=== PATIENT | female | born 1950 | race Asian ===

== ENCOUNTER 2020-07-11 11:27 | Outpatient (REF) | payer MEDICARE, MEDICAID, SELFPAY | END 2020-07-11 11:28 | disposition home or self-care (01) | LOC: HO.MDS 11:27 | PROVIDERS: PCP Internal Medicine; Visit Provider Internal Medicine Medical Oncology | DX: D50.9 Iron deficiency anemia, unspecified (principal) | CPT/HCPCS: 96365; J2916 ==

== ENCOUNTER 2020-07-18 11:42 | Outpatient (REF) | payer MEDICARE, MEDICAID, SELFPAY | END 2020-07-18 11:43 | disposition home or self-care (01) | LOC: HO.MDS 11:42 | PROVIDERS: PCP Internal Medicine; Visit Provider Internal Medicine Medical Oncology | DX: D50.9 Iron deficiency anemia, unspecified (principal) | CPT/HCPCS: 96365; J2916 ==

== ENCOUNTER 2020-07-25 11:09 | Outpatient (REF) | payer MEDICARE, MEDICAID, SELFPAY | END 2020-07-25 11:10 | disposition home or self-care (01) | LOC: HO.MDS 11:09 | PROVIDERS: PCP Internal Medicine; Visit Provider Internal Medicine Medical Oncology | DX: D50.9 Iron deficiency anemia, unspecified (principal) | CPT/HCPCS: 96365; J2916 ==

== ENCOUNTER 2020-08-01 10:43 | Outpatient (REF) | payer MEDICARE, MEDICAID, SELFPAY | END 2020-08-01 10:44 | disposition home or self-care (01) | LOC: HO.MDS 10:43 | PROVIDERS: PCP Internal Medicine; Visit Provider Internal Medicine Medical Oncology | DX: D50.9 Iron deficiency anemia, unspecified (principal) | CPT/HCPCS: 96365; J2916 ==

== ENCOUNTER → 2020-08-01 14:00 | Outpatient (BNV) | payer MEDICARE, MEDICAID, SELFPAY | PROVIDERS: PCP Internal Medicine; Visit Provider Internal Medicine Medical Oncology | DX: D50.9 Iron deficiency anemia, unspecified (principal); D51.9 Vitamin B12 deficiency anemia, unspecified | CPT/HCPCS: 99212; 99213; 99214 ==

== ENCOUNTER 2020-08-08 11:45 | Outpatient (REF) | payer MEDICARE, MEDICAID, SELFPAY | END 2020-08-08 11:46 | disposition home or self-care (01) | LOC: HO.MDS 11:45 | PROVIDERS: PCP Internal Medicine; Visit Provider Internal Medicine Medical Oncology | DX: D50.9 Iron deficiency anemia, unspecified (principal) | CPT/HCPCS: 96365; J2916 ==

== ENCOUNTER 2020-08-15 10:59 | Outpatient (REF) | payer MEDICARE, MEDICAID, SELFPAY | END 2020-08-15 11:00 | disposition home or self-care (01) | LOC: HO.MDS 10:59 | PROVIDERS: PCP Internal Medicine; Visit Provider Internal Medicine Medical Oncology | DX: D50.9 Iron deficiency anemia, unspecified (principal) | CPT/HCPCS: 96365; J2916 ==

== ENCOUNTER 2020-08-18 | Outpatient (REF) | payer MEDICARE, MEDICAID, SELFPAY ==
[2020-08-23 08:11] LABS: FIT Int Ctl YES; FIT1 POSITIVE (NEGATIVE); FIT2 NEGATIVE (NEGATIVE)
== END 2020-08-18 00:01 | disposition home or self-care (01) ==
LOC: HO.LNP
PROVIDERS: Visit Provider Internal Medicine Medical Oncology
DX: D64.9 Anemia, unspecified (principal)
CPT/HCPCS: 82274

== ENCOUNTER 2020-08-25 10:55 | Outpatient (REF) | payer MEDICARE, MEDICAID, SELFPAY | END 2020-08-25 10:56 | disposition home or self-care (01) | LOC: HO.MDS 10:55 | PROVIDERS: PCP Internal Medicine; Visit Provider Internal Medicine Medical Oncology | DX: D50.9 Iron deficiency anemia, unspecified (principal) | CPT/HCPCS: 96365; J2916 ==

== ENCOUNTER → 2020-08-29 09:39 | Outpatient (BNVA) | payer MEDICARE, MEDICAID, SELFPAY | PROVIDERS: PCP Internal Medicine; Visit Provider Internal Medicine Cardiovascular Disease | DX: I10 Essential (primary) hypertension (principal); R06.00 Dyspnea, unspecified | CPT/HCPCS: 93005; 99212 ==

== ENCOUNTER → 2020-10-06 12:46 | Outpatient (BNVA) | payer MEDICARE, MEDICAID, SELFPAY | PROVIDERS: Visit Provider Urology | DX: R32 Unspecified urinary incontinence (principal); N32.81 Overactive bladder | CPT/HCPCS: 81002; 99212 ==

== ENCOUNTER 2020-11-14 11:39 | Outpatient (REF) | payer MEDICARE, MEDICAID, SELFPAY ==
--- NOTE | ~2020-11-14 | MM_ITS ---
EXAMINATION: MM SCREENING DIGITAL BREAST TOMOSYNTHESIS, BILATERAL CLINICAL INFORMATION: Screening. Asymptomatic. The lifetime risk of breast cancer based on the Tyrer-Cuzick Model is 4%. COMPARISON: Mammography: 05/06/2019, 04/21/2019, 04/18/2018, 02/27/2016, 01/31/2015; targeted right breast ultrasound 05/06/2019. TECHNIQUE: Digital breast tomosynthesis is performed in both the craniocaudal and mediolateral oblique views along with computer-aided detection (CAD). Synthesized 2D images are generated from the tomosynthesis. Additional exaggerated right CC view is provided. FINDINGS: There are scattered areas of fibroglandular density (ACR BI-RADS breast composition Category b). Parenchymal pattern is similar to prior studies. Breast tissue composition borders on heterogeneously dense. There are shifting fibroglandular densities from year to year related to positioning. There are scattered asymmetries similar to prior studies. There is a known cyst superior periareolar right breast and an intramammary node again seen posterior left upper outer breast. No significant changes. MM/MM tomosynthesis screening BI IMPRESSION: No significant changes from prior studies. ASSESSMENT: BI-RADS 2: Benign RECOMMENDATION: Routine annual mammography screening. This patient's information was entered into a reminder system with a target due date for their next mammogram.
== END 2020-11-14 11:40 | disposition home or self-care (01) ==
LOC: HO.MAMMO 11:39
PROVIDERS: Visit Provider Internal Medicine
DX: Z12.31 Encounter for screening mammogram for malignant neoplasm of breast (principal)
CPT/HCPCS: 77063; 77067

== ENCOUNTER 2020-12-16 12:19 | Emergency (ER) | payer MEDICARE, MEDICAID, SELFPAY ==
--- NOTE | ~2020-12-16 | XR_ITS ---
EXAMINATION: XR CHEST CLINICAL INFORMATION: Edema COMPARISON: None TECHNIQUE: Frontal view of the chest was obtained. FINDINGS: No significant abnormality is noted involving the heart, lungs, mediastinum, bony thorax or soft tissues. XR/XR chest 1V IMPRESSION: Unremarkable chest examination.
--- NOTE | ~2020-12-16 | US_ITS ---
EXAMINATION: US VENOUS ULTRASOUND WITH DOPPLER LOWER EXTREMITY, BILATERAL CLINICAL INFORMATION: Bilateral lower extremity swelling COMPARISON: None TECHNIQUE: Ultrasound of the deep veins is performed from the hip to the calf with compression sonography and color and pulse Doppler assessment. Spectral analysis with color-flow imaging is performed. FINDINGS: RIGHT: There is normal venous compression and respiratory variation and augmented flow. The visualized common femoral vein, superficial femoral vein, profunda femoral vein, popliteal vein, and the trifurcation region shows no evidence of deep venous thrombosis. There is no significant popliteal fossa cyst. LEFT: There is normal venous compression and respiratory variation and augmented flow. The visualized common femoral vein, superficial femoral vein, profunda femoral vein, popliteal vein, and the trifurcation region shows no evidence of deep venous thrombosis. There is no significant popliteal fossa cyst. US/US venous duplex LE BI IMPRESSION: No DVT demonstrated in the bilateral lower extremity.
[2020-12-16 12:28] VITALS: BP 158/68; PULSE 85; RESP 18; TEMP 36.9; O2SAT 96; BMI 34.4
[2020-12-16 14:34] LABS: MANUAL DIFF FLAG NO
--- NOTE | 2020-12-16 14:38 | ECG_ITS ---
Test Reason : SWOLLEN LEGS Blood Pressure : / mmHG Vent. Rate : 073 BPM Atrial Rate : 073 BPM P-R Int : 162 ms QRS Dur : 080 ms QT Int : 420 ms P-R-T Axes : 049 000 048 degrees QTc Int : 462 ms Normal sinus rhythm Normal ECG When compared with ECG of 06-NOV-2019 18:01, No significant change was found Referred By: Yesica García Electronically Signed By:Trell Key
[2020-12-16 14:40] LABS: Glucose Urine UA NEG (NEG); Leukocyte Esterase Urine NEG (NEG); Nitrite Urine NEG (NEG); Specific Gravity - Urine 1.015 (1.005-1.025); Urine Blood NEG (NEG); Urine Ketones NEG (NEG); Urine Protein NEG (NEG-TRACE)
[2020-12-16 14:41] LABS: Basophils Percent Auto 0.5 % (0-2); Eosinophils Absolute Auto 0.3 X10*3/uL (0.0-0.4); Eosinophils Percent Auto 3.5 % (0-4); Hematocrit 39.6 % (37-47); Hemoglobin 12.1 g/dl (12.0-16.0); Imm Gran Abs Auto 0.02 X10*3/uL (0.00-0.03); Imm Gran Pct Auto 0.3 % (0.0-0.4); Lymphocytes Absolute Auto 2.1 X10*3/uL (1.2-4.9); Lymphocytes Percent Auto 26.2 % (20-40); Mean Corpuscular HGB Conc 30.6 g/dl (31.0-35.0); Mean Corpuscular Hemoglobin 25.5 pg (27.0-33.0); Mean Corpuscular Volume 83.4 fL (80-98); Mean Platelet Volume 8.6 fL (9.4-12.3); Monocytes Absolute Auto 0.6 X10*3/uL (0.1-1.2); Monocytes Percent Auto 7.6 % (2-11); Neutrophils Absolute Auto 4.9 X10*3/uL (2.0-8.3); Neutrophils Percent Auto 61.9 % (45-73); Platelet Count 276 X10*3/uL (160-400); Red Blood Count 4.75 X10*6/uL (4.20-5.50); Red Cell Distribution Width 15.1 % (11.0-16.0); White Blood Count 7.9 X10*3/uL (4.8-10.8)
[2020-12-16 14:44] LABS: Appearance Urine CLEAR; Color Urine YELLOW
[2020-12-16 15:00] LABS: Alanine Aminotransferase 41 U/L (0-31); Albumin Level 3.9 g/dL (3.5-5.0); Alkaline Phosphatase 80 U/L (39-117); Anion Gap 13 (12-20); Aspartate Amino Transferase 31 U/L (5-31); Bilirubin Direct < 0.2 mg/dL (0.0-0.5); Bilirubin Total 0.3 mg/dL (0.0-1.0); Blood Urea Nitrogen 18 mg/dL (9-16); Carbon Dioxide 27 mmol/L (22-29); Chloride 105 mmol/L (96-108); Creatinine Clr Calc Pharmacy 58.3; Estimated Glomerular Filt Rate 55; Glucose Random 104 mg/dL (60-115); Magnesium 2.1 mg/dL (1.6-2.6); Potassium 4.5 mmol/L (3.3-5.1); Sodium 140 mmol/L (135-145); Total Protein 6.9 g/dL (6.5-8.0)
[2020-12-16 15:07] LABS: B Type Natriuretic Peptide < 10 pg/mL (<100); Troponin-I High Sensitivity < 3.5 ng/L (<3.5-17.0)
--- NOTE | 2020-12-16 15:24 | ED_ITS ---
HPI - General Adult General Chief complaint: Extremity Injury, Lower Stated complaint: FEET SWELLING Time Seen by Provider: 12/16/20 14:04 Source: patient Mode of arrival: ambulatory Limitations: no limitations History of Present Illness HPI narrative: 70 y/o female with history of schizophrenia, anemia, HTN, hx GI bleed in the past who presents to the ER with new onset of bilateral lower leg and feet swelling for the last 10 days. She has never had swelling in her legs before. They are very uncomfortable to walk on. She denies history of heart failure or fluid retention. No SOB. Mild, persistent RIVERA for the last 1+ year, seen by Cardiology in August. She reports intermittent epigastric and central chest pain that have been occurring at night lately. No N/V/D. No cough. No orthopnea. No fever or chills. No skin changes to her lower legs. MD complaint: leg and feet swelling Onset (ago): day(s) (10) Location: left, right and lower extremity Radiation: proximal Severity: moderate Quality: aching Pain Consistency: intermittent Relieving factors: rest Associated symptoms: chest pain and shortness of breath Treatments prior to arrival: none Related Data Home Medications Medication Instructions Recorded Confirmed bupropion HCl [Wellbutrin XL] 300 mg PO DAILY 04/22/20 11/22/20 citalopram [Celexa] 20 mg PO DAILY 04/22/20 11/22/20 omeprazole 40 mg PO DAILY 04/22/20 11/22/20 trazodone 50 mg PO BEDTIME 04/22/20 11/22/20 Previous Rx's Medication Instructions Recorded dicyclomine 20 mg tablet 20 mg PO QID #90 tab 06/10/20 amlodipine 5 mg tablet 5 mg PO DAILY #60 tab 08/29/20 diaper,brief,adult,disposable #32 ea 10/06/20 mirabegron 50 mg tablet,extended 50 mg PO DAILY 90 Days #90 tab 10/06/20 release 24 hr ferrous sulfate 325 mg PO TID tab 10/25/20 furosemide [Lasix] 20 mg PO QAM #3 tab 12/16/20 Allergies Allergy/AdvReac Type Severity Reaction Status Date / Time No Known Allergies Allergy Verified 12/16/20 12:28 [No Known Allergies*] Review of Systems Review of Systems: Constitutional: No Fever, No Chills ENT/Mouth: No sore throat, No Rhinorrhea, No Swallowing Difficulty Cardiovascular: + Chest Pain, No SOB, No Orthopnea, + Edema Respiratory: No Cough, No Sputum, No Wheezing, + dyspnea Gastrointestinal: No Nausea, No Vomiting, No Diarrhea, No abdominal Pain, No Hematochezia, No Melena Genitourinary: No Dysuria, No Urinary Frequency, No Hematuria Musculoskeletal: No joint pain, No Myalgias Skin: No Skin Lesions, No rash Neuro: No Weakness, No Numbness, No Dizziness, No Headache Psych: No Anxiety/Panic, No Depression Heme/Lymph: No Bruising, No Lymphadenopathy Endocrine: No Polyuria, No Polydipsia [facility] Past Medical History Attestation statement: The following information was validated with the patient. Medical History Schizophrenia Surgical History History of bladder surgery History of cardiac catheterization History of cataract surgery History of laparoscopic cholecystectomy History of throat surgery Family History Family History Father Past heart attack Diabetes Mother Past heart attack Paternal Grandmother Stomach cancer Social History Social History Alcohol intake: current Alcohol intake frequency: a few times a week Patient Tobacco Use Status: Never used Tobacco Use of substances other than those prescribed or required for medical reasons: No Advance Directives: Yes Advance Directives Information Provided: Yes Advance Directives on File: No Physical Exam Vital Signs: Vital Signs: Last Vital Signs Temp 98.6 F 12/16/20 16:54 Pulse 75 12/16/20 16:54 Resp 18 12/16/20 16:54 BP 124/74 12/16/20 16:54 Pulse Ox 96 12/16/20 16:54 Body Mass Index 34.4 Appearance: Alert. Oriented X3. No acute distress. Eyes: Pupils equal, round and reactive to light. ENT: Pharynx normal. Neck: Normal inspection. Neck supple. CVS: Normal heart rate and rhythm. Pulses normal. Respiratory: No respiratory distress. Breath sounds normal. Laying flat, speaking in full sentences, no distress Abdomen: Soft and nontender. +BS x4 Skin: Skin warm and dry. Normal skin color. Normal skin turgor. No rashes. Extremities: 2+ lower extremity edema. No calf tenderness, no skin changes. Neuro: Oriented X 3. No motor deficit. No sensory deficit. Course Course Course Narrative: 70 y/o female presenting with nontraumtic bilateral LE edema for the last 10 days as well as intermittent chest pain that has been going on for some time. Described as burning, worse when she lays down and is most consistent with GERD. Will check EKG, CXR, lab workup including troponin and BNP. She denies having an ECHO in the past. Reevaluation(s) Reevaluation #1: Lab workup is unremarkable, troponin negaitve, BNP <10. CXR is clear. LE dopplers are pending. Reevaluation #2: LE dopplers negative. Will give 3 days worth of low dose lasix and have her follow up with PCP and Cardiology. Stable for discharge home. Medical Decision Making Lab Data Result diagrams: 12/16/20 14:27 12/16/20 14:27 Labs: Lab Results 12/16/20 12/16/20 12/16/20 Range/Units 14:26 14:27 14:27 WBC 7.9 (4.8-10.8) X10*3/uL RBC 4.75 (4.20-5.50) X10*6/uL Hgb 12.1 (12.0-16.0) g/dl Hct 39.6 (37-47) % MCV 83.4 (80-98) fL MCH 25.5 L (27.0-33.0) pg MCHC 30.6 L (31.0-35.0) g/dl RDW 15.1 (11.0-16.0) % Plt Count 276 (160-400) X10*3/uL MPV 8.6 L (9.4-12.3) fL Immature Gran % (Auto) 0.3 (0.0-0.4) % Neut % (Auto) 61.9 (45-73) % Lymph % (Auto) 26.2 (20-40) % Amador % (Auto) 7.6 (2-11) % Eos % (Auto) 3.5 (0-4) % Baso % (Auto) 0.5 (0-2) % Lymph # (Auto) 2.1 (1.2-4.9) X10*3/uL Amador # (Auto) 0.6 (0.1-1.2) X10*3/uL Eos # (Auto) 0.3 (0.0-0.4) X10*3/uL Baso # (Auto) 0.0 (0.0-0.2) X10*3/uL Abs Immat Gran (auto) 0.02 (0.00-0.03) X10*3/uL Absolute Neuts (auto) 4.9 (2.0-8.3) X10*3/uL Absolute Nucleated RBC 0.000 (0.0-0.012) X10*3/uL Nucleated RBC % (auto) 0.0 (0.0-0.2) /100WBC Hold Blue Top SEE NOTE Sodium (135-145) mmol/L Potassium (3.3-5.1) mmol/L Chloride (96-108) mmol/L Carbon Dioxide (22-29) mmol/L Anion Gap (12-20) BUN (9-16) mg/dL Creatinine (0.5-1.4) mg/dL Estim Creat Clear Calc Estimated GFR Random Glucose (60-115) mg/dL Calcium (8.4-10.2) mg/dL Magnesium (1.6-2.6) mg/dL Total Bilirubin (0.0-1.0) mg/dL Direct Bilirubin (0.0-0.5) mg/dL AST (5-31) U/L ALT (0-31) U/L Alkaline Phosphatase (39-117) U/L Troponin I High Sens (<3.5-17.0) ng/L B-Natriuretic Peptide (<100) pg/mL Total Protein (6.5-8.0) g/dL Albumin (3.5-5.0) g/dL Urine Color YELLOW Urine Appearance CLEAR Urine pH 7.0 (5.0-8.0) Ur Specific Weott 1.015 (1.005-1.025) Urine Protein NEG (NEG-TRACE) MG/DL Urine Glucose (UA) NEG (NEG) MG/DL Urine Ketones NEG (NEG) MG/DL Urine Blood NEG (NEG) Urine Nitrite NEG (NEG) Ur Leukocyte Esterase NEG (NEG) 12/16/20 12/16/20 Range/Units 14:27 14:27 WBC (4.8-10.8) X10*3/uL RBC (4.20-5.50) X10*6/uL Hgb (12.0-16.0) g/dl Hct (37-47) % MCV (80-98) fL MCH (27.0-33.0) pg MCHC (31.0-35.0) g/dl RDW (11.0-16.0) % Plt Count (160-400) X10*3/uL MPV (9.4-12.3) fL Immature Gran % (Auto) (0.0-0.4) % Neut % (Auto) (45-73) % Lymph % (Auto) (20-40) % Amador % (Auto) (2-11) % Eos % (Auto) (0-4) % Baso % (Auto) (0-2) % Lymph # (Auto) (1.2-4.9) X10*3/uL Amador # (Auto) (0.1-1.2) X10*3/uL Eos # (Auto) (0.0-0.4) X10*3/uL Baso # (Auto) (0.0-0.2) X10*3/uL Abs Immat Gran (auto) (0.00-0.03) X10*3/uL Absolute Neuts (auto) (2.0-8.3) X10*3/uL Absolute Nucleated RBC (0.0-0.012) X10*3/uL Nucleated RBC % (auto) (0.0-0.2) /100WBC Hold Blue Top Sodium 140 (135-145) mmol/L Potassium 4.5 (3.3-5.1) mmol/L Chloride 105 (96-108) mmol/L Carbon Dioxide 27 (22-29) mmol/L Anion Gap 13 (12-20) BUN 18 H (9-16) mg/dL Creatinine 1.01 (0.5-1.4) mg/dL Estim Creat Clear Calc 58.3 Estimated GFR 55 Random Glucose 104 (60-115) mg/dL Calcium 9.0 (8.4-10.2) mg/dL Magnesium 2.1 (1.6-2.6) mg/dL Total Bilirubin 0.3 (0.0-1.0) mg/dL Direct Bilirubin < 0.2 (0.0-0.5) mg/dL AST 31 (5-31) U/L ALT 41 H (0-31) U/L Alkaline Phosphatase 80 (39-117) U/L Troponin I High Sens < 3.5 (<3.5-17.0) ng/L B-Natriuretic Peptide < 10 (<100) pg/mL Total Protein 6.9 (6.5-8.0) g/dL Albumin 3.9 (3.5-5.0) g/dL Urine Color Urine Appearance Urine pH (5.0-8.0) Ur Specific Weott (1.005-1.025) Urine Protein (NEG-TRACE) MG/DL Urine Glucose (UA) (NEG) MG/DL Urine Ketones (NEG) MG/DL Urine Blood (NEG) Urine Nitrite (NEG) Ur Leukocyte Esterase (NEG) ECG Data Attestation: I personally reviewed and interpreted this ECG as follows: Interpretation: normal sinus rhyth, HR 73 bpm, normal OK interval, no ST segment elevations or depressions Discharge Plan Discharge Clinical Impression: Bilateral edema of lower extremity Patient Disposition: Home, Self-Care Instructions: Edema (ED) Additional Instructions: Your lab workup today was unremarkable. Your ultrasounds were normal, no blood clots. Chest x-ray was negative. Recommend elevating your legs whenever possible. Take the diuretic medication every morning for the next 3 days. Follow up with your doctor early next week as well as your [facility]. If you have worsening symptoms come back to the ER for further evaluation. Prescriptions: New furosemide [Lasix] 20 mg tablet 20 mg PO QAM Qty: 3 RF: 0 No Action dicyclomine 20 mg tablet 20 mg PO QID Qty: 90 RF: 8 ferrous sulfate 325 mg (65 mg iron) Tablet 325 mg PO TID RF: 1 trazodone 50 mg tablet 50 mg PO BEDTIME RF: 0 citalopram [Celexa] 20 mg tablet 20 mg PO DAILY RF: 0 bupropion HCl [Wellbutrin XL] 300 mg tablet extended release 24 hr 300 mg PO DAILY RF: 0 omeprazole 40 mg Capsule,Delayed Release(Dr/Ec) 40 mg PO DAILY RF: 0 amlodipine 5 mg tablet 5 mg PO DAILY Qty: 60 RF: 4 Myrbetriq 50 mg tablet extended release 24 hr 50 mg PO DAILY 90 Days Qty: 90 RF: 1 (DME) diaper,brief,adult,disposable Misc See Rx Instructions .ROUTE .MEDSUPPLY Qty: 32 RF: 3
[2020-12-16 16:54] VITALS: BP 124/74; PULSE 75; RESP 18; TEMP 37; O2SAT 96
--- NOTE | 2020-12-16 16:57 | PC.NURSE ---
unlabored resp. skin pwd. pitting edema to knees remains. unlabored resp. ls cta. awaits ultrasound results.
== END 2020-12-16 18:17 | disposition home or self-care (01) ==
PROVIDERS: Physician Assistant; Emergency Provider Emergency Medicine; PCP Internal Medicine
DX: R22.43 Localized swelling, mass and lump, lower limb, bilateral (principal); M79.662 Pain in left lower leg; M79.661 Pain in right lower leg; I10 Essential (primary) hypertension
CPT/HCPCS: 36415; 71045; 80048; 80076; 81003; 83735; 83880; 84484; 85025; 93005; 93970; 99284

== ENCOUNTER → 2021-01-06 13:10 | Outpatient (BNVA) | payer MEDICARE, MEDICAID, SELFPAY | PROVIDERS: PCP Internal Medicine; Referring Provider Internal Medicine; Visit Provider Nurse Practitioner | DX: K21.9 Gastro-esophageal reflux disease without esophagitis (principal); K59.04 Chronic idiopathic constipation; K22.2 Esophageal obstruction; K22.10 Ulcer of esophagus without bleeding; Z80.0 Family history of malignant neoplasm of digestive organs | CPT/HCPCS: 99212 ==

== ENCOUNTER 2021-03-15 10:28 | Outpatient (REF) | payer MEDICARE, MEDICAID, SELFPAY ==
--- NOTE | ~2021-03-15 | CT_ITS ---
EXAMINATION: CT SINUS WITHOUT CONTRAST CLINICAL INFORMATION: Postop nasal cavity, facial pain. COMPARISON: None TECHNIQUE: 2 mm thin axial, 2 mm thin coronal and sagittal images of sinuses were obtained without contrast. This CT examination was performed using dose optimization techniques as appropriate, variously including the following: *Automated exposure control *Adjustment of mA and/or kV according to patient size (this includes techniques or standardized protocols for targeted exams where dose is matched to indication/reason for exam; i.e. extremities or head) *Use of iterative reconstruction technique DLP: 95 mGy-cm FINDINGS: There is normal aeration of bilateral frontal ethmoid and sphenoid sinus. There is air-fluid level in bilateral maxillary sinuses. The left ostiomeatal complex is partially obscured by mucosal thickening. The right ostium complex appears patent. Bilateral frontoethmoidal recesses are patent as well. The nasal septum appears midline with normal symmetrical turbinates. The lamina papyracea and the cribriform plate are symmetrical and normal. The bony sinus finch are normal. Visualized bilateral optic globes, optic nerve and bony orbits are symmetrical and normal. Visualized intracranial brain parenchyma appears normal. ADDITIONAL RELEVANT FINDINGS: No periapical disease is seen. The TMJs articulate normally. The orbits and skull base soft tissues are unremarkable. There is mild mucoperiosteal thickening right middle ear suggestive of cholesteatoma. The mastoid sinuses are obliterated from mucoperiosteal thickening. The right internal and middle ear ossicles are normal. The left middle, external and internal auditory canal appears normal. Limited evaluation demonstrates no acute intracranial findings. CT/CT sinus wo con IMPRESSION: Bilateral maxillary sinus and small air-fluid levels suggestive of acute inflammatory process. 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
== END 2021-03-15 10:29 | disposition home or self-care (01) ==
LOC: HO.CT 10:28
PROVIDERS: PCP Internal Medicine; Visit Provider Otolaryngology
DX: J33.0 Polyp of nasal cavity (principal); G50.1 Atypical facial pain
CPT/HCPCS: 70486

== ENCOUNTER → 2021-04-12 14:08 | Outpatient (BNVA) | payer MEDICARE, MEDICAID, SELFPAY | PROVIDERS: PCP Internal Medicine | DX: R32 Unspecified urinary incontinence (principal) | CPT/HCPCS: 99212 ==

== ENCOUNTER → 2021-04-17 12:48 | Outpatient (BNVA) | payer MEDICARE, MEDICAID, SELFPAY | PROVIDERS: PCP Internal Medicine; Referring Provider Internal Medicine; Visit Provider Internal Medicine Cardiovascular Disease | DX: I10 Essential (primary) hypertension (principal) | CPT/HCPCS: 99212 ==

== ENCOUNTER → 2021-05-12 13:04 | Outpatient (BNVA) | payer MEDICARE, MEDICAID, SELFPAY | PROVIDERS: PCP Internal Medicine | DX: N32.81 Overactive bladder (principal); R32 Unspecified urinary incontinence | CPT/HCPCS: Q3014 ==

== ENCOUNTER 2021-05-26 14:00 | Outpatient (RCR) | payer MEDICARE, MEDICAID, SELFPAY | END 2021-11-27 11:34 | disposition home or self-care (01) | LOC: HO.PTCHIC 14:00 | PROVIDERS: PCP Internal Medicine; Visit Provider Nurse Practitioner Family | DX: M54.9 Dorsalgia, unspecified (principal) | CPT/HCPCS: 97110; 97140; 97150; 97161 ==

== ENCOUNTER 2021-06-30 14:00 | Outpatient (RCR) | payer MEDICARE, MEDICAID, SELFPAY ==
--- NOTE | 2021-06-01 15:18 | MHC.PT.EP ---
[facility] [place] [facility] [place] [facility] [place] [facility] [address] Lio Zhang 140 [facility] [phone] F: [phone] F: [phone] F: [phone] F: [phone] Physical Therapy Plan of Care Date of Evaluation: Date of Surgery: Diagnosis: Assessment: The patient reports significant bladder urgency as well as stress UI. She drinks several bladder irritants daily (coffee, alcohol, sugar, soda) She does not drink a lot of water. (2 glasses a day) Additionally, she had weakness, poor muscular endurance, and poor contractions of her pelvic floor muscles. The pt currently wears a depends daily due to often times not making it to the bathroom. Pt has low tone in her vaginal canal. She had dried stool around her perineum and I discussed good bathroom habits such as using a wet cloth, wiping front to back with BM. The patient is an excellent candidate for skilled Pelvic floor PT to improve muscle coordination, strength, and motor recruitment. Frequency and Duration: The patient will be seen 1x/week x 8 weeks Short Term Goals: 2. Pt to be able to demonstrate diaphragmatic breathing to improve pressure exchange and intra abdominal load management. 3. Pt to be educated on bladder irritants in order to decrease UI triggers 4. Pt to complete a voiding log in order to accurately assess her bladder habits 5. Pt to be educated on behavior training to help decrease urge incontinence. Group Home Goals: 1. Pt to report only have 8-10 urges to urinate daily to show an improvement with Urge incontinence 2. Pt to be identify and reduce diet and lifestyle irritants that aggravate the bladder. 3. Pt to be able to perform PFM for a 10 second hold with good muscle isolation to show improved NMR of pelvic floor muscles. Treatment Plan: Modalities to reduce pain, spasms and effusion. Manual therapy to restore motion and function. Therapeutic exercise to improve strength and flexibility. Neuromuscular re-education for posture and balance. Therapeutic activities to return to functional activities of daily living. Electronically signed by: Please sign and return to therapist. Thank you for your referral.
== END 2021-06-30 15:19 | disposition home or self-care (01) ==
LOC: HO.PT 14:00
DX: R32 Unspecified urinary incontinence (principal); N32.81 Overactive bladder
CPT/HCPCS: 97110; 97112; 97162; 97530

== ENCOUNTER → 2021-10-16 12:24 | Outpatient (BNVA) | payer MEDICARE, MEDICAID, SELFPAY | PROVIDERS: PCP Internal Medicine; Referring Provider Internal Medicine; Visit Provider Internal Medicine Cardiovascular Disease | DX: I10 Essential (primary) hypertension (principal); R53.83 Other fatigue; R35.89 Other polyuria | CPT/HCPCS: 93005; 99212 ==

== ENCOUNTER 2021-11-15 11:48 | Outpatient (REF) | payer MEDICARE, MEDICAID, SELFPAY ==
--- NOTE | ~2021-11-15 | MM_ITS ---
EXAMINATION: MM SCREENING DIGITAL BREAST TOMOSYNTHESIS, BILATERAL CLINICAL INFORMATION: Screening. Asymptomatic. The lifetime risk of breast cancer based on the Tyrer-Cuzick Model is 5%. COMPARISON: Mammography: 11/14/2020, 05/06/2019, 04/21/2019, 04/18/2018; ultrasound right breast 05/06/2019 TECHNIQUE: Digital breast tomosynthesis is performed in both the craniocaudal and mediolateral oblique views along with computer-aided detection (CAD). Synthesized 2D images are generated from the tomosynthesis. FINDINGS: The breasts are heterogeneously dense, which may obscure small masses (ACR BI-RADS breast composition Category c). Breast tissue composition borders on average fibroglandular. There is a small cyst again noted anterior right breast with smooth margins. Neither breast shows it significant mass or architectural abnormality or developing density. No abnormal calcifications. The axilla and skin contours are unremarkable. MM/MM tomosynthesis screening BI IMPRESSION: No significant changes from prior exams. ASSESSMENT: BI-RADS 2: Benign RECOMMENDATION: Routine annual mammography screening. This patient's information was entered into a reminder system with a target due date for their next mammogram.
== END 2021-11-15 11:49 | disposition home or self-care (01) ==
LOC: HO.MAMMO 11:48
PROVIDERS: PCP Internal Medicine; Visit Provider Internal Medicine
DX: Z12.31 Encounter for screening mammogram for malignant neoplasm of breast (principal)
CPT/HCPCS: 77063; 77067

== ENCOUNTER → 2021-11-16 13:51 | Outpatient (REF) | payer MEDICARE, MEDICAID, SELFPAY | LOC: HO.SL 13:51 | PROVIDERS: PCP Internal Medicine; Visit Provider Internal Medicine Cardiovascular Disease | DX: Z13.89 Encounter for screening for other disorder (principal) ==

== ENCOUNTER → 2022-01-02 09:57 | Outpatient (BNVA) | payer MEDICARE, MEDICAID, SELFPAY | PROVIDERS: PCP Internal Medicine; Visit Provider Nurse Practitioner | DX: K21.9 Gastro-esophageal reflux disease without esophagitis (principal); K59.04 Chronic idiopathic constipation; K22.10 Ulcer of esophagus without bleeding; Z79.899 Other long term (current) drug therapy; Z80.0 Family history of malignant neoplasm of digestive organs | CPT/HCPCS: 99212 ==

== ENCOUNTER → 2022-02-12 08:37 | Outpatient (BNVA) | payer MEDICARE, MEDICAID, SELFPAY | PROVIDERS: PCP Internal Medicine; Referring Provider Internal Medicine; Visit Provider Internal Medicine Cardiovascular Disease | DX: I10 Essential (primary) hypertension (principal); R06.00 Dyspnea, unspecified | CPT/HCPCS: 99212 ==

== ENCOUNTER → 2022-02-27 09:50 | Outpatient (REF) | payer MEDICARE, MEDICAID, SELFPAY | LOC: HO.SL 09:50 | PROVIDERS: PCP Internal Medicine; Visit Provider Internal Medicine Cardiovascular Disease | DX: R53.83 Other fatigue (principal); G47.30 Sleep apnea, unspecified | CPT/HCPCS: 95810 ==

== ENCOUNTER 2022-06-03 22:52 | Emergency (ER) | payer MEDICARE, MEDICAID, SELFPAY ==
--- NOTE | ~2022-06-03 | XR_ITS ---
EXAMINATION: XR CHEST CLINICAL INFORMATION: Shortness of breath and chest pain. COMPARISON: Chest radiograph 12/16/2020. TECHNIQUE: 2 views of the chest were obtained. FINDINGS: Normal appearance of the cardiomediastinal silhouette. Diffuse interstitial prominence, more noticeable in the right lower lobe. No pleural effusion or pneumothorax. No acute osseous abnormalities. Thoracic spondylosis. XR/XR chest 2V IMPRESSION: Diffuse interstitial prominence, more noticeable in the right lower lobe, raising the possibility of an atypical infectious or inflammatory process of the small airways with an early infiltrate in the right lung base.
[2022-06-03 23:28] VITALS: BP 110/60; PULSE 79; RESP 23; TEMP 36.8; O2SAT 94; BMI 34.3
--- NOTE | 2022-06-03 23:34 | ECG_ITS ---
Test Reason : SOB Blood Pressure : / mmHG Vent. Rate : 078 BPM Atrial Rate : 078 BPM P-R Int : 154 ms QRS Dur : 072 ms QT Int : 394 ms P-R-T Axes : 065 015 054 degrees QTc Int : 449 ms Normal sinus rhythm Low voltage QRS Otherwise normal ECG When compared with ECG of 16-DEC-2020 14:38, No significant change was found Referred By: Generic ED Physician Electronically Signed By:TORI KUO MD
[2022-06-03 23:49] LABS: MANUAL DIFF FLAG NO
[2022-06-03 23:51] LABS: Basophils Percent Auto 0.6 % (0-2); Eosinophils Absolute Auto 0.1 X10*3/uL (0.0-0.4); Eosinophils Percent Auto 2.9 % (0-4); Hematocrit 35.3 % (37.0-47.0); Hemoglobin 11.1 g/dl (12.0-16.0); Imm Gran Abs Auto 0.01 X10*3/uL (0.00-0.03); Imm Gran Pct Auto 0.2 % (0.0-0.4); Lymphocytes Absolute Auto 2.1 X10*3/uL (1.2-4.9); Lymphocytes Percent Auto 43.7 % (20-40); Mean Corpuscular HGB Conc 31.4 g/dl (31.0-35.0); Mean Corpuscular Volume 89.1 fL (80.0-98.0); Mean Platelet Volume 8.6 fL (9.4-12.3); Monocytes Absolute Auto 0.4 X10*3/uL (0.1-1.2); Monocytes Percent Auto 8.7 % (2-11); Neutrophils Absolute Auto 2.1 x10*3/uL (2.0-8.3); Neutrophils Percent Auto 43.9 % (45-73); Platelet Count 250 X10*3/uL (160-400); Red Blood Count 3.96 X10*6/uL (4.20-5.50); Red Cell Distribution Width 14.1 % (11.0-16.0); White Blood Count 4.9 X10*3/uL (4.8-10.8)
[2022-06-04 00:15] LABS: Alanine Aminotransferase 22 U/L (0-31); Albumin Level 3.8 g/dL (3.5-5.0); Alkaline Phosphatase 60 U/L (39-117); Anion Gap 16 (12-20); Aspartate Amino Transferase 21 U/L (5-31); Bilirubin Total 0.2 mg/dL (0.0-1.0); Blood Urea Nitrogen 10 mg/dL (9-16); Calcium 8.6 mg/dL (8.4-10.2); Carbon Dioxide 22 mmol/L (22-29); Chloride 107 mmol/L (96-108); Creatinine Clr Calc Pharmacy 63.6; Estimated Glomerular Filt Rate > 60; Glucose Random 153 mg/dL (60-115); Potassium 4.1 mmol/L (3.3-5.1); Sodium 141 mmol/L (135-145); Total Protein 6.5 g/dL (6.5-8.0)
[2022-06-04 00:18] LABS: B Type Natriuretic Peptide 12 pg/mL (<100); Troponin-I High Sensitivity < 3.5 ng/L (<3.5-17.0)
[2022-06-04 00:30] LABS: Influenza A PCR NEGATIVE (Negative); Influenza B PCR NEGATIVE (Negative); Resp Syncy Virus RNA Qual PCR NEGATIVE (Negative); SARS COV2 PCR INHOUSE NEGATIVE (Negative)
--- OUTSIDE RECORDS SUMMARY | 2022-06-04 01:05 | XMS_ITS | Continuity of Care Document ---
:1950 Author Organization [facility] Address [address] [place] [id number] Care Team Providers Name Role Phone Ishmael Zhou MD Primary Care Physician Encounter [facility] Date(s): 09/01/19 - 09/01/[address] [address]- [facility] Discharge Disposition: A-D/C Home Attending Physician: Trell Key MD Admitting Physician: Trell Key MD Referring Physician: Trell Key MD Allergies, Adverse Reactions, Alerts Substance Reaction Severity Status NKA Active Immunizations Given and Recorded Vaccine Date Status Refusal Reason pneumococcal 23-valent vaccine 06/07/15 Given Medications amLODIPine 5 mg oral tablet 1 tablet = 5 mg, By Mouth, Daily, # 30 tablet, 0 Refills, Maintenance, 09/01/19 6:57:00 EST, Tablet Start Date: 09/01/19 Status: OrderedbuPROPion 300 mg/24 hours (XL) oral tablet, extended release 1 tablet = 300 mg, By Mouth, Daily, # 30 tablet, 0 Refills, Maintenance, 09/01/19 6:55:00 EST, ER Tablet Start Date: 09/01/19 Status: Orderedcitalopram 20 mg oral tablet = 20 mg, By Mouth, Daily, 0 Refills, Maintenance, 06/07/15 14:13:42, Tablet Start Date: 06/07/15 Status: Ordereddocusate sodium 100 mg oral capsule 1 capsule = 100 mg, By Mouth, 2 times a day, # 28 capsule, 0 Refills, Maintenance, 06/07/15 14:13:58, Capsule, 1 capsule By Mouth 2 times a day,x14 days Start Date: 06/07/15 Stop Date: 06/21/15 Status: OrderedMyrbetriq 50 mg oral tablet, extended release 1 tablet = 50 mg, By Mouth, Daily, PRN Pain , Mild, 0 Refills, Maintenance, 09/01/19 6:59:00 EST Start Date: 09/01/19 Status: Orderedolanzapine 7.5 mg oral tablet = 7.5 mg, By Mouth, Daily at bedtime, 0 Refills, Maintenance, 06/07/15 14:14:59, Tablet Start Date: 06/07/15 Status: OrderedPercocet-5/325 325 mg-5 mg oral tablet 1 tablet, By Mouth, Every 6 hours, PRN Pain , Moderate, # 12 tablet, 0 Refills, Maintenance, 06/19/15 19:11:19 Start Date: 06/19/15 Stop Date: 06/22/15 Status: OrderedProtonix 40 mg oral delayed release tablet 1 tablet = 40 mg, By Mouth, Daily, # 21 tablet, 0 Refills, Maintenance, 06/07/15 14:17:06, EC Tablet, 1 tablet By Mouth Daily,x21 days Start Date: 06/07/15 Stop Date: 06/28/15 Status: Ordered Problem List Condition Effective Dates Status Health Status Informant Depression(Confirmed) Active Nausea and vomiting(Confirmed) Active Schizophrenia(Confirmed) Active Vital Signs Most recent to oldest 1 2 3 [Reference Range]: Height 163 cm 163 cm 163 cm (09/01/19 7:43 AM) (09/01/19 7:35 AM) (09/01/19 7:1 6 AM) Weight 85.90 kg 85.90 kg (09/01/19 7:35 AM) (09/01/19 7:16 AM) Oxygen Saturation [94-100 %] 96 % (09/01/19 7:43 AM) Pulse Rate [55-90 bpm] 79 bpm (09/01/19 7:43 AM) Blood Pressure [90-138/55-84 mm 142/70 mm Hg Hg] *H* (09/01/19 7:43 AM) Respiratory Rate [16-30 br/min] 24 br/min (09/01/19 7:43 AM) Temperature [96.8-100.4 DegF] 98.3 DegF (09/01/19 7:43 AM) Mode of Delivery (Oxygen) Room air (09/01/19 7:43 AM) Blood pressure sites Arm, right (09/01/19 7:43 AM) Temperature Route Oral (09/01/19 7:43 AM) Dry Weight 85.90 kg (09/01/19 7:16 AM)
--- OUTSIDE RECORDS SUMMARY | 2022-06-04 01:05 | XMS_ITS | Continuity of Care Document ---
:1950 Author Organization [facility] Address [address] [place] [id number]- Care Team Providers Name Role Phone Ishmael Zhou MD Primary Care Physician Encounter [facility] [place] Date(s): 01/25/22 - 01/26/[address] [address]- Discharge Disposition: A-D/C Walkout Attending Physician: Not on Staff, Attending MD Admitting Physician: Not on Staff, Admitting MD Referring Physician: Not on Staff, Referring MD Allergies, Adverse Reactions, Alerts No Known Allergies Immunizations Given and Recorded Vaccine Date Status [...] Active Vital Signs Most recent to oldest [Reference 1 2 3 Range]: Oxygen Saturation [94-100 %] 99 % 99 % 100 % (01/26/22 12:06 AM) (01/25/22 9:41 PM) (01/25/22 6:57 PM) Pulse Rate [55-90 bpm] 74 bpm 73 bpm 109 bpm (01/26/22 12:06 AM) (01/25/22 9:41 PM) *H* (01/25/22 6:57 PM) Blood Pressure [90-138/55-84 mm 141/61 mm Hg 140/66 mm Hg 140/78 mm Hg Hg] *H* *H* *H* (01/26/22 12:06 AM) (01/25/22 9:41 PM) (01/25/22 6:57 PM) Respiratory Rate [16-30 br/min] 18 br/min 18 br/min (01/25/22 6:57 PM) (01/25/22 4:23 PM) Temperature [96.8-100.4 DegF] 97.4 DegF 98.4 DegF 99 .6 DegF (01/26/22 12:06 AM) (01/25/22 9:41 PM) (01/25/22 6:57 PM) Mode of Delivery (Oxygen) Room air Room air Room a ir (01/26/22 12:06 AM) (01/25/22 9:41 PM) (01/25/22 6:57 PM) Blood pressure sites Arm, right Arm, right Arm, right (01/26/22 12:06 AM) (01/25/22 9:41 PM) (01/25/22 6:57 PM) Temperature Route Temporal Temporal Oral (01/26/22 12:06 AM) (01/25/22 9:41 PM) (01/25/22 6:57 PM)
--- OUTSIDE RECORDS SUMMARY | 2022-06-04 01:06 | XMS_ITS | Continuity of Care Document ---
:1950 Author Organization [facility] Address [address] [place] [id number]- Care Team Providers Name Role Phone Ishmael Zhou MD Primary Care Physician Encounter [facility] [place] Date(s): 08/03/19 - 09/03/[address] [address]- [facility] Attending Physician: Trell Key MD Admitting Physician: Trell Key MD Allergies, Adverse Reactions, [...]
--- NOTE | 2022-06-04 01:27 | ED.SOB ---
HPI - SOB/Dyspnea General Chief Complaint: Upper Respiratory Symptoms Stated Complaint: Flu like symptoms x4 Days Time Seen by Provider: 06/04/22 01:08 Source: patient and family Mode of arrival: ambulatory History of Present Illness HPI Narrative: 71-year-old female who presents with 3 days cough that is productive whitish phlegm and subsequent associated chest pain with a cough and feeling mildly short of breath and states that she had chills yesterday. She otherwise denies any GI or symptoms. Related Data Home Medications Medication Instructions Recorded Confirmed ferrous sulfate 325 mg (65 mg 325 mg PO DAILY 12/22/21 04/04/22 iron) tablet citalopram 20 mg tablet 20 mg PO DAILY 02/12/22 04/04/22 dicyclomine 20 mg tablet 20 mg PO ONCE 02/12/22 04/04/22 olanzapine 7.5 mg tablet 7.5 mg PO DAILY 02/12/22 04/04/22 omeprazole 40 mg capsule,delayed 40 mg PO DAILY 02/12/22 04/04/22 release Previous Rx's Medication Instructions Recorded diaper,brief,adult,disposable #10 ea 04/12/21 ([place] Choice Comfort Protect Adult Diaper X-Large) amlodipine 5 mg tablet 5 mg PO DAILY #90 tabs 04/17/21 diaper,brief,adult,disposable #32 ea 12/22/21 Allergies Allergy/AdvReac Type Severity Reaction Status Date / Time No Known Allergies Allergy Verified 04/04/22 13:21 [No Known Allergies*] Review of Systems Review of Systems: Pertinent positives and negatives as stated in HPI 10 point review of systems is otherwise negative. [facility] Past Medical History Source: nursing notes reviewed Medical History Schizophrenia Surgical History History of bladder surgery History of cardiac catheterization History of cataract surgery History of esophagogastroduodenoscopy (EGD) History of laparoscopic cholecystectomy History of throat surgery Hx of colonoscopy Family History Family History Father Past heart attack Diabetes Mother Past heart attack Paternal Grandmother Stomach cancer Other Mental health disorder Social History Social History Household Members: None Housing: Apartment Are you a primary post anesthesia care unit nurse to a significant other at home: No Do you presently have visiting nurse or other home services: No Alcohol intake: current Alcohol intake frequency: does not drink Patient Tobacco Use Status: Never used Tobacco e-Cigarette/Vaping Use: Never Used Second Hand Smoke Exposure: No Advance Directives: No service: No Current occupational status: disabled Cognitive needs: Yes (cane) Hearing needs: No Vision needs: No Physical Exam Vital Signs: Vital Signs: Last Vital Signs Temp 98.2 F 06/03/22 23:28 Pulse 79 06/03/22 23:28 Resp 23 H 06/03/22 23:28 BP 110/60 06/03/22 23:28 Pulse Ox 94 06/03/22 23:28 O2 Del Method 06/03/22 23:28 BMI result Body Mass Index 34.3 VITAL SIGNS: Reviewed. GENERAL: Well developed, well nourished, in no acute distress. HEAD: Normocephalic/atraumatic EYES: PERRLA, EOMI EARS: Ext canals without abnormality OROPHARYNX: no oral lesions noted, posterior pharynx clear LUNGS: Decreased right lower base with trace expiratory wheeze but no increased tachypnea. SpO2<94> CARDIOVASCULAR: Regular rate and rhythm without noted murmurs ABDOMEN: Soft, non-tender, non-distended with bowel sounds. MUSCULOSKELETAL: No tenderness, deformities, or effusions noted on gross inspection. EXTREMITIES: No cyanosis, clubbing or edema. SKIN: Inspection of the skin reveals no rashes NEUROLOGIC: Alert and oriented x 4. Strength and sensation to light touch were grossly intact x 4. Course Course Course Narrative: 71-year-old female with history and clinical presentation of possible viral infection versus pneumonia but otherwise mild tachypnea without hypoxia and otherwise patient appears comfortable. After review of all investigations. There is a right lower lobe pneumonia without obvious hypoxia and patient is otherwise comfortable. She received both cough medication as well as initial antibiotics here in the emergency room and was discharged home in stable condition. MDM - SOB/Dyspnea Lab Data Result diagrams: 06/03/22 23:46 06/03/22 23:46 Labs: Lab Results 06/03/22 06/03/22 06/03/22 Range/Units 23:46 23:46 23:46 WBC 4.9 (4.8-10.8) X10*3/uL RBC 3.96 L (4.20-5.50) X10*6/uL Hgb 11.1 L (12.0-16.0) g/dl Hct 35.3 L (37.0-47.0) % MCV 89.1 (80.0-98.0) fL MCH 28.0 (27.0-33.0) pg MCHC 31.4 (31.0-35.0) g/dl RDW 14.1 (11.0-16.0) % Plt Count 250 (160-400) X10*3/uL MPV 8.6 L (9.4-12.3) fL Immature Gran % (Auto) 0.2 (0.0-0.4) % Neut % (Auto) 43.9 L (45-73) % Lymph % (Auto) 43.7 H (20-40) % Whiteside % (Auto) 8.7 (2-11) % Eos % (Auto) 2.9 (0-4) % Baso % (Auto) 0.6 (0-2) % Lymph # (Auto) 2.1 (1.2-4.9) X10*3/uL Whiteside # (Auto) 0.4 (0.1-1.2) X10*3/uL Eos # (Auto) 0.1 (0.0-0.4) X10*3/uL Baso # (Auto) 0.0 (0.0-0.2) X10*3/uL Abs Immat Gran (auto) 0.01 (0.00-0.03) X10*3/uL Absolute Neuts (auto) 2.1 (2.0-8.3) x10*3/uL Absolute Nucleated RBC 0.000 (0.0-0.012) X10*3/uL Nucleated RBC % (auto) 0.0 (0.0-0.2) /100WBC Sodium 141 (135-145) mmol/L Potassium 4.1 (3.3-5.1) mmol/L Chloride 107 (96-108) mmol/L Carbon Dioxide 22 (22-29) mmol/L Anion Gap 16 (12-20) BUN 10 (9-16) mg/dL Creatinine 0.91 (0.5-1.4) mg/dL Estim Creat Clear Calc 63.6 Estimated GFR > 60 Random Glucose 153 H (60-115) mg/dL Calcium 8.6 D (8.4-10.2) mg/dL Magnesium 2.0 (1.6-2.6) mg/dL Total Bilirubin 0.2 (0.0-1.0) mg/dL AST 21 (5-31) U/L ALT 22 (0-31) U/L Alkaline Phosphatase 60 (39-117) U/L Troponin I High Sens < 3.5 (<3.5-17.0) ng/L B-Natriuretic Peptide (<100) pg/mL Total Protein 6.5 (6.5-8.0) g/dL Albumin 3.8 (3.5-5.0) g/dL Influenza Type A (PCR) (Negative) Influenza Type B (PCR) (Negative) RSV RNA Qual (PCR) (Negative) SARS-CoV-2 RNA (RT-PCR) (Negative) 06/03/22 06/03/22 Range/Units 23:46 23:46 WBC (4.8-10.8) X10*3/uL RBC (4.20-5.50) X10*6/uL Hgb (12.0-16.0) g/dl Hct (37.0-47.0) % MCV (80.0-98.0) fL MCH (27.0-33.0) pg MCHC (31.0-35.0) g/dl RDW (11.0-16.0) % Plt Count (160-400) X10*3/uL MPV (9.4-12.3) fL Immature Gran % (Auto) (0.0-0.4) % Neut % (Auto) (45-73) % Lymph % (Auto) (20-40) % Whiteside % (Auto) (2-11) % Eos % (Auto) (0-4) % Baso % (Auto) (0-2) % Lymph # (Auto) (1.2-4.9) X10*3/uL Whiteside # (Auto) (0.1-1.2) X10*3/uL Eos # (Auto) (0.0-0.4) X10*3/uL Baso # (Auto) (0.0-0.2) X10*3/uL Abs Immat Gran (auto) (0.00-0.03) X10*3/uL Absolute Neuts (auto) (2.0-8.3) x10*3/uL Absolute Nucleated RBC (0.0-0.012) X10*3/uL Nucleated RBC % (auto) (0.0-0.2) /100WBC Sodium (135-145) mmol/L Potassium (3.3-5.1) mmol/L Chloride (96-108) mmol/L Carbon Dioxide (22-29) mmol/L Anion Gap (12-20) BUN (9-16) mg/dL Creatinine (0.5-1.4) mg/dL Estim Creat Clear Calc Estimated GFR Random Glucose (60-115) mg/dL Calcium (8.4-10.2) mg/dL Magnesium (1.6-2.6) mg/dL Total Bilirubin (0.0-1.0) mg/dL AST (5-31) U/L ALT (0-31) U/L Alkaline Phosphatase (39-117) U/L Troponin I High Sens (<3.5-17.0) ng/L B-Natriuretic Peptide 12 (<100) pg/mL Total Protein (6.5-8.0) g/dL Albumin (3.5-5.0) g/dL Influenza Type A (PCR) NEGATIVE (Negative) Influenza Type B (PCR) NEGATIVE (Negative) RSV RNA Qual (PCR) NEGATIVE (Negative) SARS-CoV-2 RNA (RT-PCR) NEGATIVE (Negative) Discharge Plan Discharge Clinical Impression: Pneumonia Patient Disposition: Home, Self-Care Instructions: Pneumonia (ED) Additional Instructions: 1. Resume all home medications as prescribed. 2. Complete the entire course of antibiotics as prescribed. 3. Recommend bedside cool mist humidifier for additional breathing ease. 4. Please call the office of your primary care provider in the morning and set up an appointment for re-evaluation. Return to the ER for worsening symptoms. Prescriptions: No Action (DME) diaper,brief,adult,disposable Misc See Rx Instructions .ROUTE .MEDSUPPLY Qty: 32 3RF Rx Instructions: As directed ferrous sulfate 325 mg (65 mg iron) tablet 325 mg PO DAILY (DME) [employer] Choice Comf Protect XL Misc See Rx Instructions .ROUTE .MEDSUPPLY Qty: 10 0RF Rx Instructions: As directed olanzapine 7.5 mg tablet 7.5 mg PO DAILY citalopram 20 mg tablet 20 mg PO DAILY amlodipine 5 mg tablet 5 mg PO DAILY Qty: 90 4RF dicyclomine 20 mg tablet 20 mg PO ONCE omeprazole 40 mg capsule,delayed release(DR/EC) 40 mg PO DAILY Referrals: Ishmael Zhou MD [Primary Care Provider] -
[2022-06-04] MEDS: Doxycycline Monohydrate 100 MG CAPSULE PO (01:45)
[2022-06-04] MEDS: Benzonatate 100 MG CAPSULE 200 MG PO (01:45)
[2022-06-04 02:01] VITALS: O2SAT 97
[2022-06-04 02:02] VITALS: BP 116/64; PULSE 78; RESP 18; TEMP 37.1; O2SAT 97
== END 2022-06-04 02:04 | disposition home or self-care (01) ==
PROVIDERS: Emergency Provider Student in an Organized Health Care Education/Training Program; PCP Internal Medicine
DX: J18.9 Pneumonia, unspecified organism (principal); R06.02 Shortness of breath; Z20.822 Contact with and (suspected) exposure to COVID-19; E66.9 Obesity, unspecified; Z68.34 Body mass index [BMI] 34.0-34.9, adult
CPT/HCPCS: 0241U; 36415; 71046; 80053; 83735; 83880; 84484; 85025; 93005; 99283; 99284

== ENCOUNTER → 2022-08-08 13:42 | Outpatient (BNVA) | payer MEDICARE, MEDICAID, SELFPAY | PROVIDERS: PCP Internal Medicine; Referring Provider Internal Medicine; Visit Provider Internal Medicine Cardiovascular Disease | DX: I10 Essential (primary) hypertension (principal); R06.00 Dyspnea, unspecified; E66.9 Obesity, unspecified; Z68.33 Body mass index [BMI] 33.0-33.9, adult; Z79.899 Other long term (current) drug therapy | CPT/HCPCS: 99212 ==

== ENCOUNTER 2022-10-24 13:35 | Outpatient (REF) | payer MEDICARE, MEDICAID, SELFPAY ==
--- NOTE | ~2022-10-24 | MR_ITS ---
EXAMINATION: MR BRAIN WITHOUT AND WITH CONTRAST CLINICAL INFORMATION: 72-year-old with chronic left facial pain. Left trigeminal neuralgia. Evaluate for left trigeminal lesion. COMPARISON: None available. TECHNIQUE: Multiplanar, multisequence MRI of the brain/extracranial head neck was obtained before and after the intravenous administration of 10 mL Gadavist. Study is somewhat limited due to motion artifact. FINDINGS: Brain Volume: Within normal limits within the limitations of qualitative assessment. Structural: No malformations. Brain and Meninges: DWI sequence demonstrates no restricted diffusion to suggest acute or subacute cerebral ischemia. There are scattered small, subcentimeter foci of FLAIR/T2 signal hyperintensity in the subcortical white matter of both cerebral hemispheres with patchy zones of T2 hyperintensity in the peritrigonal white matter bilaterally with no abnormal enhancement, which are nonspecific findings, but likely reflect the zones of chronic ischemic microangiopathy in a patient of this age. No extra-axial fluid collections, intracranial mass lesions or pathologic intracranial enhancement are identified. The cisternal and cavernous portions of the trigeminal nerves are visualized bilaterally and demonstrate no evidence for mass lesion or abnormal enhancement with a normal appearance to Meckel's caves. The trigeminal fat pads are symmetric with no abnormal enhancement or focal lesion. The visualized mandible appears grossly intact and symmetric. The infraorbital grooves are unremarkable and symmetric. The cavernous sinuses enhance normally and are relatively symmetric. Ventricles and Subarachnoid Spaces: The ventricular system and subarachnoid spaces are within normal range; there is no hydrocephalus. Orbital Structures: Bilateral lens extractions are noted. Otherwise, the visualized orbital structures are grossly unremarkable within the limitations of the study. Vascular: Signal voids are noted in the visualized major intracranial vessels. Osseous Structures, Sinuses/Mastoids, Extracranial Soft Tissues: There are mastoid effusions noted bilaterally with fluid in the right middle ear cavity, with associated enhancement in both mastoids suggesting inflammatory changes. Correlate for clinical otologic disease bilaterally. The visualized extracranial soft tissues are otherwise unremarkable in appearance. MR/MR head/brain wo/w con IMPRESSION: 1. No evidence for trigeminal nerve lesion or abnormal enhancement. 2. 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 No acute intracranial process. 3. Bilateral mastoid effusions and right middle ear cavity fluid with associated with some mastoid enhancement enhancement suggesting inflammatory changes. Correlate for clinical otologic disease bilaterally. If clinically warranted, CT of the temporal bones may be of additional value to further assess the osseous anatomy.
== END 2022-10-24 13:36 | disposition home or self-care (01) ==
LOC: HO.MRI 13:35
PROVIDERS: PCP Internal Medicine; Visit Provider Psychiatry & Neurology Neurology
DX: G50.0 Trigeminal neuralgia (principal)
CPT/HCPCS: 70553; A9585

== ENCOUNTER 2022-12-04 15:15 | Outpatient (REF) | payer MEDICARE, MEDICAID, SELFPAY ==
--- NOTE | ~2022-12-04 | MM_ITS ---
EXAMINATION: MM SCREENING DIGITAL BREAST TOMOSYNTHESIS, BILATERAL CLINICAL INFORMATION: Screening. Asymptomatic. The lifetime risk of breast cancer based on the Tyrer-Cuzick Model is 4%. COMPARISON: Mammography: 11/15/2021, 11/14/2020, 05/06/2019, 04/21/2019; ultrasound right breast 05/06/2019 TECHNIQUE: Digital breast tomosynthesis is performed in both the craniocaudal and mediolateral oblique views along with computer-aided detection (CAD). Synthesized 2D images are generated from the tomosynthesis. Additional left CC and left MLO views are provided. FINDINGS: The breasts are heterogeneously dense, which may obscure small masses (ACR BI-RADS breast composition Category c). Parenchymal pattern is similar to prior studies and there is no significant mass, developing density, or architectural abnormality. Incidental small cyst again seen periareolar upper outer right breast. Intramammary nodes again noted posterior upper outer left breast. No abnormal calcifications. The axilla and skin contours are unremarkable. MM/MM tomosynthesis screening BI IMPRESSION: No mammographic evidence of malignancy. ASSESSMENT: BI-RADS 2: Benign RECOMMENDATION: Routine annual mammography screening. This patient's information was entered into a reminder system with a target due date for their next mammogram.
== END 2022-12-04 15:16 | disposition home or self-care (01) ==
LOC: HO.MAMMO 15:15
PROVIDERS: Visit Provider Internal Medicine
DX: Z12.31 Encounter for screening mammogram for malignant neoplasm of breast (principal)
CPT/HCPCS: 77063; 77067

== ENCOUNTER 2023-01-30 12:52 | Outpatient (AMB) | payer MEDICARE, MEDICAID, SELFPAY ==
--- NOTE | 2023-01-30 13:06 | MHC.OFFVIS ---
Intake Vital Signs 01/30/23 13:07 Height 5 ft 4 in Weight 200 lb 2.876 oz BMI 34.4 BP 122/66 Blood Pressure Location Lt brachial Position Sitting Pulse 84 Pulse Source Monitor Intake Visit Reasons: 6 mth f/up Intake Note: 6 month follow up with EKG. Jigger Machine Operator Required: No Accompanied by: Self / Same As Patient Allergies No Known Allergies [No Known Allergies*] Allergy (Verified 01/30/23 13:08) Medication List - Last Reconciled 01/30/23 by Trell Key MD amlodipine 5 mg PO DAILY bupropion HCl 300 mg PO DAILY carbamazepine 200 mg PO TID citalopram 20 mg PO DAILY diaper,brief,adult,disposable As directed diaper,brief,adult,disposable ([place] Choice Comfort Protect Adult Diaper X-Large) As directed ferrous sulfate 325 mg PO DAILY olanzapine 7.5 mg PO DAILY omeprazole 40 mg PO DAILY [pull ups twice per day as needed] HPI HPI Comments History of Present Illness Details 72-year-old female who is here follow-up. She has background history of dyspnea. She had anemia in the past which has been stable mostly. She also had coronary angiography for dyspnea on exertion which was unremarkable. She is returning and is complaining of fatigue and shortness of breath. She is quite sedentary at this stage and does not exercise regularly. Denying any other symptoms in particular no chest discomfort. Taking medications regularly and tolerating them well. Blood pressure control is good. 01/30/23: She returns for follow-up. She has been experiencing some pressure-like feeling at nighttime. His last for hours and does not happen during the day. She has significant issues with previous esophageal stricture as well as he has esophagitis. She has acid reflux. She is denying any chest discomfort shortness of breath with activity. [facility] Medical History Schizophrenia Surgical History History of bladder surgery History of cardiac catheterization History of cataract surgery History of esophagogastroduodenoscopy (EGD) History of laparoscopic cholecystectomy History of throat surgery Hx of colonoscopy Family History Father Past heart attack Diabetes Mother Past heart attack Paternal Grandmother Stomach cancer Other Mental health disorder Social History Household Members: None Housing: Apartment Are you a primary lawn care worker to a significant other at home: No Do you presently have visiting nurse or other home services: No Alcohol intake: never Patient Tobacco Use Status: Never used Tobacco e-Cigarette/Vaping Use: Never Used Second Hand Smoke Exposure: No service: No Current occupational status: disabled Cognitive needs: Yes (cane) Hearing needs: No Vision needs: No Review of Systems Const Denies weakness ENT Denies dizziness Card Denies chest pain, Denies chest pain with activity, Denies syncope, Denies rapid heart rate, Denies pedal edema, Denies edema, Denies leg edema, Denies lightheadedness, Denies palpitations, Denies dyspnea, Denies dyspnea on exertion and Denies orthopnea Resp Denies cough, Denies dyspnea and Denies dyspnea on exertion GI Denies hematochezia and Denies change in stool character Musc Denies abnormal gait, Denies muscle cramps, Denies muscle weakness, Denies numbness, Denies radiating pain into limb and Denies tingling Neuro Denies abnormal gait, Denies dizziness, Denies syncope, Denies numbness, Denies tingling and Denies weakness Endo Denies palpitations Physical Exam Vital Signs: Last Vital Signs Pulse 84 01/30/23 13:07 BP 122/66 01/30/23 13:07 BMI result Body Mass Index 34.4 GENERAL APPEARANCE: in no acute distress, pleasant. NECK: no carotid bruit, no jugular venous distention. SKIN: no suspicious lesions, warm and dry. HEART: no murmurs, regular rate and rhythm. LUNGS: clear to auscultation bilaterally. ABDOMEN: soft, nontender. EXTREMITIES: no edema. PERIPHERAL PULSES: equal. NEUROLOGIC: No gross deficits, AAO X 3 Office Procedures EKG Details: Sinus rhythm 84 beats per minute, normal axis, low voltage, otherwise normal EKG, QTC 437 milliseconds. [id number], Complete Assessment & Plan Assessment & Plan (1) Hypertension: Code(s): I10 - Essential (primary) hypertension (2) Chest pain: Code(s): R07.9 - Chest pain, unspecified Plan Pleasant 72-year-old female who is here for follow-up. She previously had extensive workup including cardiac catheterization which did not show any significant coronary disease. Blood pressure control is good. She was advised to continue same medications. She is complaining of some chest pains at nighttime. These symptoms are not present to the day when she is doing activities. She has significant GI complaints in the past and I think these symptoms are due to esophagitis/gastroesophageal reflux disease. She should follow-up with GI. Thank you for allowing me to participate in the care of your patient. Please feel free to contact me if you have any questions. Coding Level of Care Code Est Pt Level 4 (42792) Diagnoses Hypertension I10 Chest pain R07.9 CPT Codes EKG - CPT: 89122-[id number], Complete ([id number])
[2023-01-30 13:07] VITALS: BP 122/66; PULSE 84; BMI 34.4
== END 2023-01-30 13:23 | disposition home or self-care (01) ==
PROVIDERS: Visit Provider Internal Medicine Cardiovascular Disease
DX: I10 Essential (primary) hypertension (principal); R07.9 Chest pain, unspecified
CPT/HCPCS: 93010; 99214

== ENCOUNTER → 2023-01-30 12:52 | Outpatient (BNVA) | payer MEDICARE, MEDICAID, SELFPAY | PROVIDERS: Visit Provider Internal Medicine Cardiovascular Disease | DX: I10 Essential (primary) hypertension (principal); R07.9 Chest pain, unspecified | CPT/HCPCS: 93005; 99212 ==

== ENCOUNTER 2023-03-13 11:14 | Outpatient (AMB) | payer MEDICARE, MEDICAID, SELFPAY ==
--- NOTE | 2023-03-13 11:20 | A.OFFPC_ITS ---
Vital Signs 03/13/23 11:21 Height 5 ft 4 in Weight 200 lb 8 oz BMI 34.4 BP 130/72 Blood Pressure Location Rt brachial Position Sitting Pulse 67 Pulse Source Pulse Oximeter Pulse Oximetry (%) 97 Oxygen Delivery Method Room Air Intake Visit Reasons: Rash on neck, diarrhea Intake Note: Patient is here today for rash on neck and diarrhea Quality Assurance Monitor Required: No Marketing Traffic Coordinator: Not Required per policy Accompanied by: Self / Same As Patient Allergies No Known Allergies [No Known Allergies*] Allergy (Verified 03/13/23 11:21) Tobacco use date assessed: 03/13/23 Fall risk assessment: No Falls in past year Last assessed Fall Risk: 03/13/23 Dental Screening Dental Screen Date: 03/13/23 Did you have a dental visit in the last 12 months?: No Did you have a dental problem in the last 6 months where you did not have access to dental care?: No Was dental information given to patient?: Patient has dentist HPI Rash on neck, diarrhea HPI Details rash on neck for a day PFS Medical History Schizophrenia Surgical History History of bladder surgery History of cardiac catheterization History of cataract surgery History of esophagogastroduodenoscopy (EGD) History of laparoscopic cholecystectomy History of throat surgery Hx of colonoscopy Family History Father Past heart attack Diabetes Mother Past heart attack Paternal Grandmother Stomach cancer Other Mental health disorder Social History Household Members: None Housing: Apartment Are you a primary healthcare management to a significant other at home: No Do you presently have visiting nurse or other home services: No Alcohol intake: never Patient Tobacco Use Status: Never used Tobacco e-Cigarette/Vaping Use: Never Used Second Hand Smoke Exposure: No service: No Current occupational status: disabled Cognitive needs: Yes (cane) Hearing needs: No Vision needs: No Questionnaire Thrive Questionnaire Date Thrive assessed: 01/04/23 JULIO-7 AMB Questionnaire JULIO-7 Date JULIO - 7 assessed: 01/04/23 Source: Developed by Poonam Hernandez B.W. Johny, Brennan Duran and colleagues, with an educational leah from [employer]. Review of Systems Const Denies chills, Denies headache(s) and Denies weight loss ENT Denies headache(s) Card Denies chest pain, Denies syncope, Denies irregular heart rhythm and Denies dyspnea Resp Denies chest congestion, Denies cough and Denies dyspnea GI Denies abdominal pain, Denies change in stool character, Denies nausea and Denies vomiting Musc Denies deformity and Denies joint swelling Neuro Denies syncope and Denies headache(s) Physical exam (Primary Care) Vital Signs: Last Vital Signs Pulse 67 03/13/23 11:21 BP 130/72 03/13/23 11:21 Pulse Ox 97 03/13/23 11:21 Oxygen Delivery Method Room Air 03/13/23 11:21 BMI result Body Mass Index 34.4 Tobacco/Smoking Status: Tobacco use Status Tobacco use date assessed 03/13/23 03/13/23 11:28 Patient Tobacco Use Status Never used Tobacco 03/13/23 11:28 e-Cigarette/Vaping Use Never Used 03/13/23 11:28 Thrive Assessment: Date of Thrive Assessment Date Thrive assessed 01/04/23 03/13/23 11:28 Const General: cooperative, comfortable and no acute distress HENMT Head: Yes normal to inspection Eyes General: appearance normal, both eyes and all related structures Neck Other: contact dermatitis Assessment and Plan Assessment & Plan (1) Contact dermatitis: Code(s): L25.9 - Unspecified contact dermatitis, unspecified cause Plan rx Medications: New triamcinolone acetonide 0.5% 1 appl topical TID 15 grams 3RF azithromycin take 500 mg today (day 1), then 250 mg for 4 days (days 2-5) PO 6 tabs 0RF Coding Level of Care Code Est Pt Level 3 (57467) Diagnoses Contact dermatitis L25.9
[2023-03-13 11:21] VITALS: BP 130/72; PULSE 67; O2SAT 97; BMI 34.4
== END 2023-03-13 11:32 | disposition home or self-care (01) ==
PROVIDERS: PCP Internal Medicine; Visit Provider Internal Medicine
DX: L25.9 Unspecified contact dermatitis, unspecified cause (principal)
CPT/HCPCS: 99213

== ENCOUNTER 2023-04-11 13:36 | Outpatient (AMB) | payer MEDICARE, MEDICAID, SELFPAY ==
[2023-04-11 13:39] VITALS: BP 136/72; PULSE 82; O2SAT 97; BMI 34.3
--- NOTE | 2023-04-11 13:39 | MHC.PC.OV ---
Vital Signs 04/11/23 13:39 Height 5 ft 4 in Weight 200 lb BMI 34.3 BP 136/72 Blood Pressure Location Lt brachial Position Sitting Pulse 82 Pulse Source Pulse Oximeter Pulse Oximetry (%) 97 Oxygen Delivery Method Room Air Intake Visit Reasons: 3 month f/u Winch Driver: Not Required per policy Accompanied by: Self / Same As Patient Allergies No Known Allergies [No Known Allergies*] Allergy (Verified 04/11/23 13:40) Medication List - Last Reconciled 04/11/23 by Ishmael Zhou MD amlodipine 5 mg PO DAILY azithromycin take 500 mg today (day 1), then 250 mg for 4 days (days 2-5) PO bupropion HCl 300 mg PO DAILY carbamazepine 200 mg PO TID citalopram 20 mg PO DAILY diaper,brief,adult,disposable ([place] Choice Comfort Protect Adult Diaper X-Large) As directed ferrous sulfate 325 mg PO DAILY ibuprofen 800 mg PO TID olanzapine 7.5 mg PO DAILY omeprazole 40 mg PO DAILY oxycodone 5 mg PO Q4H PRN [pull ups twice per day as needed] sulfamethoxazole-trimethoprim 800-160 mg (Bactrim DS) 1 tab PO BID trazodone 50 mg PO BEDTIME PRN triamcinolone acetonide 0.5% 1 appl topical TID Tobacco use date assessed: 03/13/23 Fall risk assessment: No Falls in past year Last assessed Fall Risk: 04/11/23 Dental Screening Dental Screen Date: 04/11/23 Did you have a dental visit in the last 12 months?: No Did you have a dental problem in the last 6 months where you did not have access to dental care?: No Was dental information given to patient?: Patient has dentist HPI 3 month f/u HPI Details uti symptoms; had a urine with pyuria [facility] Medical History Schizophrenia Surgical History History of esophagogastroduodenoscopy (EGD) Hx of colonoscopy History of laparoscopic cholecystectomy History of cardiac catheterization History of cataract surgery History of throat surgery History of bladder surgery Family History Father Past heart attack Diabetes Mother Past heart attack Paternal Grandmother Stomach cancer Other Mental health disorder Social History Household Members: None Housing: Apartment Are you a primary lead care manager to a significant other at home: No Do you presently have visiting nurse or other home services: No Alcohol intake: never Patient Tobacco Use Status: Never used Tobacco e-Cigarette/Vaping Use: Never Used Second Hand Smoke Exposure: No service: No Current occupational status: disabled Cognitive needs: Yes (cane) Hearing needs: No Vision needs: No Questionnaire PHQ-9 Over the last 2 weeks, how often have you been bothered by any of the following problems? 1. Little interest or pleasure in doing things: not at all 2. Feeling down, depressed, or hopeless: not at all 3. Trouble falling or staying asleep, or sleeping too much: not at all 4. Feeling tired or having little energy: not at all 5. Poor appetite or overeating: not at all 6. Feeling bad about yourself - or that you are a failure or have let yourself or your family down: not at all 7. Trouble concentrating on things, such as reading the newspaper or watching television: not at all 8. Moving or speaking so slowly that other people could have noticed. Or the opposite - being so fidgety or restless that you have been moving around a lot more than usual: not at all 9. Thoughts that you would be better off or of hurting yourself in some way: not at all Total score: 0 Depression Screening Interpretation: Negative Source: Developed by Drs. Jean Marie Granda, Brennan Cruz and colleagues, with an educational leah from [employer]. Thrive Questionnaire Date Thrive assessed: 01/04/23 AUDIT C Alcohol Use Questionnaire (AUDIT-C) 1. How often do you have a drink containing alcohol?: Never Total Score: 0 Score Reviewed/Action Taken: Yes JULIO-7 AMB Questionnaire JULIO-7 Date JULIO - 7 assessed: 01/04/23 Source: Developed by Drs. Jean Marie Granda, Poonam Mcclain, Brennan Duran and colleagues, with an educational leah from [employer]. Review of Systems Const Denies chills, Denies headache(s) and Denies weight loss ENT Denies headache(s) Card Denies chest pain, Denies syncope, Denies irregular heart rhythm and Denies dyspnea Resp Denies chest congestion, Denies cough and Denies dyspnea GI Denies abdominal pain, Denies change in stool character, Denies nausea and Denies vomiting Musc Denies deformity and Denies joint swelling Neuro Denies syncope and Denies headache(s) Physical exam (Primary Care) Vital Signs: Last Vital Signs Pulse 82 04/11/23 13:39 BP 136/72 04/11/23 13:39 Pulse Ox 97 04/11/23 13:39 Oxygen Delivery Method Room Air 04/11/23 13:39 BMI result Body Mass Index 34.3 Tobacco/Smoking Status: Tobacco use Status Tobacco use date assessed 03/13/23 04/11/23 13:40 Patient Tobacco Use Status Never used Tobacco 04/11/23 13:40 e-Cigarette/Vaping Use Never Used 04/11/23 13:40 PHQ-9: PHQ-9 Score PHQ-9: Total score 0 04/11/23 13:47 Depression Screening Interpretation: Negative Thrive Assessment: Date of Thrive Assessment Date Thrive assessed 01/04/23 04/11/23 13:40 Const General: cooperative, comfortable, no acute distress and alert Neck Neck: Yes no lymphadenopathy Thyroid: Thyroid normal Resp Effort & Inspection: normal respiratory effort Auscultation: clear to auscultation bilaterally Percussion: percussion normal Cardio Jugular venous distension: no JVD Palpation: normal PMI Rate: regular rate Rhythm: regular rhythm Heart sounds: S1 normal heart sound present and S2 normal heart sound present GI Inspection: Yes normal to inspection Palpation (GI): No hepatosplenomegaly present Skin General skin exam: no rashes or lesions noted Extrem General: Yes no clubbing, cyanosis or edema Assessment and Plan Assessment & Plan (1) UTI (urinary tract infection): Code(s): N39.0 - Urinary tract infection, site not specified Plan: rx sent Medications: New sulfamethoxazole-trimethoprim 800-160 mg (Bactrim DS) 1 tab PO BID 10 tabs 0RF Coding Level of Care Code Est Pt Level 3 (35454) Diagnoses UTI (urinary tract infection) N39.0
== END 2023-04-11 14:40 | disposition home or self-care (01) ==
PROVIDERS: PCP Internal Medicine; Visit Provider Internal Medicine
DX: N39.0 Urinary tract infection, site not specified (principal)
CPT/HCPCS: 99213

== ENCOUNTER 2023-06-05 12:14 | Outpatient (AMB) | payer MEDICARE, MEDICAID, SELFPAY ==
--- NOTE | 2023-06-05 12:38 | A.OFFVIS_ITS ---
Intake Vital Signs 06/05/23 12:39 Height 5 ft 4 in Weight 198 lb 6.656 oz BMI 34.1 BP 130/80 Blood Pressure Location Lt brachial Position Sitting Pulse 72 Intake Visit Reasons: 4 mth f/up Intake Note: 4 month follow-up feeling ok has been out of med's for about 10 days Institutional Research Director Required: No Allergies No Known Allergies [No Known Allergies*] Allergy (Verified 05/02/23 15:30) Medication List - Last Reconciled 06/05/23 by Trell Key MD amlodipine 5 mg PO DAILY bupropion HCl 300 mg PO DAILY carbamazepine 200 mg PO TID citalopram 20 mg PO DAILY diaper,brief,adult,disposable ([place] Choice Comfort Protect Adult Diaper X- Large) As directed ferrous sulfate 325 mg PO DAILY olanzapine 7.5 mg PO DAILY omeprazole 40 mg PO DAILY [pull ups twice per day as needed] triamcinolone acetonide 0.5% 1 appl topical TID HPI HPI Comments History of Present Illness Details 72-year-old female who is here follow-up . She has background history of dyspnea. She had anemia in the past which has been stable mostly. She also had coronary angiography for dyspnea on exertion which was unremarkable. She is returning and is complaining of fatigue and shortness of breath. She is quite sedentary at this stage and does not exercise regularly. Denying any other symptoms in particular no chest discomfort. Taking medications regularly and tolerating them well. Blood pressure control is good. 01/30/23: She returns for follow-up. Junior rg has been experiencing some pressure- like feeling at nighttime. His last for hours and does not happen during the day. She has significant issues with previous esophageal stricture as well as he has esophagitis. She has acid reflux. She is denying any chest discomfort shortness of breath with activity. 06/05/2023: She returns for follow-up. She has no chest pain or shortness of breath. She has run out of her amlodipine and has not been taking it for few weeks. Blood pressure continues to be good. We will send a script for her. She said she was in the emergency department with lower back pain. [facility] Medical History Schizophrenia Surgical History History of esophagogastroduodenoscopy (EGD) Hx of colonoscopy History of laparoscopic cholecystectomy History of cardiac catheterization History of cataract surgery History of throat surgery History of bladder surgery Family History Father Past heart attack Diabetes Mother Past heart attack Paternal Grandmother Stomach cancer Other Mental health disorder Social History Household Members: None Housing: Apartment Are you a primary critical care physician to a significant other at home: No Do you presently have visiting nurse or other home services: No Alcohol intake: never Patient Tobacco Use Status: Never used Tobacco e-Cigarette/Vaping Use: Never Used Second Hand Smoke Exposure: No service: No Current occupational status: disabled Cognitive needs: Yes (cane) Hearing needs: No Vision needs: No Review of Systems Const Denies chills, Denies fatigue, Denies fever(s), Denies frequent falls, Denies weakness, Denies weight gain and Denies weight loss ENT Denies dizziness Card Denies chest pain, Denies leg edema, Denies lightheadedness, Denies palpitations, Denies dyspnea, Denies dyspnea on exertion, Denies orthopnea and Denies other (loss of consciousness) Resp Denies cough, Denies dyspnea and Denies dyspnea on exertion GI Denies hematochezia and Denies change in stool character Musc Denies abnormal gait, Denies muscle weakness, Denies numbness, Denies radiating pain into limb and Denies tingling Neuro Denies abnormal gait, Denies dizziness, Denies frequent falls, Denies numbness, Denies tingling and Denies weakness Endo Denies fatigue and Denies palpitations Physical Exam Vital Signs: Last Vital Signs Pulse 72 06/05/23 12:39 BP 130/80 06/05/23 12:39 BMI result Body Mass Index 34.1 GENERAL APPEARANCE: in no acute distress, pleasant. NECK: no carotid bruit, no jugular venous distention. SKIN: no suspicious lesions, warm and dry. HEART: no murmurs, regular rate and rhythm. LUNGS: clear to auscultation bilaterally. ABDOMEN: soft, nontender. EXTREMITIES: no edema. PERIPHERAL PULSES: equal. NEUROLOGIC: No gross deficits, AAO X 3 Assessment & Plan Assessment & Plan (1) Hypertension: Code(s): I10 - Essential (primary) hypertension Plan Pleasant 72-year-old female who is here for follow-up. She has background of hypertension. Blood pressure control is good. She ran out of her amlodipine and has not been taking it for few weeks. Will send scripts for her. She will see us back in 6 months. Thank you for allowing me to participate in the care of your patient. Please feel free to contact me if you have any questions. Medications: Refilled amlodipine 5 mg PO DAILY 90 tabs 3RF I10 - Essential (primary) hypertension Coding Level of Care Code Est Pt Level 3 (44606) Diagnoses Hypertension I10
[2023-06-05 12:39] VITALS: BP 130/80; PULSE 72; BMI 34.1
== END 2023-06-05 12:59 | disposition home or self-care (01) ==
PROVIDERS: PCP Internal Medicine; Visit Provider Internal Medicine Cardiovascular Disease
DX: I10 Essential (primary) hypertension (principal)
CPT/HCPCS: 99213

== ENCOUNTER → 2023-06-05 12:14 | Outpatient (BNVA) | payer MEDICARE, MEDICAID, SELFPAY | PROVIDERS: PCP Internal Medicine; Visit Provider Internal Medicine Cardiovascular Disease | DX: I10 Essential (primary) hypertension (principal) | CPT/HCPCS: 99212 ==

== ENCOUNTER 2023-06-25 12:35 | Outpatient (REF) | payer MEDICARE, MEDICAID, SELFPAY ==
[2023-06-25 13:12] LABS: MANUAL DIFF FLAG NO
[2023-06-25 13:44] LABS: Basophils Absolute Auto 0.1 X10*3/uL (0.0-0.2); Eosinophils Absolute Auto 0.3 X10*3/uL (0.0-0.4); Eosinophils Percent Auto 4.4 % (0-4); Hematocrit 40.2 % (37.0-47.0); Hemoglobin 12.9 g/dl (12.0-16.0); Imm Gran Abs Auto 0.03 X10*3/uL (0.00-0.03); Imm Gran Pct Auto 0.4 % (0.0-0.4); Lymphocytes Absolute Auto 1.4 X10*3/uL (1.2-4.9); Lymphocytes Percent Auto 18.6 % (20-40); Mean Corpuscular HGB Conc 32.1 g/dl (31.0-35.0); Mean Corpuscular Volume 90.3 fL (80.0-98.0); Monocytes Absolute Auto 0.4 X10*3/uL (0.1-1.2); Monocytes Percent Auto 5.4 % (2-11); Neutrophils Absolute Auto 5.1 x10*3/uL (2.0-8.3); Neutrophils Percent Auto 70.2 % (45-73); Platelet Count 271 X10*3/uL (160-400); Red Blood Count 4.45 X10*6/uL (4.20-5.50); Red Cell Distribution Width 13.2 % (11.0-16.0); White Blood Count 7.2 X10*3/uL (4.8-10.8)
[2023-06-25 13:53] LABS: Estimated Average Glucose 123 mg/dL; Hemoglobin A1c % 5.9 % (<6.0)
[2023-06-25 14:46] LABS: Alanine Aminotransferase 19 U/L (0-31); Alkaline Phosphatase 63 U/L (39-117); Anion Gap 14 (12-20); Aspartate Amino Transferase 19 U/L (5-31); Bilirubin Total 0.3 mg/dL (0.0-1.0); Blood Urea Nitrogen 15 mg/dL (9-16); Calcium 9.2 mg/dL (8.4-10.2); Carbon Dioxide 24 mmol/L (22-29); Chloride 105 mmol/L (96-108); Cholesterol 161 mg/dL (<200); Estimated Glomerular Filt Rate 59; Glucose Random 172 mg/dL (60-115); HDL Cholesterol 49 mg/dL (>40); LDL Cholesterol Calculated 84 mg/dL (<100); Potassium 4.3 mmol/L (3.3-5.1); Sodium 139 mmol/L (135-145); Thyroid Stimulating Hormone 3.28 uIU/mL (0.32-4.0); Triglycerides 143 mg/dL (<150)
== END 2023-06-25 12:36 | disposition home or self-care (01) ==
LOC: HO.LAB 12:35
PROVIDERS: PCP Internal Medicine; Visit Provider Nurse Practitioner Psychiatric/Mental Health
DX: Z79.899 Other long term (current) drug therapy (principal)
CPT/HCPCS: 36415; 80053; 80061; 83036; 84443; 85025

== ENCOUNTER 2023-12-03 12:51 | Outpatient (AMB) | payer MEDICARE, SELFPAY ==
--- NOTE | 2023-12-03 12:54 | MHC.OFFVIS ---
Vital Signs 12/03/23 12:55 Height 5 ft 4 in Weight 196 lb 3.382 oz BMI 33.7 BP 114/68 Blood Pressure Location Lt brachial Position Sitting Pulse 78 Pulse Source Pulse Oximeter Pulse Oximetry (%) 98 Oxygen Delivery Method Room Air Intake Visit Reasons: 6 mth f/up Allergies No Known Allergies [No Known Allergies*] Allergy (Verified 11/15/23 14:49) Medication List - Last Reconciled 12/03/23 by Flaca Tinajero NP amlodipine 5 mg PO DAILY bupropion HCl XL 300 mg PO DAILY carbamazepine 200 mg PO TID citalopram 20 mg PO DAILY cyanocobalamin (vitamin B-12) 1,000 mcg sublingual DAILY diaper,brief,adult,disposable ([place] Choice Comfort Protect Adult Diaper X-Large) As directed ferrous sulfate 325 mg PO DAILY olanzapine 7.5 mg PO DAILY omeprazole 40 mg PO DAILY [pull ups twice per day as needed] HPI Comments Details: 73-year-old female who is here follow-up. She has a history of hypertension, obesity, anemia, and dyspnea. She reports she has been doing well. She states her breathing has gotten better. She denies any chest pains, fatigue, swelling, or orthopnea. She reports she is pretty sedentary. [facility] Medical History Schizophrenia Surgical History History of esophagogastroduodenoscopy (EGD) Hx of colonoscopy History of laparoscopic cholecystectomy History of cardiac catheterization History of cataract surgery History of throat surgery History of bladder surgery Family History Father Past heart attack Diabetes Mother Past heart attack Paternal Grandmother Stomach cancer Other Mental health disorder Social History Household Members: None Housing: Apartment Are you a primary home day care provider to a significant other at home: No Do you presently have visiting nurse or other home services: No Alcohol intake: never Patient Tobacco Use Status: Never used Tobacco e-Cigarette/Vaping Use: Never Used Second Hand Smoke Exposure: No service: No Current occupational status: disabled Cognitive needs: Yes (cane) Hearing needs: No Vision needs: No Review of Systems Const Denies weakness ENT Denies dizziness Card Denies chest pain, Denies chest pain with activity, Denies syncope, Denies rapid heart rate, Denies pedal edema, Denies edema, Denies leg edema, Denies lightheadedness, Denies palpitations, Denies dyspnea, Denies dyspnea on exertion and Denies orthopnea Resp Denies cough, Denies dyspnea and Denies dyspnea on exertion GI Denies hematochezia and Denies change in stool character Musc Denies abnormal gait, Denies muscle cramps, Denies muscle weakness, Denies numbness, Denies radiating pain into limb and Denies tingling Neuro Denies abnormal gait, Denies dizziness, Denies syncope, Denies numbness, Denies tingling and Denies weakness Endo Denies palpitations Physical Exam Vital Signs: Last Vital Signs Pulse 78 12/03/23 12:55 BP 114/68 12/03/23 12:55 Pulse Ox 98 12/03/23 12:55 Oxygen Delivery Method Room Air 12/03/23 12:55 BMI result Body Mass Index 33.7 Const General: healthy appearing and no acute distress Orientation/consciousness: patient oriented x3 HEENT Head: Yes normal to inspection Eyes General: appearance normal, both eyes and all related structures Neck Neck: Yes normal visual inspection Chest Chest palpation & inspection: normal inspection of the chest Resp Effort & Inspection: normal respiratory effort Auscultation: clear to auscultation bilaterally Cardio Jugular venous distension: no JVD Palpation: normal PMI Rate: regular rate Rhythm: regular rhythm Heart sounds: S1 normal heart sound present, S2 normal heart sound present, no click, no gallops, no murmurs and no rubs GI Inspection: Yes normal to inspection Palpation (GI): Soft to palpation Skin General skin exam: no rashes or lesions noted Neuro General: patient oriented x3 Extrem General: Yes normal to inspection Psych Appearance: grossly normal Assessment & Plan Assessment & Plan (1) Hypertension: Code(s): I10 - Essential (primary) hypertension Category: Medical (2) Dyspnea: Comment: Stable Code(s): R06.00 - Dyspnea, unspecified Category: Medical Plan Blood pressure within range today. On amlodipine 5mg QD. Tolerating well. Patient checks periodically at home. Asked to bring log to next appointment. Shortness of breath has slightly improved. Coding Level of Care Code Est Pt Level 3 (34972) Diagnoses Hypertension I10 Dyspnea R06.00
[2023-12-03 12:55] VITALS: BP 114/68; PULSE 78; O2SAT 98; BMI 33.7
== END 2023-12-03 13:11 | disposition home or self-care (01) ==
PROVIDERS: PCP Internal Medicine; Visit Provider Nurse Practitioner
DX: I10 Essential (primary) hypertension (principal); R06.00 Dyspnea, unspecified
CPT/HCPCS: 99213

== ENCOUNTER → 2023-12-03 12:51 | Outpatient (BNVA) | payer MEDICARE, MEDICAID, SELFPAY | PROVIDERS: PCP Internal Medicine; Visit Provider Nurse Practitioner | DX: I10 Essential (primary) hypertension (principal); R06.00 Dyspnea, unspecified; Z79.899 Other long term (current) drug therapy | CPT/HCPCS: 99212 ==

== ENCOUNTER → 2023-12-10 14:30 | Outpatient (BNV) | payer MEDICARE, SELFPAY | PROVIDERS: PCP Internal Medicine; Visit Provider Radiology Diagnostic Radiology | DX: Z12.31 Encounter for screening mammogram for malignant neoplasm of breast (principal) | CPT/HCPCS: 77063; 77067 ==

== ENCOUNTER 2023-12-10 14:31 | Outpatient (REF) | payer MEDICARE, SELFPAY | END 2023-12-10 14:32 | disposition home or self-care (01) | LOC: HO.MAMMO 14:31 | PROVIDERS: PCP Internal Medicine; Visit Provider Internal Medicine | DX: Z12.31 Encounter for screening mammogram for malignant neoplasm of breast (principal) | CPT/HCPCS: 77063; 77067 ==

== ENCOUNTER 2024-01-07 12:43 | Outpatient (AMB) | payer MEDICARE, MEDICAID, SELFPAY ==
[2024-01-07 12:52] VITALS: BP 150/68; PULSE 83; O2SAT 97; BMI 33.6
--- NOTE | 2024-01-07 12:52 | A.OFFVIS_ITS ---
Intake Vital Signs 01/07/24 12:52 Height 5 ft 4 in Weight 196 lb BMI 33.6 BP 150/68 H Blood Pressure Location Lt brachial Position Sitting Pulse 83 Pulse Source Pulse Oximeter Pulse Oximetry (%) 97 Oxygen Delivery Method Room Air Intake Visit Reasons: Medicare Wellness Allergies No Known Allergies [No Known Allergies*] Allergy (Verified 11/15/23 14:49) HPI Medicare Wellness HPI Details HTN; stable PFSH Medical History Schizophrenia Surgical History History of esophagogastroduodenoscopy (EGD) Hx of colonoscopy History of laparoscopic cholecystectomy History of cardiac catheterization History of cataract surgery History of throat surgery History of bladder surgery Family History Father Past heart attack Diabetes Mother Past heart attack Paternal Grandmother Stomach cancer Other Mental health disorder Social History Household Members: None Housing: Apartment Are you a primary patient care to a significant other at home: No Do you presently have visiting nurse or other home services: No Alcohol intake: never Patient Tobacco Use Status: Never used Tobacco e-Cigarette/Vaping Use: Never Used Second Hand Smoke Exposure: No Use of substances other than those prescribed or required for medical reasons: No Have you been hit, kicked, punched, or otherwise hurt by someone within the past year? If so, by whom?: No Do you feel safe in your current relationship?: Yes Is there a partner from a previous relationship who is making you feel unsafe now?: No Advance Directives: No Advance Directives Information Provided: Yes Do you have a plan to hurt others: No Plan Do you have the means to hurt others: No Patient : No service: No Current occupational status: disabled Cognitive needs: Yes (cane) Hearing needs: No Vision needs: No Questionnaire Medicare Wellness Checkup [age] What gender do you identify with?: female During the past 4 weeks, how much have you been bothered by emotional problems such as feeling anxious, depressed, irritable, sad or downhearted, and blue?: slightly During the past 4 weeks, has your physical & emotional health limited your social activities with family, friends, neighbors, or groups?: not at all During the past 4 weeks, how much bodily pain have you generally had?: mild pain During the past 4 weeks, was someone available to help you if you needed & wanted help?: yes, as much as I wanted During the past 4 weeks, what was the hardest physical activity you could do for at least 2 minutes?: moderate Can you get to places out of walking distance without help? (For eg., can you travel alone on buses, taxis or drive your car?): Yes Can you go shopping for groceries or clothes without someone's help?: Yes Can you prepare your own meals?: Yes Can you do your housework without help?: Yes Because of any health problems, do you need the help of another person with your personal care needs such as eating, bathing, dressing or getting around the house?: No Can you handle your own money without help?: Yes During the past 4 weeks, how would you rate your health in general?: fair During the past 4 weeks how have things been going for you?: very well; could hardly better Are you having difficulties driving your car?: no Do you always fasten your seat belt when you are in a car?: yes, sometimes During past 4 weeks, have you been bothered by the following: never: Falling or dizzy when standing up, Trouble eating well? and Problems using the telephone? and always: Sexual problems?, Teeth or denture problems? and Tiredness or fatigue? Have you fallen 2 or more times in the past year?: No Are you afraid of falling?: No Are you a smoker?: no During the past 4 weeks, how many drinks of wine, beer, or other alcoholic beverages did you have?: no alcohol at all Do you exercise for about 20 minutes 3 or more times a week?: no, I usually do not exercise this much Have you been given information to help with the following?: no: Hazards in your house that might hurt you? and no: Keeping track of your medications? How often do you have trouble taking medicines the way you have been told to take them?: I always take medicine as prescribed How confident are you that you can control & manage most of your health problems?: very confident What is your race?: White Mini Mental State Exam (MMSE) Orientation What is the (year) (season) (date) (day) (month)?: year, season and date Where are we (state) (county) (town or city) (hospital) (floor)?: state, county and town or city Registration Name of 3 unrelated objects clearly and slowly, then ask patient to repeat all 3 of them. (1st repeat determines score. Make sure they can repeat all three): object 1, object 2 and object 3 Attention & Calculation (CHOOSE ONE) Ask pt to begin with 100 & count backward by 7. Stop after 5 repeats. If pt cannot ask them to spell the word WORLD backward.: 93 Spell WORLD backwards (DLROW): 5 letters Recall Ask patient to repeat the 3 items from question #3.: object 1 Score Score: 16 Activity of Daily Living Bathing - sponge bath, tub bath or shower: receives no assistance (gets in/out by self, if usual bathing means Dressing - getting clothes from closets & drawers, including inner/outer garments & fasteners.: gets clothes & gets completely dressed without help Toileting - going to the 'toilet room' for urine/bowel elimination & cleaning self/arranging clothes: goes to toilet room, cleans self, arranges clothes without help Transfer: moves in & out of bed and chair without help (may use support object) Continence: controls urination/bowel movements completely by self Feeding: feeds self without help Total Score: 0 Information obtained from: patient Using telephone: independent Traveling: independent Shopping: independent Preparing meals: independent Housework: independent Taking medicine: independent Managing money: independent PHQ-9 Over the last 2 weeks, how often have you been bothered by any of the following problems? 1. Little interest or pleasure in doing things: not at all 2. Feeling down, depressed, or hopeless: not at all 3. Trouble falling or staying asleep, or sleeping too much: not at all 4. Feeling tired or having little energy: not at all 5. Poor appetite or overeating: not at all 6. Feeling bad about yourself - or that you are a failure or have let yourself or your family down: not at all 7. Trouble concentrating on things, such as reading the newspaper or watching television: not at all 8. Moving or speaking so slowly that other people could have noticed. Or the opposite - being so fidgety or restless that you have been moving around a lot more than usual: not at all 9. Thoughts that you would be better off or of hurting yourself in some way: not at all Total score: 0 Depression Screening Interpretation: Negative Depression Screening Done: Yes 34291 - PHQ-9 Billing: Yes Source: Developed by Drs. Jean Marie Granda, Poonam Mcclain, Brennan Duran and colleagues, with an educational leah from [employer]. Review of Systems Const Denies chills, Denies fatigue, Denies headache(s) and Denies weight loss Eyes Denies change in vision, Denies diplopia and Denies eye pain ENT Reports Normal hearing present, Denies vertigo, Denies dizziness, Denies headache(s) and Denies nasal discharge Card Denies chest pain, Denies rapid heart rate and Denies dyspnea on exertion Resp Denies chest congestion, Denies cough, Denies pain with cough and Denies dyspnea on exertion GI Denies abdominal pain, Denies hematochezia and Denies change in bowel habits Musc Denies myalgias, Denies arthralgias and Denies joint swelling Skin/Breast Denies lesions and Denies unusual bruising Neuro Reports Normal hearing present, Denies vertigo, Denies dizziness, Denies headache(s) and Denies focal weakness Endo Denies fatigue Physical Exam Vital Signs: Last Vital Signs Pulse 83 01/07/24 12:52 BP 150/68 H 01/07/24 12:52 Pulse Ox 97 01/07/24 12:52 Oxygen Delivery Method Room Air 01/07/24 12:52 BMI result Body Mass Index 33.6 Neuro Cranial nerves: Yes Normal hearing present Assessment & Plan Assessment & Plan (1) Encounter for initial annual wellness visit (AWV) in Medicare patient: Code(s): Z00.00 - Encounter for general adult medical examination without abnormal findings Plan: rhomberg and whisper tests nl (2) Hypertension: Code(s): I10 - Essential (primary) hypertension Plan: stable; same rx Orders: Orders Lipid Panel Today Z13.220 - Encounter for screening for lipoid disorders Complete Blood Count Auto Diff Today Z13.0 - Encounter for screening for diseases of the blood and blood-forming organs and certain disorders involving the immune mechanism Thyroid Stimulating Hormone Today Z13.29 - Encounter for screening for other suspected endocrine disorder Comprehensive [place]. Panel Fast Today Z13.9 - Encounter for screening, unspecified Quality Reporting (2019) Depression/Bipolar (159/160/161/177) PHQ-9: Total score: 0 Coding Level of Care Code Medicare First (G0438) Diagnoses Encounter for initial annual wellness visit (AWV) in Medicare patient Z00.00 Hypertension I10 CPT Codes Advance Care Planning - Advance Care Planning discussion: On file, no changes ([id number]) Advance Care Planning - Time spent: 1-15 minutes, on File ([id number]) Advance Care Planning Advance Care Planning discussion: On file, no changes Forms completed: Health Care Proxy Time spent: 1-15 minutes, on File
== END 2024-01-07 13:11 | disposition home or self-care (01) ==
PROVIDERS: PCP Internal Medicine; Visit Provider Internal Medicine
DX: Z00.00 Encounter for general adult medical examination without abnormal findings (principal); I10 Essential (primary) hypertension
CPT/HCPCS: 1123F; G0438

== ENCOUNTER 2024-01-14 13:38 | Outpatient (REF) | payer MEDICARE, MEDICAID, SELFPAY ==
[2024-01-14 14:11] LABS: MANUAL DIFF FLAG NO
[2024-01-14 14:38] LABS: Basophils Absolute Auto 0.1 X10*3/uL (0.0-0.2); Basophils Percent Auto 0.6 % (0-2); Eosinophils Absolute Auto 0.2 X10*3/uL (0.0-0.4); Eosinophils Percent Auto 1.9 % (0-4); Hematocrit 39.9 % (37.0-47.0); Hemoglobin 13.2 g/dl (12.0-16.0); Imm Gran Abs Auto 0.03 X10*3/uL (0.00-0.03); Imm Gran Pct Auto 0.3 % (0.0-0.4); Lymphocytes Absolute Auto 1.3 X10*3/uL (1.2-4.9); Lymphocytes Percent Auto 15.2 % (20-40); Mean Corpuscular HGB Conc 33.1 g/dl (31.0-35.0); Mean Corpuscular Hemoglobin 28.1 pg (27.0-33.0); Mean Corpuscular Volume 84.9 fL (80.0-98.0); Monocytes Absolute Auto 0.7 X10*3/uL (0.1-1.2); Monocytes Percent Auto 7.8 % (2-11); Neutrophils Absolute Auto 6.5 x10*3/uL (2.0-8.3); Neutrophils Percent Auto 74.2 % (45-73); Platelet Count 282 X10*3/uL (160-400); White Blood Count 8.7 X10*3/uL (4.8-10.8)
[2024-01-14 15:08] LABS: Alanine Aminotransferase 20 U/L (0-31); Alkaline Phosphatase 77 U/L (39-117); Anion Gap 13 (12-20); Aspartate Amino Transferase 20 U/L (5-31); Bilirubin Total 0.2 mg/dL (0.0-1.0); Blood Urea Nitrogen 16 mg/dL (9-16); Calcium 9.7 mg/dL (8.4-10.2); Carbon Dioxide 26 mmol/L (22-29); Chloride 107 mmol/L (96-108); Cholesterol 176 mg/dL (<200); Estimated Glomerular Filt Rate > 60; Glucose Fasting 125 mg/dL (60-99); HDL Cholesterol 48 mg/dL (>40); LDL Cholesterol Calculated 92 mg/dL (<100); Sodium 142 mmol/L (135-145); Total Protein 7.1 g/dL (6.5-8.0); Triglycerides 184 mg/dL (<150)
[2024-01-14 15:28] LABS: Thyroid Stimulating Hormone 2.19 uIU/mL (0.32-4.0)
== END 2024-01-14 13:39 | disposition home or self-care (01) ==
LOC: HO.LAB 13:38
PROVIDERS: PCP Internal Medicine; Visit Provider Internal Medicine
DX: Z13.0 Encounter for screening for diseases of the blood and blood-forming organs and certain disorders involving the immune mechanism (principal); Z13.220 Encounter for screening for lipoid disorders; Z13.29 Encounter for screening for other suspected endocrine disorder; Z13.9 Encounter for screening, unspecified
CPT/HCPCS: 36415; 80053; 80061; 84443; 85025

== ENCOUNTER 2024-01-21 12:47 | Outpatient (AMB) | payer MEDICARE, MEDICAID, SELFPAY ==
--- NOTE | 2024-01-21 13:09 | A.OFFVIS_ITS ---
Vital Signs 01/21/24 13:17 Height 5 ft 4 in Weight 196 lb BMI 33.6 BP 137/65 Blood Pressure Location Rt brachial Position Sitting Pulse 76 Intake Visit Reasons: pt req appointment Intake Note: Lindsay presents to in office visit today in follow up of GERD and CIC. CC: Patient reports having jaw pain and taking medications for it but she still having pain. She also states that she believe that she is starting to have kidney failure. She also states that she noticed in her chart that it says family history of colon cancer but she does not have any family history of colon cancer. Patient also reports diarrhea. She reports recently having labs done here at [facility]. Mechanical Insulator Required: No Accompanied by: Self / Same As Patient Allergies No Known Allergies [No Known Allergies*] Allergy (Verified 01/21/24 13:23) HPI HPI pt req appointment: Details: Assessment & Plan (1) GERD (gastroesophageal reflux disease): ?Code(s): K21.9 - Gastro-esophageal reflux disease without esophagitis ?Plan: She is here today with her son who is supportive. She continues to complain about pain in her left upper job which she says is from an old dental procedure.? While I have no real insight into this I did suggest that if a thorough workup has not found a diagnosis she may want to consider pain management for possible nerve block.? She continues to do well on her omeprazole 40 mg twice a day for her heartburn and has call Colthaddeus to use p.r.n. for constipation.? Return office visit in 6 months for chronic management (2) Chronic idiopathic constipation: ?Code(s): K59.04 - Chronic idiopathic constipation (3) Erosive esophagitis: ?Comment: With dilation erosive esophagitis in 2018-[place] ?Code(s): K22.10 - Ulcer of esophagus without bleeding ? ? ? Medications: Changed From omeprazole 40 mg? PO DAILY K22.10 - Ulcer of esopha debbie without bleeding ? To omeprazole 40 mg? PO BID 30 caps 6RF K22.10 - Ulcer of esophagus without bleeding ? Laboratory Tests 01/14/24 14:09 WBC 8.7 Hgb 13.2 Hct 39.9 Plt Count 282 Estimated GFR > 60 Total Bilirubin 0.2 AST 20 ALT 20 Alkaline Phosphatase 77 TSH 2.19 TODAY'S VISIT Her swallowing has been good. She has severe jaw pain limiting her chewing and no top teeth now. She is having trouble with nocturnal diarrhea, and in the past she managed this well with fiber which she has fallen off of taking. I suggest she restart this and if this does not resolve it makes sense to have her follow up with Dr. Peña office since they do her colonoscopies and colon management. She says she does not have a FHX of crc in father, and I can't see where this was obtained in the chart so we will remove it. She says that Dr. George says she should have a 10 year follow up. KENNEDY dahln. [facility] Medical History (Updated 01/21/24 @ 14:02 by JOSE Mackenzie) Encounter for initial annual wellness visit (AWV) in Medicare patient Schizophrenia Surgical History History of esophagogastroduodenoscopy (EGD) Hx of colonoscopy History of laparoscopic cholecystectomy History of cardiac catheterization History of cataract surgery History of throat surgery History of bladder surgery Family History Father Past heart attack Diabetes Mother Past heart attack Paternal Grandmother Stomach cancer Other Mental health disorder Social History Household Members: None Housing: Apartment Are you a primary health care administrator to a significant other at home: No Do you presently have visiting nurse or other home services: No Alcohol intake: never Patient Tobacco Use Status: Never used Tobacco e-Cigarette/Vaping Use: Never Used Second Hand Smoke Exposure: No service: No Current occupational status: disabled Cognitive needs: Yes (cane) Hearing needs: No Vision needs: No Review of Systems Const Denies fatigue, Denies fever(s), Denies night sweats, Denies poor appetite and Denies weight loss ENT Reports Normal hearing present, Denies dental pain, Denies dysphagia, Denies hearing loss, Denies mouth pain, Denies odynophagia, Denies throat swelling, Denies tongue swelling and Reports other (Dentition adequate) Card Reports no additional complaints Resp Reports no additional complaints GI Details: Denies abdominal pain, Denies melena, Denies bloating, Denies hematochezia, Denies constipation, Denies GI cramping, Denies dysphagia, Denies excessive fl atus, Denies early satiety, Reports heartburn, Reports diarrhea, Denies nausea, Denies odynophagia, Denies vomiting and Denies hematemesis Skin/Breast Denies pruritus, Denies lesions, Denies rash and Denies jaundice Neuro Reports Normal hearing present and Denies Abnormal speech present Endo Denies fatigue Aller/Immun Denies throat swelling and Denies tongue swelling Physical Exam Vital Signs: Last Vital Signs Pulse 76 01/21/24 13:17 BP 137/65 01/21/24 13:17 BMI result Body Mass Index 33.6 Const General: cooperative, no acute distress, well developed and well groomed Nutritional Appearance: well nourished and obese Orientation/consciousness: oriented to person, oriented to place and oriented to time Limitations: No language barrier HEENT Head: Yes normocephalic and Yes atraumatic Eyes General: appearance normal, both eyes and all related structures Pupils: Equal, round and reactive pupils present Neck Neck: Yes normal visual inspection and Yes no lymphadenopathy Thyroid: Thyroid normal Resp Effort & Inspection: normal respiratory effort and able to speak in complete sentences Auscultation: clear to auscultation bilaterally Cardio Rate: regular rate Rhythm: regular rhythm Heart sounds: Normal, physiologic split S2 sound present Peripheral pulses: radial pulses present and posterior tibial pulses present GI Inspection: No distended, Yes Abdominal panniculus present and Yes obesity Palpation (GI): Soft to palpation, nontender, no guarding, not rigid and No hepatosplenomegaly present Percussion: Yes normal to percussion Auscultation: normal bowel sounds Rectal Exam - Female: deferred Skin General skin exam: no rashes or lesions noted, turgor normal, skin not dry, no jaundice, No spider nevi and no striae Rashes: no rashes Nails: normal Neuro General: oriented to person, oriented to place and oriented to time Cranial nerves: Yes Equal, round and reactive pupils present and Yes Normal hearing present Speech: No Abnormal speech present Extrem General: Yes normal to inspection, No clubbing, No cyanosis and No edema Psych Appearance: grossly normal and well kempt Mental Status: mental status grossly normal Speech and movement: Normal speech and movement present Affect: normal affect Attitude: cooperative Thought process: Normal thought process present and not confabulating Thought content: Normal thought content present Insight: Limited insight present (Psych) Judgement: Limited judgement present (Psych) Assessment & Plan Assessment & Plan (1) GERD (gastroesophageal reflux disease): Code(s): K21.9 - Gastro-esophageal reflux disease without esophagitis Category: Medical (2) Chronic idiopathic constipation: Code(s): K59.04 - Chronic idiopathic constipation Category: Medical (3) Esophageal stricture: Comment: With dilation erosive esophagitis in 2018-[place] Code(s): K22.2 - Esophageal obstruction Category: Medical (4) Erosive esophagitis: Comment: With dilation erosive esophagitis in 2018-[place] Code(s): K22.10 - Ulcer of esophagus without bleeding Category: Medical Plan Her swallowing has been good. She has severe jaw pain limiting her chewing and no top teeth now. She is having trouble with nocturnal diarrhea, and in the past she managed this well with fiber which she has fallen off of taking. I suggest she restart this and if this does not resolve it makes sense to have her follow up with Dr. Peña office since they do her colonoscopies and colon management. She says she does not have a FHX of crc in father, and I can't see where this was obtained in the chart so we will remove it. She says that Dr. George says she should have a 10 year follow up. KENNEDY kohli. Coding Level of Care Code Est Pt Level 3 (27488) Diagnoses GERD (gastroesophageal reflux disease) K21.9 Chronic idiopathic constipation K59.04 Esophageal stricture K22.2 Erosive esophagitis K22.10
[2024-01-21 13:17] VITALS: BP 137/65; PULSE 76; BMI 33.6
== END 2024-01-21 14:06 | disposition home or self-care (01) ==
PROVIDERS: PCP Internal Medicine; Visit Provider Nurse Practitioner
DX: K21.9 Gastro-esophageal reflux disease without esophagitis (principal); K59.04 Chronic idiopathic constipation; K22.2 Esophageal obstruction; K22.10 Ulcer of esophagus without bleeding
CPT/HCPCS: 99213

== ENCOUNTER → 2024-01-21 12:47 | Outpatient (BNVA) | payer MEDICARE, SELFPAY | PROVIDERS: PCP Internal Medicine; Visit Provider Nurse Practitioner | DX: K21.9 Gastro-esophageal reflux disease without esophagitis (principal); K59.04 Chronic idiopathic constipation; K22.2 Esophageal obstruction; K22.10 Ulcer of esophagus without bleeding | CPT/HCPCS: 99212 ==

== ENCOUNTER 2024-04-14 14:05 | Outpatient (AMB) | payer MEDICARE, MEDICAID, SELFPAY ==
--- NOTE | 2024-04-14 14:12 | A.OFFPC_ITS ---
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 Accompanied by: Self / Same As Patient Allergies No Known Allergies [No Known Allergies*] Allergy (Verified 04/14/24 14:17) Medication List - Last Reconciled 04/14/24 by Ishmael Zhou MD amlodipine 5 mg PO DAILY bupropion HCl XL 300 mg PO DAILY carbamazepine 200 mg PO TID citalopram 20 mg PO DAILY cyanocobalamin (vitamin B-12) 1,000 mcg sublingual DAILY cyanocobalamin (vitamin B-12) 1,000 mcg sublingual DAILY diaper,brief,adult,disposable ([place] Choice Comfort Protect Adult Diaper X- Large) As directed ferrous sulfate 325 mg PO DAILY gabapentin 600 mg PO BID mirtazapine 7.5 mg PO BEDTIME olanzapine 7.5 mg PO DAILY omeprazole 40 mg PO DAILY [pull ups twice per day as needed] Tobacco use date assessed: 04/14/24 Fall risk assessment: No Falls in past year Last assessed Fall Risk: 04/14/24 Dental Screening Dental Screen Date: 04/14/24 Did you have a dental visit in the last 12 months?: No Did you have a dental problem in the last 6 months where you did not have access to dental care?: No Was dental information given to patient?: Yes HPI 3 Month F/U HPI Details HTN on Rx; doing well and compliant [facility] Medical History (Updated 01/21/24 @ 14:02 by JOSE Mackenzie) Encounter for initial annual wellness visit (AWV) in Medicare patient Schizophrenia Surgical History History of esophagogastroduodenoscopy (EGD) Hx of colonoscopy History of laparoscopic cholecystectomy History of cardiac catheterization History of cataract surgery History of throat surgery History of bladder surgery Family History Father Past heart attack Diabetes Mother Past heart attack Paternal Grandmother Stomach cancer Other Mental health disorder Social History (Reviewed 01/21/24 @ 13:26 by MONICA Day Household Members: None Housing: Apartment Are you a primary special needs child caregiver to a significant other at home: No Do you presently have visiting nurse or other home services: No Alcohol intake: never Patient Tobacco Use Status: Never used Tobacco Tobacco use type: Cigarette e-Cigarette/Vaping Use: Never Used Second Hand Smoke Exposure: No service: No Current occupational status: disabled Cognitive needs: Yes (cane) Hearing needs: No Vision needs: No Questionnaire PHQ-9 Over the last 2 weeks, how often have you been bothered by any of the following problems? 1. Little interest or pleasure in doing things: not at all 2. Feeling down, depressed, or hopeless: not at all 3. Trouble falling or staying asleep, or sleeping too much: not at all 4. Feeling tired or having little energy: not at all 5. Poor appetite or overeating: not at all 6. Feeling bad about yourself - or that you are a failure or have let yourself or your family down: not at all 7. Trouble concentrating on things, such as reading the newspaper or watching television: not at all 8. Moving or speaking so slowly that other people could have noticed. Or the opposite - being so fidgety or restless that you have been moving around a lot more than usual: not at all 9. Thoughts that you would be better off or of hurting yourself in some way: not at all Total score: 0 Depression Screening Interpretation: Negative Depression Screening Done: Yes [id number] - PHQ-9 Billing: Yes Source: Developed by Drs. Jean Marie Granda, Poonam Mcclain, Brennan Duran and colleagues, with an educational leah from [employer]. Thrive Questionnaire Date Thrive assessed: 04/14/24 I am a: Patient What is your living situation today?: I have a steady place to live Within the past 12 months, did the food you bought not last and you didn't have the money to get more?: Never true Within the past 12 months, did you worry whether your food would run out before you got money to buy more?: Never true Do you have trouble paying for medicines?: No Do you have trouble getting transportation to medical appointments?: No Do you have trouble paying your heating and electricity bill?: No Do you have trouble taking care of your child, family member or friend?: No Do you have trouble with day-to-day activities such as bathing, preparing meals, shopping, managing finances, etc.?: No Are you currently unemployed and looking for a job?: No Are you interested in more education?: No Please select the resources that you would like help with: None THRIVE Score: 0 AUDIT C Alcohol Use Questionnaire (AUDIT-C) 1. How often do you have a drink containing alcohol?: Never Total Score: 0 Score Reviewed/Action Taken: Yes JULIO-7 AMB Questionnaire JULIO-7 Date JULIO - 7 assessed: 04/14/24 Feeling nervous, anxious, or on edge: 0 = Not at all Not being able to stop or control worryin = Not at all Worrying too much about different things: 0 = Not at all Trouble relaxin = Not at all Being so restless that it is hard to sit still: 0 = Not at all Becoming easily annoyed or irritable: 0 = Not at all Feeling afraid as if something awful might happen: 0 = Not at all Total JULIO-7 score (0-4 normal; 5-9 mild; 10-14 moderate; 15-21 severe): 0 Source: Developed by Drs. Jean Marie Granda, Poonam Mcclain, Brennan Duran and colleagues, with an educational leah from [employer]. Review of Systems Const Denies chills, Denies headache(s) and Denies weight loss ENT Denies headache(s) Card Denies chest pain, Denies syncope, Denies irregular heart rhythm and Denies dyspnea Resp Denies chest congestion, Denies cough and Denies dyspnea GI Denies abdominal pain, Denies change in stool character, Denies nausea and De nies vomiting Musc Denies deformity and Denies joint swelling Neuro Denies syncope and Denies headache(s) Physical exam (Primary Care) Vital Signs: Last Vital Signs Pulse 73 04/14/24 14:13 BP 142/74 H 04/14/24 14:13 Pulse Ox 94 04/14/24 14:13 Oxygen Delivery Method Room Air 04/14/24 14:13 BMI result Body Mass Index 34.5 Tobacco/Smoking Status: Tobacco use Status Tobacco use date assessed 04/14/24 04/14/24 14:20 Patient Tobacco Use Status Never used Tobacco 04/14/24 14:20 Tobacco use type Cigarette 04/14/24 14:20 e-Cigarette/Vaping Use Never Used 04/14/24 14:20 PHQ-9: PHQ-9 Score PHQ-9: Total score 0 04/14/24 14:25 Depression Screening Interpretation: Negative Thrive Assessment: Date of Thrive Assessment Date Thrive assessed 04/14/24 04/14/24 14:20 Const General: cooperative, comfortable, no acute distress and alert Neck Neck: Yes no lymphadenopathy Thyroid: Thyroid normal Resp Effort & Inspection: normal respiratory effort Auscultation: clear to auscultation bilaterally Percussion: percussion normal Cardio Jugular venous distension: no JVD Palpation: normal PMI Rate: regular rate Rhythm: regular rhythm Heart sounds: S1 normal heart sound present and S2 normal heart sound present GI Inspection: Yes normal to inspection Palpation (GI): No hepatosplenomegaly present Skin General skin exam: no rashes or lesions noted Extrem General: Yes no clubbing, cyanosis or edema Assessment and Plan Assessment & Plan (1) Hypertension: Code(s): I10 - Essential (primary) hypertension Plan: stable; same rx Orders: Orders XR knee RT 2V Today M25.569 - Pain in unspecified knee XR knee LT 2V Today M25.569 - Pain in unspecified knee Coding Level of Care Code Est Pt Level 3 (18952) Diagnoses Hypertension I10
[2024-04-14 14:13] VITALS: BP 142/74; PULSE 73; O2SAT 94; BMI 34.5
== END 2024-04-14 14:28 | disposition home or self-care (01) ==
PROVIDERS: PCP Internal Medicine; Visit Provider Internal Medicine
DX: I10 Essential (primary) hypertension (principal)

== ENCOUNTER → 2024-04-14 14:05 | Outpatient (BNVA) | payer MEDICARE, MEDICAID, SELFPAY | PROVIDERS: PCP Internal Medicine; Visit Provider Internal Medicine | DX: I10 Essential (primary) hypertension (principal); M25.561 Pain in right knee; M25.562 Pain in left knee | CPT/HCPCS: 99212 ==

== ENCOUNTER 2024-04-21 12:40 | Outpatient (REF) | payer MEDICARE, SELFPAY ==
--- NOTE | ~2024-04-21 | XR_ITS ---
EXAMINATION: XR KNEE LEFT 2 VIEWS CLINICAL INFORMATION: Pain in unspecified knee M25.569. Bilateral knee pain. COMPARISON: None available TECHNIQUE: Two views of the left knee. FINDINGS: Examination demonstrates mild to moderate tricompartmental osteoarthritis, with joint space narrowing, sclerosis, and osteophyte formation. No fracture or dislocation is appreciated. No lytic or sclerotic bony lesion is seen. No periosteal reaction is noted. Bony mineralization appears preserved. Question trace suprapatellar fluid. XR/XR knee LT 2V IMPRESSION: Osteoarthritis. Electronically signed by: Job Brown MD 07/03/2024 11:24 AM EST
--- NOTE | ~2024-04-21 | XR_ITS ---
EXAMINATION: XR KNEE RIGHT 2 VIEWS CLINICAL INFORMATION: M25.569 Pain in unspecified knee, pain knee bilateral. COMPARISON: XR Right knee 01/04/2017 TECHNIQUE: Two views of the right knee. FINDINGS: Tricompartmental osteoarthritis, worse within the medial compartment. No acute fractures or dislocations. No joint effusion. XR/XR knee RT 2V IMPRESSION: Tricompartmental osteoarthritis. Electronically signed by: Noel Downs DO 07/06/2024 02:30 PM BARRY
== END 2024-04-21 12:41 | disposition home or self-care (01) ==
LOC: HO.XRAY 12:40
PROVIDERS: Absent Provider Internal Medicine; PCP Internal Medicine; Visit Provider Nurse Practitioner Family
DX: R32 Unspecified urinary incontinence (principal); M25.561 Pain in right knee; M25.562 Pain in left knee
CPT/HCPCS: 51798; 73560; 81003; 99202

== ENCOUNTER 2024-04-21 12:40 | Outpatient (AMB) | payer MEDICARE, MEDICAID, SELFPAY ==
--- NOTE | 2024-04-21 13:32 | A.OFFVIS_ITS ---
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 Accompanied by: Self / Same As Patient Allergies No Known Allergies [No Known Allergies*] Allergy (Verified 04/21/24 14:04) Medication List - Last Reconciled 04/21/24 by VERONIQUE Miranda amlodipine 5 mg PO DAILY bupropion HCl XL 300 mg PO DAILY carbamazepine 200 mg PO TID citalopram 20 mg PO DAILY cyanocobalamin (vitamin B-12) 1,000 mcg sublingual DAILY cyanocobalamin (vitamin B-12) 1,000 mcg sublingual DAILY diaper,brief,adult,disposable ([place] Choice Comfort Protect Adult Diaper X- Large) As directed ferrous sulfate 325 mg PO DAILY gabapentin 600 mg PO BID mirtazapine 7.5 mg PO BEDTIME olanzapine 7.5 mg PO DAILY omeprazole 40 mg PO DAILY [pull ups twice per day as needed] HPI Comments Details: Lindsay is a very pleasant 73-year-old female patient of Dr. Zhou. She has a past medical history of schizophrenia. She presents to the office today as a new patient for mixed urinary incontinence. In discussion with the patient today she reports symptoms have been present for many years. She reports having followed up here with Dr. Nichols many years ago and trialed pelvic floor therapy as well as to medications that she does not recall the name however did not find them helpful. She reports following up with her PCP for annual visit in discussing ongoing mixed urinary incontinence at which time referral was made for urology for further assessment evaluation. When asked she does report a previous history of 1 vaginal of her daughter over 40 years ago. She reports labor was fast and her daughter was an average size babies. She also reports nocturnal incontinence. She otherwise denies hematuria, dysuria, foul smelling urine, changes to urinary stream, flank pain, fever, and or chills. In office urinalysis results reviewed with the patient today. PVR 0 mL. We discussed at length potential causes of lower urinary tract symptoms patient is experiencing. Discussed obtaining retroperitoneal ultrasound for further assessment evaluation. Discussed possible near future in office cystoscopy and or urodynamics for further assessment evaluation. She otherwise offers no other issues or concerns at this time. [facility] Medical History Encounter for initial annual wellness visit (AWV) in Medicare patient Schizophrenia Surgical History History of esophagogastroduodenoscopy (EGD) Hx of colonoscopy History of laparoscopic cholecystectomy History of cardiac catheterization History of cataract surgery History of throat surgery History of bladder surgery Family History Father Past heart attack Diabetes Mother Past heart attack Paternal Grandmother Stomach cancer Other Mental health disorder Social History Household Members: None Housing: Apartment Are you a primary infant childcare provider to a significant other at home: No Do you presently have visiting nurse or other home services: No Alcohol intake: never Patient Tobacco Use Status: Never used Tobacco Tobacco use type: Cigarette e-Cigarette/Vaping Use: Never Used Second Hand Smoke Exposure: No service: No Current occupational status: disabled Cognitive needs: Yes (cane) Hearing needs: No Vision needs: No Review of Systems Const All systems reviewed & are unremarkable except as noted in HPI and below Physical Exam Const General: cooperative, healthy appearing, comfortable, no acute distress, well developed, alert and awake Nutritional Appearance: overweight Orientation/consciousness: patient oriented x3 Limitations: no limitations HEENT Head: Yes normal to inspection, Yes normocephalic and Yes atraumatic Ears: hearing grossly normal bilaterally Eyes General: appearance normal, both eyes and all related structures Neck Neck: Yes normal visual inspection and Yes trachea midline Chest Chest palpation & inspection: normal inspection of the chest Resp Effort & Inspection: normal respiratory effort and able to speak in complete sentences Cardio Rate: regular rate GI Inspection: Yes normal to inspection General: Yes no CVA tenderness Back/Spine/Pelvis Back: no CVA tenderness Skin General skin exam: no rashes or lesions noted Neuro General: patient oriented x3 Extrem General: Yes normal to inspection Psych Appearance: grossly normal and well kempt Mental Status: mental status grossly normal Speech and movement: Normal speech and movement present and Clear speech present Affect: normal affect Attitude: cooperative Thought process: Normal thought process present Thought content: Normal thought content present Insight: Fair insight present (Psych) Judgement: Fair judgement present (Psych) Office Procedures Post Void Residual Post Residual Void Post Void Residual (PVR): 0 12078-Wyzi Void Residual by ultrasound Results AMB Urinalysis, Automated UA Leukoctes 15 Jasmyn/uL Last Edit by [employer] on 04/21/24 13:54 UA Nitrite Last Edit by [employer] on 04/21/24 13:54 UA Urobilinogen 0.2 mg/dL Last Edit by [employer] on 04/21/24 13:54 UA Protein 0 mg/dL Last Edit by [employer] on 04/21/24 13:54 UA pH 6.0 Last Edit by [employer] on 04/21/24 13:54 UA Blood 0 Jose Angel/uL Last Edit by [employer] on 04/21/24 13:54 UA Specific [place] 1.020 Last Edit by [employer] on 04/21/24 13:54 UA Ketone Negative Last Edit by [employer] on 04/21/24 13:54 UA Bilirubin 1 mg/dL Last Edit by [employer] on 04/21/24 13:54 UA Glucose 0 mg/dL Last Edit by [employer] on 04/21/24 13:54 Results Reviewed Results Reviewed: Laboratory Last Values Urine pH (Auto) 6.0 04/21/24 13:35 Specific [place] (Auto) 1.020 04/21/24 13:35 Urine Protein (Auto) 0 mg/dL 04/21/24 13:35 Glucose (UA)(Auto) 0 mg/dL 04/21/24 13:35 Urine Ketones (Auto) Negative 04/21/24 13:35 Urine Blood (Auto) 0 Jose Angel/uL 04/21/24 13:35 Urine Bilirubin (Auto) 1 mg/dL 04/21/24 13:35 Urine Urobilinogen (Auto) 0.2 mg/dL 04/21/24 13:35 Leukocyte Esterase (Auto) 15 Jasmyn/uL 04/21/24 13:35 Assessment & Plan Assessment & Plan (1) Incontinence: Code(s): R32 - Unspecified urinary incontinence Category: Medical Plan In office urinalysis results reviewed with the patient today; as noted above. Discussed at length potential causes lower urinary tract symptoms patient is experiencing. Discussed obtaining retroperitoneal ultrasound further assessment evaluation. Discussed bladder triggers/irritants. Discussed near future in office cystoscopy and or urodynamics for further assessment evaluation. Start Myrbetriq as discussed and prescribed. Discussed bladder triggers/irritants. Discussed purewick Follow-up in 1-3 months with imaging and labs to be completed prior; or sooner with any issues, concerns, and or questions. Orders: Orders US retroperitoneal comp Today R32 - Unspecified urinary incontinence AMB Urinalysis Automated Today Z13.9 - Encounter for screening, unspecified AMB Post Void Residual by ultrasound Today R32 - Unspecified urinary incontinence Medications: New mirabegron ER (Myrbetriq) 25 mg PO DAILY 30 days 30 tabs 1RF N30.10 - Interstitial cystitis (chronic) without hematuria, N32.81 - Overactive bladder, R35.1 - Nocturia, R39.15 - Urgency of urination Patient Instructions: The patient had an opportunity to ask questions regarding the treatment plan. All questions were answered. Physical exam, labs, and imaging were discussed and reviewed in detail. As well as risks, benefits, and discussion of treatment choices. No major barriers to understanding were identified. The patient expressed understanding and agreement with the above treatment plan. The patient was made aware they should contact our office by phone for worsening of their current condition, the appearance of new symptoms, or with any questions or concerns. Compliance is encouraged with any medications and follow up testing that is ordered. It is a privilege to be allowed the opportunity to participate in? your urological care.? Again, if you have any questions or concerns If you have any questions or concerns please do not hesitate to contact me. The office is [phone]. This note is constructed using voice recognition software. While every effort has been made to ensure accuracy lacrosse player errors may have been included. Yours sincerely, JEAN Miranda Coding Level of Care Code New Pt Level 4 (15958) Diagnoses Incontinence R32 CPT Codes Post Residual Void - PVR CPT Code: 19931-Kwzu Void Residual by ultrasound ([id number])
== END 2024-04-21 14:12 | disposition home or self-care (01) ==
PROVIDERS: PCP Internal Medicine; Visit Provider Nurse Practitioner Family
DX: R32 Unspecified urinary incontinence (principal); Z13.9 Encounter for screening, unspecified
CPT/HCPCS: 99204

== ENCOUNTER 2024-04-30 11:22 | Outpatient (REF) | payer MEDICARE, SELFPAY ==
--- NOTE | ~2024-04-30 | US_ITS ---
EXAMINATION: US RETROPERITONEAL COMPLETE (RENAL) CLINICAL INFORMATION: Unspecified urinary incontinence. COMPARISON: Ultrasound abdomen 11/23/2017 and 06/18/2012. CT abdomen and pelvis 11/23/2017. TECHNIQUE: Real-time imaging of the kidneys and bladder. FINDINGS: RIGHT KIDNEY: 11.5 x 4.9 x 4.4 cm (SAG x AP x TRV). The kidney is normal in size, contour, and echogenicity. Renal cortical thickness is normal. No renal calculi or hydronephrosis. 2 parapelvic benign Bosniak class I renal cysts are noted, the largest 1.2 cm, which require no additional imaging or followup. No solid renal masses are seen. LEFT KIDNEY: 11.8 x 4.8 x 3.8 cm (SAG x AP x TRV). The kidney is normal in size, contour, and echogenicity. Renal cortical thickness is normal. No renal calculi. Multiple benign parapelvic Bosniak class I renal cysts are noted which are mimicking hydronephrosis. These are best seen on the 11/23/2017 CT abdomen and pelvis. Although the apparel machinery instructor thought hydronephrosis was present, I suspect that this is all related to the parapelvic cysts. No solid renal masses are seen. BLADDER: Well distended and normal. Bilateral ureteral jets are demonstrated. Prevoid bladder volume is 176 mL. Postvoid bladder volume is 200 mL. US/US retroperitoneal comp IMPRESSION: 1. Bilateral benign Bosniak class I parapelvic renal cysts, left greater than right, which need no additional imaging or followup. 2. Large postvoid residual. Electronically signed by: Henok Taylor MD 06/09/2024 07:01 PM [facility]
== END 2024-04-30 11:23 | disposition home or self-care (01) ==
LOC: HO.US 11:22
PROVIDERS: PCP Internal Medicine; Visit Provider Nurse Practitioner Family
DX: R32 Unspecified urinary incontinence (principal)
CPT/HCPCS: 76770

== ENCOUNTER 2024-05-27 13:14 | Outpatient (AMB) | payer MEDICARE, MEDICAID, SELFPAY ==
[2024-05-27 14:39] VITALS: BP 130/68; PULSE 76; BMI 35.2
--- NOTE | 2024-05-27 14:39 | A.OFFVIS_ITS ---
Vital Signs 05/27/24 14:39 Height 5 ft 4 in Weight 205 lb 0.478 oz BMI 35.2 BP 130/68 Blood Pressure Location Lt brachial Position Sitting Pulse 76 Pulse Source Monitor Intake Visit Reasons: 6m follow up Allergies No Known Allergies [No Known Allergies*] Allergy (Verified 04/21/24 14:04) Medication List - Last Reconciled 05/27/24 by Trell Key MD amlodipine 5 mg PO DAILY bupropion HCl XL 300 mg PO DAILY carbamazepine 200 mg PO BID citalopram 20 mg PO DAILY cyanocobalamin (vitamin B-12) 1,000 mcg sublingual DAILY cyanocobalamin (vitamin B-12) 1,000 mcg sublingual DAILY diaper,brief,adult,disposable ([place] Choice Comfort Protect Adult Diaper X- Large) As directed ferrous sulfate 325 mg PO DAILY gabapentin 600 mg PO BID mirabegron ER (Myrbetriq) 25 mg PO DAILY 30 days mirtazapine 7.5 mg PO BEDTIME olanzapine 7.5 mg PO DAILY omeprazole 40 mg PO DAILY [pull ups twice per day as needed] HPI Comments Details: 73-year-old female who is here follow-up. She has background history of dyspnea. She had anemia in the past which has been stable mostly. She also had coronary angiography for dyspnea on exertion which was unremarkable. She is returning and is complaining of fatigue and shortness of breath. She is quite sedentary at this stage and does not exercise regularly. Denying any other symptoms in particular no chest discomfort. Taking medications regularly and tolerating them well. Blood pressure control is good. 01/30/23: She returns for follow-up. She has been experiencing some pressure- like feeling at nighttime. His last for hours and does not happen during the day. She has significant issues with previous esophageal stricture as well as he has esophagitis. She has acid reflux. She is denying any chest discomfort shortness of breath with activity. 06/05/2023: She returns for follow-up. She has no chest pain or shortness of breath. She has run out of her amlodipine and has not been taking it for few weeks. Blood pressure continues to be good. We will send a script for her. She said she was in the emergency department with lower back pain. 05/27/2024: She is here for 1 year follow-up. She is complaining of shortness of breath with activities. She has known history of anemia and currently is on ferrous sulfate and vitamin B12. She is saying she may be getting some blood workup in the coming week. Physically not active and that is probably playing a big role in her dyspnea. [facility], [facility] Medical History Encounter for initial annual wellness visit (AWV) in Medicare patient Schizophrenia Surgical History History of esophagogastroduodenoscopy (EGD) Hx of colonoscopy History of laparoscopic cholecystectomy History of cardiac catheterization History of cataract surgery History of throat surgery History of bladder surgery Family History Father Past heart attack Diabetes Mother Past heart attack Paternal Grandmother Stomach cancer Other Mental health disorder Social History Household Members: None Housing: Apartment Are you a primary daycare teacher to a significant other at home: No Do you presently have visiting nurse or other home services: No Alcohol intake: never Patient Tobacco Use Status: Never used Tobacco Tobacco use type: Cigarette e-Cigarette/Vaping Use: Never Used Second Hand Smoke Exposure: No service: No Current occupational status: disabled Cognitive needs: Yes (cane) Hearing needs: No Vision needs: No Review of Systems Const Denies weakness ENT Denies dizziness Card Denies chest pain, Denies chest pain with activity, Denies syncope, Denies rapid heart rate, Denies pedal edema, Denies edema, Denies leg edema, Denies lightheadedness, Denies palpitations, Denies dyspnea, Denies dyspnea on exertion and Denies orthopnea Resp Denies cough, Denies dyspnea and Denies dyspnea on exertion GI Denies hematochezia and Denies change in stool character Musc Denies abnormal gait, Denies muscle cramps, Denies muscle weakness, Denies numbn ess, Denies radiating pain into limb and Denies tingling Neuro Denies abnormal gait, Denies dizziness, Denies syncope, Denies numbness, Denies tingling and Denies weakness Endo Denies palpitations Physical Exam Vital Signs: Last Vital Signs Pulse 76 05/27/24 14:39 BP 130/68 05/27/24 14:39 BMI result Body Mass Index 35.2 GENERAL APPEARANCE: in no acute distress, pleasant. NECK: no carotid bruit, no jugular venous distention. SKIN: no suspicious lesions, warm and dry. HEART: no murmurs, regular rate and rhythm. LUNGS: clear to auscultation bilaterally. ABDOMEN: soft, nontender. EXTREMITIES: no edema. PERIPHERAL PULSES: equal. NEUROLOGIC: No gross deficits, AAO X 3 Office Procedures EKG Details: Normal sinus rhythm, left axis deviation. Septal infarct. QTC 456 milliseconds. [id number], Complete Assessment & Plan Assessment & Plan (1) Hypertension: Code(s): I10 - Essential (primary) hypertension Category: Medical Plan Pleasant 73-year-old female who is here for follow-up. She has background of hypertension. Blood pressure control is good. Dyspnea on exertion is multifactorial due to anemia in the past as well as lack of physical activity and deconditioning. Clinically not in heart failure. Previously had cardiac catheterization which did not show any coronary disease. I have advised her to exercise regularly and I think that will help her shortness of breath. She will also have blood workup to assess her anemia. Thank you for allowing me to participate in the care of your patient. Please feel free to contact me if you have any questions. Coding Level of Care Code Est Pt Level 4 (42910) Diagnoses Hypertension I10 CPT Codes EKG - CPT: 51611-[id number], Complete ([id number])
== END 2024-05-27 15:06 | disposition home or self-care (01) ==
LOC: HO.HCS 13:15
PROVIDERS: PCP Internal Medicine; Visit Provider Internal Medicine Cardiovascular Disease
DX: I10 Essential (primary) hypertension (principal)
CPT/HCPCS: 93010; 99214

== ENCOUNTER → 2024-05-27 13:14 | Outpatient (BNVA) | payer MEDICARE, MEDICAID, SELFPAY | PROVIDERS: PCP Internal Medicine; Visit Provider Internal Medicine Cardiovascular Disease | DX: I10 Essential (primary) hypertension (principal); R06.02 Shortness of breath; R53.81 Other malaise | CPT/HCPCS: 93005; 99212 ==

== ENCOUNTER 2024-06-04 12:18 | Outpatient (AMB) | payer MEDICARE, SELFPAY ==
--- NOTE | 2024-06-04 13:01 | A.OFFVIS_ITS ---
Intake Visit Reasons: 1m/US(set) Intake Note: Patient presents for follow up visit for urinary incontinence Urology Medications: myrbetriq Blood Thinner:none PVR: 0ml's Body Repairer Required: No Accompanied by: Self / Same As Patient Allergies No Known Allergies [No Known Allergies*] Allergy (Verified 06/09/24 14:34) Medication List - Last Reconciled 06/04/24 by JEAN Miranda amlodipine 5 mg PO DAILY bupropion HCl XL 300 mg PO DAILY carbamazepine 200 mg PO BID citalopram 20 mg PO DAILY cyanocobalamin (vitamin B-12) 1,000 mcg sublingual DAILY cyanocobalamin (vitamin B-12) 1,000 mcg sublingual DAILY diaper,brief,adult,disposable ([place] Choice Comfort Protect Adult Diaper X- Large) As directed ferrous sulfate 325 mg PO DAILY gabapentin 600 mg PO BID mirtazapine 7.5 mg PO BEDTIME olanzapine 7.5 mg PO DAILY omeprazole 40 mg PO DAILY [pull ups twice per day as needed] vibegron (Gemtesa) 75 mg PO DAILY 30 days HPI Comments Details: Lindsay is a very pleasant 73-year-old female patient of Dr. Zhou. She has a past medical history of schizophrenia. She presents to the office today for follow-up. Of note, patient was seen approximately 6 weeks ago as a new patient for mixed urinary incontinence at which time a retroperitoneal ultrasound was ordered for further assessment evaluation and the patient was started on 25 mg of Myrbetriq daily. In discussion with the patient today she reports no improvement in mixed urinary incontinence she had been experiencing despite compliance with Myrbetriq as prescribed. She discusses at length her ongoing issues with her teeth/mouth. She continues to report urinary urgency and frequency as well as nocturia with episodes of incontinence if not near a bathroom. She has a history of following up here with Dr. Nichols many years ago at which time she underwent pelvic floor therapy and OAB medications however is unsure as to the name of these medications. She does have a previous history of 1 vaginal of her daughter over 40 years ago. She reports labor was fast and her daughter was an average size babies. She also reports nocturnal incontinence. She otherwise denies hematuria, dysuria, foul smelling urine, changes to urinary stream, flank pain, fever, and or chills. In office urinalysis results reviewed with the patient today. PVR 0 mL. Recent retroperitoneal ultrasound results were reviewed with the patient today. Bilateral kidneys are normal in size, contour, and echogenicity. No renal calculi or hydronephrosis noted bilaterally. Bilateral benign Bosniak class 1 peripelvic cysts left greater than right which require no additional follow-up per radiology report. The bladder is well distended and normal. Bilateral ureteral jets are demonstrated. Pre void bladder volume is approximately 175 mL. Postvoid bladder volume is a proximally 200 mL. Discussed possible near future in office cystoscopy and or urodynamics for further assessment evaluation. She otherwise offers no other issues or concerns at this time. [facility] Medical History Encounter for initial annual wellness visit (AWV) in Medicare patient Schizophrenia Surgical History History of esophagogastroduodenoscopy (EGD) Hx of colonoscopy History of laparoscopic cholecystectomy History of cardiac catheterization History of cataract surgery History of throat surgery History of bladder surgery Family History Father Past heart attack Diabetes Mother Past heart attack Paternal Grandmother Stomach cancer Other Mental health disorder Social History Household Members: None Housing: Apartment Are you a primary home health care provider to a significant other at home: No Do you presently have visiting nurse or other home services: No Alcohol intake: never Patient Tobacco Use Status: Never used Tobacco Tobacco use type: Cigarette e-Cigarette/Vaping Use: Never Used Second Hand Smoke Exposure: No Use of substances other than those prescribed or required for medical reasons: No Have you been hit, kicked, punched, or otherwise hurt by someone within the past year? If so, by whom?: No Do you feel safe in your current relationship?: Yes Is there a partner from a previous relationship who is making you feel unsafe now?: No Advance Directives: No Advance Directives Information Provided: Yes Do you have a plan to hurt others: No Plan Do you have the means to hurt others: No Patient : No service: No Current occupational status: disabled Cognitive needs: Yes (cane) Hearing needs: No Vision needs: No Review of Systems Const All systems reviewed & are unremarkable except as noted in HPI and below Physical Exam Const General: cooperative, healthy appearing, comfortable, no acute distress, well developed, alert and awake Nutritional Appearance: overweight Orientation/consciousness: patient oriented x3 Limitations: no limitations HEENT Head: Yes normal to inspection, Yes normocephalic and Yes atraumatic Ears: hearing grossly normal bilaterally Eyes General: appearance normal, both eyes and all related structures Neck Neck: Yes normal visual inspection and Yes trachea midline Chest Chest palpation & inspection: normal inspection of the chest Resp Effort & Inspection: normal respiratory effort and able to speak in complete sentences Cardio Rate: regular rate GI Inspection: Yes normal to inspection General: Yes no CVA tenderness Back/Spine/Pelvis Back: no CVA tenderness Skin General skin exam: no rashes or lesions noted Neuro General: patient oriented x3 Extrem General: Yes normal to inspection Psych Appearance: grossly normal and well kempt Mental Status: mental status grossly normal Speech and movement: Normal speech and movement present and Clear speech present Affect: normal affect Attitude: cooperative Thought process: Normal thought process present Thought content: Normal thought content present Insight: Fair insight present (Psych) Judgement: Fair judgement present (Psych) Office Procedures Post Void Residual Post Residual Void Post Void Residual (PVR): 0 [id number] Void Residual by ultrasound Results AMB Urinalysis, Automated UA Leukoctes 0 Jasmyn/uL Last Edit by Azalea Lockwood on 06/04/24 13:11 UA Nitrite Last Edit by Azalea Lockwood on 06/04/24 13:11 UA Urobilinogen 0.2 mg/dL Last Edit by Azalea Lockwood on 06/04/24 13:11 UA Protein 15 mg/dL Last Edit by Azalea Lockwood on 06/04/24 13:11 UA pH 5.5 Last Edit by Azalea Lockwood on 06/04/24 13:11 UA Blood 0 Jose Angel/uL Last Edit by Azalea Rhiannaarcelia on 06/04/24 13:11 UA Specific [place] 1.025 Last Edit by Azalea Lockwood on 06/04/24 13:11 UA Ketone Last Edit by Azalea Rhiannaarcelia on 06/04/24 13:11 UA Bilirubin 0 mg/dL Last Edit by Azalea Rhiannaarcelia on 06/04/24 13:11 UA Glucose 0 mg/dL Last Edit by Azalea Lockwood on 06/04/24 13:11 Results Reviewed Results Reviewed: Laboratory Last Values Urine pH (Auto) 5.5 06/04/24 13:03 Specific [place] (Auto) 1.025 06/04/24 13:03 Urine Protein (Auto) 15 mg/dL 06/04/24 13:03 Glucose (UA)(Auto) 0 mg/dL 06/04/24 13:03 Urine Blood (Auto) 0 Jose Angel/uL 06/04/24 13:03 Urine Bilirubin (Auto) 0 mg/dL 06/04/24 13:03 Urine Urobilinogen (Auto) 0.2 mg/dL 06/04/24 13:03 Leukocyte Esterase (Auto) 0 Jasmyn/uL 06/04/24 13:03 Date of Service: 04/30/24 EXAMINATION: US RETROPERITONEAL COMPLETE (RENAL) FINDINGS: RIGHT KIDNEY: 11.5 x 4.9 x 4.4 cm (SAG x AP x TRV). The kidney is normal in size, contour, and echogenicity. Renal cortical thickness is normal. No renal calculi or hydronephrosis. 2 parapelvic benign Bosniak class I renal cysts are noted, the largest 1.2 cm, which require no additional imaging or followup. No solid renal masses are seen. LEFT KIDNEY: 11.8 x 4.8 x 3.8 cm (SAG x AP x TRV). The kidney is normal in size, contour, and echogenicity. Renal cortical thickness is normal. No renal calculi. Multiple benign parapelvic Bosniak class I renal cysts are noted which are mimicking hydronephrosis. These are best seen on the 11/23/2017 CT abdomen and pelvis. Although the track and field coach thought hydronephrosis was present, I suspect that this is all related to the parapelvic cysts. No solid renal masses are seen. BLADDER: Well distended and normal. Bilateral ureteral jets are demonstrated. Prevoid bladder volume is 176 mL. Postvoid bladder volume is 200 mL. IMPRESSION: 1. Bilateral benign Bosniak class I parapelvic renal cysts, left greater than right, which need no additional imaging or followup. 2. Large postvoid residual. Assessment & Plan Assessment & Plan (1) Incontinence: Code(s): R32 - Unspecified urinary incontinence Category: Medical Plan In office urinalysis results reviewed with the patient today; as noted above. PVR 0 mL Discussed at length potential causes lower urinary tract symptoms patient is experiencing. Recent retroperitoneal ultrasound results reviewed with the patient today; as noted above. Discussed bladder triggers/irritants. Discussed near future in office cystoscopy and or urodynamics for further assessment evaluation. Stop Myrbetriq. Start Gemtesa 75 mg daily. Discussed purewick to assist with nocturia incontinence. Follow-up in 1-3 months with PVR; or sooner with any issues, concerns, and or questions. Orders: Orders AMB Urinalysis Automated 06/04/24 Z13.9 - Encounter for screening, unspecified AMB Post Void Residual by ultrasound 06/04/24 R32 - Unspecified urinary incontinence Medications: New vibegron (Gemtesa) 75 mg PO DAILY 30 tabs 3RF 30 days N32.81 - Overactive bladder Discontinued mirabegron ER (Myrbetriq) Discontinued Reason: Doctor's Order 25 mg PO DAILY 30 days 30 tabs 1RF N30.10 - Interstitial cystitis (chronic) without hematuria, N32.81 - Overactive bladder, R35.1 - Nocturia, R39.15 - Urgency of urination Patient Instructions: The patient had an opportunity to ask questions regarding the treatment plan. All questions were answered. Physical exam, labs, and imaging were discussed and reviewed in detail. As well as risks, benefits, and discussion of treatment choices. No major barriers to understanding were identified. The patient expressed understanding and agreement with the above treatment plan. The patient was made aware they should contact our office by phone for worsening of their current condition, the appearance of new symptoms, or with any questions or concerns. Compliance is encouraged with any medications and follow up testing that is ordered. It is a privilege to be allowed the opportunity to participate in? your urological care.? Again, if you have any questions or concerns If you have any questions or concerns please do not hesitate to contact me. The office is [phone]. This note is constructed using voice recognition software. While every effort has been made to ensure accuracy senior environmental practice leader errors may have been included. Yours sincerely, ALE Miranda-ARIELA Coding Level of Care Code Est Pt Level 4 (35368) Diagnoses Incontinence R32 CPT Codes Post Residual Void - PVR CPT Code: 19192-Bmql Void Residual by ultrasound ([id number])
== END 2024-06-04 13:31 | disposition home or self-care (01) ==
PROVIDERS: PCP Internal Medicine; Visit Provider Nurse Practitioner Family
DX: R32 Unspecified urinary incontinence (principal)
CPT/HCPCS: 99214

== ENCOUNTER → 2024-06-04 12:18 | Outpatient (BNVA) | payer MEDICARE, SELFPAY | PROVIDERS: PCP Internal Medicine; Visit Provider Nurse Practitioner Family | DX: R32 Unspecified urinary incontinence (principal) | CPT/HCPCS: 51798; 81003; 99212 ==

== ENCOUNTER 2024-07-30 12:12 | Outpatient (AMB) | payer MEDICARE, SELFPAY ==
--- NOTE | 2024-07-30 12:52 | MHC.OFFVIS ---
Intake Visit Reasons: 2m/PVR Intake Note: Patient presents for follow up visit for urinary incontinence Urology Medications: Gemtesa Blood Thinner:none PVR: 136ml's Cap Cutter Required: No Accompanied by: Self / Same As Patient Allergies No Known Allergies [No Known Allergies*] Allergy (Verified 07/30/24 13:13) Medication List - Last Reconciled 07/30/24 by LEONORA MirandaP- amlodipine 5 mg PO DAILY bupropion HCl XL 300 mg PO DAILY carbamazepine 200 mg PO BID citalopram 20 mg PO DAILY cyanocobalamin (vitamin B-12) 1,000 mcg sublingual DAILY cyanocobalamin (vitamin B-12) 1,000 mcg sublingual DAILY diaper,brief,adult,disposable ([place] Choice Comfort Protect Adult Diaper X-Large) As directed ferrous sulfate 325 mg PO DAILY gabapentin 600 mg PO BID mirtazapine 7.5 mg PO BEDTIME olanzapine 7.5 mg PO DAILY omeprazole 40 mg PO DAILY [pull ups twice per day as needed] vibegron (Gemtesa) 75 mg PO DAILY 30 days HPI Comments Details: Lindsay is a very pleasant 74-year-old female patient of Dr. Zhou. She has a past medical history of schizophrenia. She presents to the office today for follow-up of her mixed urinary incontinence. In discussion with the patient today she reports to be doing and feeling well. She reports feeling Gemtesa has been extremely helpful in episodes of urinary urgency, urinary frequency, and nocturia she had been experiencing. Patient previously trialed Myrbetriq with no improvement. Previous workup has included a retroperitoneal ultrasound 04/22 noting bilateral benign Bosniak class 1 peripelvic renal cysts left greater than right which require no additional follow-up imaging per radiology report. She does have a previous history of trialing pelvic floor therapy with no improvement in her lower urinary tract symptoms. She also has a previous history of 1 vaginal of her daughter over 40 years ago. She reports labor was fast and her daughter was an average size babies. She denies hematuria, dysuria, foul smelling urine, changes to urinary stream, flank pain, fever, and or chills. In office urinalysis results reviewed with the patient today. PVR 136ml's. We discussed possible near future in office cystoscopy and or urodynamics for further assessment evaluation. She otherwise offers no other issues or concerns at this time. [facility] Medical History Encounter for initial annual wellness visit (AWV) in Medicare patient Schizophrenia Surgical History History of esophagogastroduodenoscopy (EGD) Hx of colonoscopy History of laparoscopic cholecystectomy History of cardiac catheterization History of cataract surgery History of throat surgery History of bladder surgery Family History Father Past heart attack Diabetes Mother Past heart attack Paternal Grandmother Stomach cancer Other Mental health disorder Social History Household Members: None Housing: Apartment Are you a primary laboratory animal caretaker to a significant other at home: No Do you presently have visiting nurse or other home services: No Alcohol intake: never Patient Tobacco Use Status: Never used Tobacco Tobacco use type: Cigarette e-Cigarette/Vaping Use: Never Used Second Hand Smoke Exposure: No service: No Current occupational status: disabled Cognitive needs: Yes (cane) Hearing needs: No Vision needs: No Review of Systems Const All systems reviewed & are unremarkable except as noted in HPI and below Physical Exam Const General: cooperative, healthy appearing, comfortable, no acute distress, well developed, alert and awake Nutritional Appearance: overweight Orientation/consciousness: patient oriented x3 Limitations: no limitations HEENT Head: Yes normal to inspection, Yes normocephalic and Yes atraumatic Ears: hearing grossly normal bilaterally Eyes General: appearance normal, both eyes and all related structures Neck Neck: Yes normal visual inspection and Yes trachea midline Chest Chest palpation & inspection: normal inspection of the chest Resp Effort & Inspection: normal respiratory effort and able to speak in complete sentences Cardio Rate: regular rate GI Inspection: Yes normal to inspection General: Yes no CVA tenderness Back/Spine/Pelvis Back: no CVA tenderness Skin General skin exam: no rashes or lesions noted Neuro General: patient oriented x3 Extrem General: Yes normal to inspection Psych Appearance: grossly normal and well kempt Mental Status: mental status grossly normal Speech and movement: Normal speech and movement present and Clear speech present Affect: normal affect Attitude: cooperative Thought process: Normal thought process present Thought content: Normal thought content present Insight: Fair insight present (Psych) Judgement: Fair judgement present (Psych) Office Procedures Post Void Residual Post Residual Void Post Void Residual (PVR): [id number] Void Residual by ultrasound Results AMB Urinalysis, Automated UA Leukoctes 0 Jasmyn/uL Last Edit by Azalea Lockwood on 07/30/24 13:08 UA Nitrite Last Edit by Azalea Lockwood on 07/30/24 13:08 UA Urobilinogen 0.2 mg/dL Last Edit by Azalea Lockwood on 07/30/24 13:08 UA Protein 15 mg/dL Last Edit by [employer] Rosumarcelia on 07/30/24 13:08 UA pH 6.0 Last Edit by Blaze DFMarcelia on 07/30/24 13:08 UA Blood 0 Jose Angel/uL Last Edit by [employer] Lockwood on 07/30/24 13:08 UA Specific [place] 1.020 Last Edit by [employer] Lockwood on 07/30/24 13:08 UA Ketone Last Edit by Pledge51julissa Lockwood on 07/30/24 13:08 UA Bilirubin 0 mg/dL Last Edit by [employer] Rosumarcelia on 07/30/24 13:08 UA Glucose 0 mg/dL Last Edit by Blaze DFMarcelia on 07/30/24 13:08 Results Reviewed Results Reviewed: Laboratory Last Values Urine pH (Auto) 6.0 07/30/24 13:06 Specific [place] (Auto) 1.020 07/30/24 13:06 Urine Protein (Auto) 15 mg/dL 07/30/24 13:06 Glucose (UA)(Auto) 0 mg/dL 07/30/24 13:06 Urine Blood (Auto) 0 Jose Angel/uL 07/30/24 13:06 Urine Bilirubin (Auto) 0 mg/dL 07/30/24 13:06 Urine Urobilinogen (Auto) 0.2 mg/dL 07/30/24 13:06 Leukocyte Esterase (Auto) 0 Jasmyn/uL 07/30/24 13:06 Assessment & Plan Assessment & Plan (1) Incontinence: Code(s): R32 - Unspecified urinary incontinence Category: Medical (2) Overactive bladder: Code(s): N32.81 - Overactive bladder Category: Medical Plan In office urinalysis results reviewed the patient today; as noted above. PVR 136 mL. Continue Gemtesa. We discussed somewhat elevated PVR however will reassess in 2 weeks with nursing as patient is reporting some issues with constipation over the last couple of days. She reports be happy with her current voiding parameters on Gemtesa. Discussed bladder triggers/irritants. Discussed near future in office cystoscopy and or urodynamics for further assessment evaluation. Follow-up with nursing in 2 weeks for PVR; will reassess provider appointment at that time. Orders: Orders AMB Urinalysis Automated Today Z13.9 - Encounter for screening, unspecified AMB Post Void Residual by ultrasound Today R32 - Unspecified urinary incontinence Patient Instructions: The patient had an opportunity to ask questions regarding the treatment plan. All questions were answered. Physical exam, labs, and imaging were discussed and reviewed in detail. As well as risks, benefits, and discussion of treatment choices. No major barriers to understanding were identified. The patient expressed understanding and agreement with the above treatment plan. The patient was made aware they should contact our office by phone for worsening of their current condition, the appearance of new symptoms, or with any questions or concerns. Compliance is encouraged with any medications and follow up testing that is ordered. It is a privilege to be allowed the opportunity to participate in? your urological care.? Again, if you have any questions or concerns If you have any questions or concerns please do not hesitate to contact me. The office is [phone]. This note is constructed using voice recognition software. While every effort has been made to ensure accuracy inspector material disposition errors may have been included. Yours sincerely, JAEN Miranda Coding Level of Care Code Est Pt Level 3 (85968) Diagnoses Incontinence R32 Overactive bladder N32.81 CPT Codes Post Residual Void - PVR CPT Code: 97776-Xpmv Void Residual by ultrasound ([id number])
== END 2024-07-30 13:11 | disposition home or self-care (01) ==
PROVIDERS: PCP Internal Medicine; Visit Provider Nurse Practitioner Family
DX: R32 Unspecified urinary incontinence (principal); N32.81 Overactive bladder; Z13.9 Encounter for screening, unspecified
CPT/HCPCS: 99213

== ENCOUNTER → 2024-07-30 12:12 | Outpatient (BNVA) | payer MEDICARE, SELFPAY | PROVIDERS: PCP Internal Medicine; Visit Provider Nurse Practitioner Family | DX: R32 Unspecified urinary incontinence (principal); N32.81 Overactive bladder | CPT/HCPCS: 51798; 81003; 99212 ==

== ENCOUNTER → 2024-08-13 14:27 | Outpatient (BNVA) | payer MEDICARE, SELFPAY | PROVIDERS: PCP Internal Medicine; Visit Provider Nurse Practitioner Family | DX: N32.81 Overactive bladder (principal) | CPT/HCPCS: 51798 ==

== ENCOUNTER 2024-09-10 09:26 | Outpatient (AMB) | payer MEDICARE, SELFPAY ==
--- NOTE | 2024-09-10 09:27 | A.OFFPC_ITS ---
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 Accompanied by: Self / Same As Patient Allergies No Known Allergies [No Known Allergies*] Allergy (Verified 09/10/24 22:29) Medication List - Last Reconciled 09/10/24 by SANDI Crenshaw amlodipine 5 mg PO DAILY amoxicillin-pot clavulanate 500-125 mg (Augmentin) 1 tab PO BID 7 days bupropion HCl XL 300 mg PO DAILY carbamazepine 200 mg PO BID citalopram 20 mg PO DAILY cyanocobalamin (vitamin B-12) 1,000 mcg sublingual DAILY cyanocobalamin (vitamin B-12) 1,000 mcg sublingual DAILY diaper,brief,adult,disposable ([place] Choice Comfort Protect Adult Diaper X- Large) As directed ferrous sulfate 325 mg PO DAILY fluticasone propionate 50 mcg/actuation 1 spray intranasal BID gabapentin 600 mg PO BID loratadine (Allergy Relief (loratadine)) 10 mg PO DAILY PRN mirtazapine 7.5 mg PO BEDTIME olanzapine 7.5 mg PO DAILY omeprazole 40 mg PO DAILY prednisone 10 mg PO DIRECTED [pull ups twice per day as needed] vibegron (Gemtesa) 75 mg PO DAILY 30 days Tobacco use date assessed: 09/10/24 Fall risk assessment: No Falls in past year Last assessed Fall Risk: 09/10/24 Dental Screening Dental Screen Date: 09/10/24 Did you have a dental visit in the last 12 months?: No Did you have a dental problem in the last 6 months where you did not have access to dental care?: No Was dental information given to patient?: No HPI Flu like symptoms/fever HPI Details The patient reports that 5 days history of cold symptoms reports that she had a fever first, she did not check it but she felt like she did Reports that then after the fever, she had congested cough Patient reports that she has been coughing up yellow phlegm for 2 days now Patient reports mild sob and wheezing Patient reports left maxillary pressure and pain-reports that she has a history of this Reports treatments of nyquil with mild relief of the symptoms Reports that she was taking ibuprofen and aspirin in between-educated patient on the risk of taking these 2 medications together +mild sore throat Reports that her left ear has been blocked during these five days She denies muscle aches On exam: left ear with effusion and pain lungs are clear to auscultation bilaterally [facility] Medical History Encounter for initial annual wellness visit (AWV) in Medicare patient Schizophrenia Surgical History History of esophagogastroduodenoscopy (EGD) Hx of colonoscopy History of laparoscopic cholecystectomy History of cardiac catheterization History of cataract surgery History of throat surgery History of bladder surgery Family History Father Past heart attack Diabetes Mother Past heart attack Paternal Grandmother Stomach cancer Other Mental health disorder Social History Household Members: None Housing: Apartment Are you a primary career developer to a significant other at home: No Do you presently have visiting nurse or other home services: No Alcohol intake: never Patient Tobacco Use Status: Never used Tobacco Tobacco use type: Cigarette e-Cigarette/Vaping Use: Never Used Second Hand Smoke Exposure: No service: No Current occupational status: disabled Cognitive needs: Yes (canifrah) Hearing needs: No Vision needs: No Questionnaire PHQ-9 Over the last 2 weeks, how often have you been bothered by any of the following problems? 1. Little interest or pleasure in doing things: not at all 2. Feeling down, depressed, or hopeless: not at all 3. Trouble falling or staying asleep, or sleeping too much: not at all 4. Feeling tired or having little energy: not at all 5. Poor appetite or overeating: not at all 6. Feeling bad about yourself - or that you are a failure or have let yourself or your family down: not at all 7. Trouble concentrating on things, such as reading the newspaper or watching television: not at all 8. Moving or speaking so slowly that other people could have noticed. Or the opposite - being so fidgety or restless that you have been moving around a lot more than usual: not at all 9. Thoughts that you would be better off or of hurting yourself in some way: not at all Total score: 0 Depression Screening Interpretation: Negative Depression Screening Done: Yes 12736 - PHQ-9 Billing: Yes Source: Developed by Drs. Jean Marie Granda, Poonam Mcclain, Brennan Duran and colleagues, with an educational leah from [employer]. Thrive Questionnaire Date Thrive assessed: 09/10/24 I am a: Patient What is your living situation today?: I have a steady place to live Within the past 12 months, did the food you bought not last and you didn't have the money to get more?: Never true Within the past 12 months, did you worry whether your food would run out before you got money to buy more?: Never true Do you have trouble paying for medicines?: No Do you have trouble getting transportation to medical appointments?: No Do you have trouble paying your heating and electricity bill?: No Do you have trouble taking care of your child, family member or friend?: No Do you have trouble with day-to-day activities such as bathing, preparing meals, shopping, managing finances, etc.?: No Are you currently unemployed and looking for a job?: No Are you interested in more education?: No Please select the resources that you would like help with: None Currently or been in a relationship where the following occur: No concerns reported THRIVE Score: 0 AUDIT C Alcohol Use Questionnaire (AUDIT-C) 1. How often do you have a drink containing alcohol?: Never Total Score: 0 Score Reviewed/Action Taken: Yes JULIO-7 AMB Questionnaire JULIO-7 Date JULIO - 7 assessed: 09/10/24 Feeling nervous, anxious, or on edge: 0 = Not at all Not being able to stop or control worryin = Not at all Worrying too much about different things: 0 = Not at all Trouble relaxin = Not at all Being so restless that it is hard to sit still: 0 = Not at all Becoming easily annoyed or irritable: 0 = Not at all Feeling afraid as if something awful might happen: 0 = Not at all Total JULIO-7 score (0-4 normal; 5-9 mild; 10-14 moderate; 15-21 severe): 0 Source: Developed by Drs. Jean Marie Granda, Poonam Mcclain, Brennan Duran and colleagues, with an educational leah from [employer]. JULIO-7 Assessment Billing JULIO-7 Assessment Tool: JULIO-7 Assessment 17571 Review of Systems Const Details: Denies chills, Denies fatigue, + fever(s), Denies headache(s) and Denies weakness HEENT Denies change in vision, Denies dizziness, Denies headache(s), Denies hearing loss, +nasal congestion, +sinus pain, +sinus pressure and + mild sore throat Card Denies chest pain, Denies lightheadedness, + mild dyspnea and Denies other (palpitations) Resp Denies cough, + mild dyspnea and +wheezing GI Denies abdominal pain, Denies melena, Denies hematochezia, Denies change in bowel habits, Denies dyspepsia and Denies nausea Denies hematuria and Denies dysuria Musc Denies abnormal gait, Denies myalgias, Denies arthralgias, Denies numbness and Denies tingling Skin/Breast Denies rash, Denies unusual bruising and Denies wounds Neuro Denies abnormal gait, Denies dizziness, Denies headache(s), Denies memory loss, Denies numbness, Denies Sensory deficit (Neuro), Denies tingling and Denies weakness Psych Denies anxiety, Denies depression and Denies memory loss Endo Denies cold intolerance, Denies fatigue, Denies heat intolerance, Denies polydipsia and Denies polyuria Bandar/Lymph Denies easy bleeding and Denies easy bruising Aller/Immun +wheezing Physical exam (Primary Care) Vital Signs: Last Vital Signs Temp 99.1 F 09/10/24 09:28 Pulse 73 09/10/24 09:28 BP 122/74 09/10/24 09:28 Pulse Ox 95 09/10/24 09:28 Oxygen Delivery Method Room Air 09/10/24 09:28 BMI result Body Mass Index 35.4 Tobacco/Smoking Status: Tobacco use Status Tobacco use date assessed 09/10/24 09/10/24 09:30 Patient Tobacco Use Status Never used Tobacco 09/10/24 09:30 Tobacco use type Cigarette 09/10/24 09:30 e-Cigarette/Vaping Use Never Used 09/10/24 09:30 PHQ-9: PHQ-9 Score PHQ-9: Total score 0 09/10/24 10:27 Depression Screening Interpretation: Negative Thrive Assessment: Date of Thrive Assessment Date Thrive assessed 09/10/24 09/10/24 09:30 Currently or been in a relationship where the following occur: No concerns reported Const Other: General: no acute distress, well developed, alert and awake Nutritional Appearance: well nourished Orientation/consciousness: patient oriented x3 HENMT Head: Yes normocephalic and Yes atraumatic Ears: hearing grossly normal bilaterally, left TM's effusion and white colored General nose exam: Normal external nose present, bilateral nares passage erythema and boggy turbinates Other: Left maxillary sinus pressure/pain Mouth: Normal oral and palatal mucosa present and moist mucous membranes Teeth and gingiva: dentition normal Throat: Yes oropharynx normal Eyes Pupils: Equal, round and reactive pupils present and Pupil accommodation reflex normal EOM: EOMs intact bilaterally Neck Neck: Yes normal visual inspection, Yes no lymphadenopathy and Yes trachea midline Thyroid: Thyroid normal Lymphatic: no lymphadenopathy noted Resp Effort & Inspection: normal respiratory effort Auscultation: clear to auscultation bilaterally Cardio Rate: regular rate Rhythm: regular rhythm Heart sounds: S1 normal heart sound present, S2 normal heart sound present, no gallops, no murmurs and no rubs GI Palpation (GI): No Abdominal aortic bruit present, Soft to palpation, nontender, No hepatosplenomegaly present and No Rebound tenderness present Auscultation: normal bowel sounds General: Yes no CVA tenderness Coding Level of Care Code Est Pt Level 4 (54724) Diagnoses Rhinosinusitis J32.9 Acute otitis media, unspecified otitis media type H66.90 Otitis media type: unspecified Chronicity: acute Cough productive of purulent sputum R05.8 Additional Codes PHQ-9 - 00925 - PHQ-9 Billing: Yes ([id number]) JULIO-7 Assessment Billing - JULIO-7 Assessment Tool: JULIO-7 Assessment 46355 ([id number]) Time Spent (min) 31 Assessment & Plan Assessment & Plan (1) Rhinosinusitis: Code(s): J32.9 - Chronic sinusitis, unspecified Category: Medical Plan: Encouraged p.o. fluids Start fluticasone nose spray 50 mcg and loratadine 10 mg daily p.r.n. (2) Otitis media: Code(s): H66.90 - Otitis media, unspecified, unspecified ear Category: Medical Qualifiers: Otitis media type: unspecified Chronicity: acute Qualified Code(s): H66.90 - Otitis media, unspecified, unspecified ear Plan: Start Augmentin 500-125 mg b.i.d. x7 days and prednisone tapered (3) Cough productive of purulent sputum: Code(s): R05.8 - Other specified cough Category: Medical Plan: Continue cough medicine OTC and increase p.o. fluids Medications: New amoxicillin-pot clavulanate 500-125 mg (Augmentin) 1 tab PO BID 7 days 14 tabs 0RF fluticasone propionate 50 mcg/actuation administer into each nostril 1 spray intranasal BID 16 grams 0RF prednisone see taper instructions 4 tabs x 2 days, then 3 tabs x 2days, 2 tabs x2 day, 1 tab x2 days =20 tabs x 8 days 10 mg PO DIRECTED 20 tabs 0RF loratadine (Allergy Relief (loratadine)) 10 mg PO DAILY PRN 30 tabs 0RF allergy symptoms
[2024-09-10 09:28] VITALS: BP 122/74; PULSE 73; TEMP 37.3; O2SAT 95; BMI 35.4
--- OUTSIDE RECORDS SUMMARY | 2024-09-10 10:11 | XMS_ITS ---
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 Generated for Fransiscai noemi/Laura/eTransmitting on:?09/10/2024 10:10 AM EST
--- OUTSIDE RECORDS SUMMARY | 2024-09-10 10:11 | XMS_ITS ---
Author Organization [facility] Naalber Shahley Address [address] [place] [address] Care Team Providers Care Electrical Controls Technician Name Role Phone Ishmael Zhou MD Primary Care Provider Kelsey Floyd Unavailable [phone] Allergies No Known Allergies REASON FOR VISIT last pcp visit 04/13/24, Painful Toe(s), Painful nail(s) aggravated by shoes causing difficulty standing/walking Medications Medication SIG (Take, Route, Fr equency, Duration) Notes Start Date End Date Status carBAMazepine Active Cyanocobalamin Activ e Omeprazole Active Citalopram Hydrobromide Active buPROPion HCl Active amLODIPine Besylate Active Ferrous Sulfate Acti ve Diaper Guard Active Social History Tobacco Use: Social History Observation Description Date Details (start date - stop date) Never Smoker NA - NA Tobacco Use/Smoking Question Answer Notes Are you a: nonsmoker Additional Findings: Tobacco Non-User Current no n-smoker Alcohol Screen Question Answer Notes Did you have a drink containing alcohol in the p ast year? No Points 0 Interpretation Negative Tobacco use other than smoking: Question Answer Notes Are you an other tobacco user? No Problems Problem Type SNOMED Code ICD Code Onset Dates Problem Status W/U Status Risk Notes Problem Acquired hammer toe of left foot (2951472966796800) Other hammer toe(s) (acquired), left foot (M20.42) Active confirmed Problem Localized, primary osteoarthritis of the ankle and/or foot (535322483) Arthritis of joint of lesser toe, left (M19.072) Active confirmed Problem [id number] Gouty arthritis of left foot (M10.9) Active confirmed Vital Signs Height 5 ft 4 in in 04/22/2024 Weight 184 lbs 04/22/2024 BMI 31.58 kg/m2 04/22/2024 Encounters Encounter Location Date Provider Diagnosis [facility] [address] [address] 04/22/2024 Kelsey Hess Pain in left toe(s) M79.675 ; Other hammer toe(s) (acquired), left foot M20.42 ; Arthritis of joint of lesser toe, left M19.072 ; Subluxation of metatarsophalangeal joint of toe, initial encounter S93.149A ; Onychomycosis B35.1 ; Pain in right toe(s) M79.674 and Gouty arthritis of left foot M10.9 Assessments Encounter Date Diagnosis (ICD Code) Assessment Notes Treatment Notes Treatment Clinical Notes Section Notes 04/22/2024 Pain in left toe(s) (ICD-10 - M79.675) 04/22/2024 Other hammer toe(s) (acquired), left foot (ICD-10 - M20.42) 04/22/2024 Arthritis of joint o f lesser toe, left (ICD-10 - M19.072) 04/22/2024 Subluxation of metatarsophalangeal joint of toe, initial encounter (ICD-10 - S93.149A) 04/22/2024 Onychomycosis (ICD-1 0 - B35.1) 04/22/2024 Pain in right toe(s) (ICD-10 - M79.674) 04/22/2024 Gouty arthritis of l eft foot (ICD-10 - M10.9) Plan Of Treatment Pending Test Test Name Order Date *Uric Acid, Serum 04/22/2024 *CBC With Differential/Platelet 04/22/20 24 ESR 04/22/2024 X ray : Foot, left 3V 04/22/2024 Next Appt Details Follow Up: prn, Reason: Procedure Notes * Category Sub-Category Detail Notes Debride Nails 1-5 Procedure: Performance of this nail treatment by a nonprofessional would put this patients foot and overall health at risk. Therefore, nail debridement was performed extensively to reduce/remove overall nail length, girth, thickness, subungual debris, and necrotic tissue, by manual and/or electrical means through the use of a nail nipper and/or dremel-type drill grinder, to a more viable healthy nail plate or bed tissue 1-5. Silver nitrate used for any petechial bleeding as necessary. Definitive antifungal treatment options have been reviewed and discussed with the patient. The patient chooses, no pharmaceutical tx - 76432 Progress Notes * Lindsay MACEDOB:1950 (73 yo F)Acc No.[id number]:04/22/2024 Progress Notes Patient:?Lindsay Mace Provider:?Kelsey Hess DPM :1950???Age:73 Y???Sex:Female D ate:04/22/2024 Address:[address] [place], [place] [address] Pcp:Ishmael Zhou MD Subjective: * Chief Complaints: * ???Last pcp visit 04/13/24Pa inful Toe(s)Painful nail(s) aggravated by shoes causing difficulty standing/walking * HPI: ???Toe pain:?Nature:?tenderness.?Location:?Left foot , 2nd toe.?Duration:?a month.?Onset/Cause:?gradual , denies trauma.?Course:?worse.?Aggravated by:?any pressure, shoes.?Treatments:?rest/alter normal daily activity, change in shoes.?Painful Nails:?Pt States Last PCP Visit:?Date:?04/13/2024 * ROS:?General/Constitutional:?Nausea?denies.?Vomiting?denies.?Hunger Thirst?denies.?Loss appetite?denies.?Chills?denies.?Fatigue?admits.?Fever?denies.?Night Sweats?denies.?Unexplained weight loss?denies.?Unexplained weight gain?admits.?HEENTM:?Dentures?denies.?Dizziness?denies.?Glasses/contacts?admits.?Retinopathy?de nies.?Blurred/double vision?denies.?TMJ?admits.?Discharge/drainage?denies.?Implants?denies.?Sore throat?denies.?Dental implants?denies.?Hard of hearing ?admits.?Difficulty chewing/swallowing/speaking?admits.?Nose bleeds?denies.?Sore mouth?denies.?Respiratory:?On Oxygen?denies.?Pneumonia/pleurisy?denies.?Bronchitis?denies.?Emphysema?denies.?C oughing?denies.?Cough blood?denies.?Shortness of breath?admits.?Wheezing?denies.?Cardiovascular:?Pacemaker?denies.?MVP?denies.?WPW?denies.?CHF?denies.?Heart attack?denies.?Septal defect?denies.?Rapid beat?denies.?Chest pain ?denies.?Atrial Fib.?denies.?Murmur/Palpitations?denies.?Gastrointestinal:?Hemorrhoids?denies.?Stomach/Abdominal pain?denies.?Dark blood stool?denies.?Irritable bowel ?denies.?Constipation?denies.?Diarrhea?denies.?Hematology:?Swelling?denies.?Clots?denies.?Varicose Veins?denies.?Bruising?admits.?Bleeding problem?admits.?Genitourinary:?Blood urine?denies.?Frequent/Painfu/urination/bladder control?denies.?Kidney stones?denies.?Infection (UTI)?denies.?Nephropathy?denies.?sex trans dis (STD)?denies.?Prostate?denies.?Musculoskeletal:?Hammertoes?admits.?Bunions?admits.?Back Pain?denies.?Muscle Cramps/ Resting?denies.?Muscle cramps / walking?denies.?Generalized aches and pains?admits.?Weakness?denies.?Integ.:?Nieto?denies.?Scars?denies.?Corns/calluses?denies.?Ingrown nails?admits.?Painful nails?denies.?Open Sores?denies.?Rashes?denies.?Neurologic:?Difficulty sleeping?admits.?Brain disorder?denies.?Numbness?denies.?Balance trouble?denies.?Confusion?denies.?Fainting/blackouts?denies.?Tingling?denies.?Tr emors?denies.? * Medical History:? * Surgical History:?gall stone s * Hospitalization/Major Diagno stic Procedure:?No Hospitalization History. * Family History:?Mother: dece ased, kidney/liver disease, diagnosed with Unspecified essential hypertension.?Father: , diagnosed with Diabetic - NIDDM, Unspecified essential hypertension, Unspecified heart disease, Other specified conditions influencing health status.? * Social History:?Tobacco Use:?Tobacco Use/Smoking?Are you a:?nonsmoker ?Additional Findings: Tobacco Non-User?Current non-smoker ?Tobacco use other than smoking?Are you an other tobacco user??No ???Drugs/Alcohol:?Drugs?Have you used drugs other than those for medical reasons in the past 12 months??No ?Alcohol Screen?Did you have a drink containing alcohol in the past year??No ?Points?0 ?Interpretation?Negative ???Miscellaneous:?Caffeine: yes, frequency:, 2-3 cups per day. ?Children: yes, 1. ?Exercise: yes, housework. ?Occupation: Retired [employer]. * Medications:?TakingOmeprazol e buPROPion HCl Citalopram Hydrobromide Cyanocobalamin carBAMazepine Ferrous Sulfate amLODIPine Besylate Diaper Guard Medication List reviewed and reconciled with the patientTaking Omeprazole Taking buPROPion HCl Taking Citalopram Hydrobromide Taking Cyanocobalamin Taking carBAMazepine Taking Ferrous Sulfate Taking amLODIPine Besylate Taking Diaper Guard Medication List reviewed and reconciled with the patient * Allergies:?N.K.D.A.yes[Aller gies Verified] Objective: * Vitals:?Ht: 5 ft 4 in, Wt:18 4, BMI:31.58, Shoe size: 10, Ht-cm: 162.56 cm, Wt- k.46 kg. * Examination: ???Orthopedic: ?MUSCLE STRENGTH:?5/5 all groups in a symmetrical fashion, B/L.?BUNION:?Medially prominent 1st MPJ , Lateral tracking 1st MPJ nonreducible , B/L.?DIGITAL DEFORMITIES:?Digital contracture, PIPJ, 2-5 B/L, incompl-reducible with WB, or to push-up test, no over, nor underlapping , there is evidence of shoe producing skin irritation , MPJ Contracture/Dorsal subluxation , T1 , T6 , Reveals pain/swelling/redness/enlargement of DIPJ , T1.?FOOTWEAR:? shoe gear properties exacerbate patients foot/toe deformity.?X-Rays - IMAGING REPORT: ?Clinical Indication(s):? Evaluate Biomechanical Deformity.?Views:? 3 views of Foot, AP, LO, LAT, , LEFT.?Findings:? normal bone and soft tissue density consistent for patients age and sex, navicular/cuneiform plantar subluxation with anterior cyma line.?Digits:? show asymmetrical joint space narrowing at the PIPJ consistent with clinical finding of hammertoe deformity.?HAV:?increased First Intermetatarsal angle and Hallux Abductus angle consistent with Bunion deformity noted , hypertrophy of the dorsal and medial 1st MTH without subchondral cyst.?Fracture:? Negative fractures identified.?Nails: ?NAILS are:?Elongated, overgrown, dystrophic, lytic, greater than 3mm thick, discolored and friable with crumbly malodorous subungual debris, with pain on palpation , TA , T5.?Vascular: ?DP PULSES(B):?3/4, B/L.?PT PULSES(B):?3/4, B/L.?CAPILLARY FILL TIME:?immediate, all digits, B/L.?TROPHIC CONDITION-TEXTURE/ELASTICITY/TURGOR/HAIR GROWTH(B):?normal, B/L.?TEMPERTURE GRADIENT(C):?normal, warm to cool, proximal to distal, B/L, B/L.?PIGMENTATION:?normal, B/L.?Neurological: ?SENSORY:?Neurological exam reveals intact sensorium, pain sensation normal, vibration sensation intact, pinprick sensation is normal in the lower extremities, Pt denies, anesthesia, burning, paresthesia, tingling, B/L.? Assessment: * Assessment: 1.?Pain in left toe(s) - M79 .675?2.?Other hammer toe(s) (acquired), left foot - M20.42 (Primary)?3.?Arthritis of joint of lesser toe, left - M19.072?4.?Subluxation of metatarsophalangeal joint of toe, initial encounter - S93.149A?5.?Onychomycosis - B35.1?6.?Pain in right toe(s) - M79.674?7.?Gouty arthritis of left foot - M10.9? Plan: * Treatment: 2.?Gouty arthritis of left f oot?LAB: *Uric Acid, Serum ?LAB: *CBC With Differential/Platelet ?LAB: ESR * Procedures:?Debride Nails 1-5:?Procedure:?Performance of this nail treatment by a nonprofessional would put this patients foot and overall health at risk. Therefore, nail debridement was performed extensively to reduce/remove overall nail length, girth, thickness, subungual debris, and necrotic tissue, by manual and/or electrical means through the use of a nail nipper and/or dremel-type drill grinder, to a more viable healthy nail plate or bed tissue 1-5. Silver nitrate used for any petechial bleeding as necessary. Definitive antifungal treatment options have been reviewed and discussed with the patient. The patient chooses, no pharmaceutical tx - 06285.? * Procedure Codes:?94482 ADDISON ORTIZ, [id number] X-RAY EXAM OF LEFT FOOT 3V, Modifiers: 26 , LT * Preventive Medicine:? ??Counseling:?Discussion:?-04: Office or other outpatient visit for the evaluation and management of a new patient, which required a medically appropriate history and/or examination and MODERATE level of DECISION MAKING for: 1 OR MORE CHRONIC PROBLEM(S) THATS WORSENING, 2 STABLE CHRONIC PROBLEMS, A NEWLY DIAGNOSED PROBLEM WITH UNCERTAIN PROGNOSIS, AN ACUTE COMPLICATED INJURY WITH MULTIPLE TREATMENT OPTIONS, OR AN ACUTE PROBLEM WITH ACCOMPANYING SYSTEMIC SYMPTOMS, THAT POSE(S) A MODERATE RISK OF MORBIDITY. THIS CONDITION MAY ALSO INCLUDE RX DRUG MANAGEMENT, OR A DECISON FOR MINOR SURGERY. The visit on the day of the encounter encompassed interpreting the data and educating the patient as to the nature of their condition, treatment options available according to their individual PMH, meds, allergies, and overall health/living conditions, as well as any potential risks or complications that may occur from a failure to adhere to, and participate in, the recommended course of therapy. The discussion included a complete verbal, and/or written explanation of the examination results, any x-rays taken, the proposed diagnosis, and outline of the treatment plan. A schedule for future care needs was also explained. The patient verbalized an understanding of the instructions at this time and agreed to be an active participant in their treatment. If the patient should think of any questions or concerns after the visit, I have encouraged the patient to call the office.?Digital Surgery:?Digital surgery was discussed with the patient, including the risks of surgery(below), vs not having surgery (persistent pain, deformity, risk for skin ulceration/infection, loss of toe), the potential surg complications, the anesthesia, and the usual post-op course. No guarentees were given. We discussed the potential procedure complications including, but not limited to: pain, swelling, bleeding, scarring, numbness, infection, delayed/non healing, floppy/unstable/shorthened toe, recurrence, failure of the procedure, overcorrection leading to plantarflexed/downward positioned toe, recurrence, need for further surgery, as well as the possibility for loss of the toe itself. We discussed the use of local anesthesia, and the usual post-op course for healing. No guarentees were given. The patient verbally indicated a full understanding of the above conversation, and any other of their questions were answered to their satisfaction. Alternatives to the procedure were also discussed, including conservative care. I also discussed the usual post-operative course and gave no guarantees regarding outcome.?Digital Treatment:?I explained to the patient the possible etiologies of Hammertoes, including genetics/foot type/shoegear/activity level/exercise routine and the risks/benefits of all the different treatment options for their pain including: No treatment at all, Rest, Ice, New/supportive/wider/deeper Shoegear, Digital Padding/Strapping/Taping/Bracing/Gel protective sleeves, Foot/Ankle AFO Bracing, Stretching exercises, Deep Tissue Massage, Arch support/shoe inserts with splay metatarsal padding, and Custom orthoses. I insisted that any digital devices be removed daily and not worn overnight for safety. The patient is to carefully examine the toes daily for any skin irritation while using any splinting or padding device. The advantages and disadvantages of each option were discussed and the patients questions re: shoegear, padding, custom vs prefabricated inserts, activity level, and consistency in home treatment regimens for optimal success were answered to their verbally confirmed satisfaction.?Gout:?I explained to the patient the possible etiologies for Gout, including genetic, excess dietary protein, excess dietary sugar, alcohol, diuretic medications, dehydration, and/or previous surgery. An information sheet re: the foods to enjoy as well as avoid was dispensed and detailed at the time of visit. We discussed the risks/benefits of all the different treatment options for Gout including: No treatment at all, Rest, Ice, NSAIDs(only if well tolerated after meals), Oral steroids, Colchicine, New/supportive Shoegear, Foot/Ankle AFO Bracing, Arch support/shoe inserts, Custom orthoses, Topical analgesics including Aspercream/Voltaren gel/Custom compounded combination therapy, and Dietary modification. Advantages and disadvantages of each option were discussed and the patients questions re: shoegear, custom vs prefabricated inserts, activity level, PO vs Topical medications (and their respective potential complications/drug interactions/side effects including the possible interaction with statin medications ), diet, and consistency in home treatment regimens for optimal success were answered to their verbally confirmed satisfaction, A serum Uric acid level was ordered, ESR lab ordered.?Shoe Gear Counseling:?The patient and I reviewed the types of shoes they should be wearing. My recommendation included obtaining a well-fitted shoe with a good supportive, non-foldable nor twistable sole, plenty of toe/room for the forefoot, and proper arch support. Based on todays examination, I recommended the patient look for new shoes, by having their feet professionally measured. We discussed that generally the best time of the day for a shoe fitting is the afternoon. Different shoes types and brands to best match the patients occupation and vocation were discussed. Specific brand selection will be up to the patient, their individual foot condition/deformities, and fit. The patient and I reviewed the standard new shoe break in period by wearing them for a few hours a day while checking for redness or sores as wear time is increased. The patient verbally confirmed to understanding the information discussed.?X-rays:?Discussed and reviewed the X-rays with the patient. We discussed how the findings relate to the patients symptoms/complaints. Answered any and all questions..? * Follow Up:?prn * Images: * Sign off status: Completed true * Provider:?Kelsey Hess DPM Date:?08/2023 Generated for Lorna franklin/Laura/eTransmitting on:?09/10/2024 10:10 AM EST History and Physical Notes * HPI (History of Present Illness) Category Sub-Category Detail Notes Category Not es Toe pain Nature: tenderness Location: Left foot , 2nd toe Duration: a month Onset/Cause: gradual , denies tra alan Course: worse Aggravated by: any pressure, shoes Treatments: rest/alter normal da sonia activity, change in shoes Painful Nails Pt States Last PCP Visit: Date:: 04/13/2024 Examination Category Sub-Category Detail Notes Category Not es Neurological SENSORY: Neurological exa m reveals intact sensorium, pain sensation normal, vibration sensation intact, pinprick sensation is normal in the lower extremities, Pt denies, anesthesia, burning, paresthesia, tingling, B/L Orthopedic BUNION: Medially promine nt 1st MPJ , Lateral tracking 1st MPJ nonreducible , B/L FOOTWEAR: shoe gear properties exacerbate patients foot/toe deformity DIGITAL DEFORMITIES: Digital contracture , PIPJ, 2-5 B/L, incompl-reducible with WB, or to push-up test, no over, nor underlapping , there is evidence of shoe producing skin irritation , MPJ Contracture/Dorsal subluxation , T1 , T6 , Reveals pain/swelling/redness/enlargement of DIPJ , T1 MUSCLE STRENGTH: 5/5 all groups in a symmetrical fashion, B/L Vascular DP PULSES (B): 3/4, B/L PT PULSES (B): 3/4, B/L CAPILLARY FILL TIME: immediate, all digi ts, B/L TEMPERTURE GRADIENT (C): normal, warm to cool, proximal to distal, B/L, B/L TROPHIC CONDITION-TEXTURE/ELASTICITY/TURGOR/HAIR GROWTH (B): normal, B/L PIGMENTATION: normal, B/L Nails NAILS are: Elongated, overg rown, dystrophic, lytic, greater than 3mm thick, discolored and friable with crumbly malodorous subungual debris, with pain on palpation , TA , T5 X-Rays - IMAGING REPORT Findings: normal b one and soft tissue density consistent for patients age and sex, navicular/cuneiform plantar subluxation with anterior cyma line Fracture: Negative fractures i dentified Digits: show asymmetrical reilly int space narrowing at the PIPJ consistent with clinical finding of hammertoe deformity HAV: increased First Inte rmetatarsal angle and Hallux Abductus angle consistent with Bunion deformity noted , hypertrophy of the dorsal and medial 1st MTH without subchondral cyst Views: 3 views of Foot, AP, LO, LAT, , LEFT Clinical Indication(s): Evaluate Biomech anical Deformity
--- OUTSIDE RECORDS SUMMARY | 2024-09-10 10:11 | XMS_ITS | Patient Health Record ---
Author Organization [facility] Zuleika shereen ShahGary Address [address] [place] [address] Care Team Providers Care Marketing Intelligence Analyst Name Role Phone Abelardo ROSALES, Ishmael Primary Care Provider Kelsey Floyd Unavailable [phone] Allergies No Known Allergies Reason For Referral No Information Medications Medication SIG (Take, Route, Fr equency, Duration) Notes Start Date End Date Status carBAMazepine Active Cyanocobalamin Activ e amLODIPine Besylate Active Ferrous Sulfate Acti ve Omeprazole Active Citalopram Hydrobromide Active buPROPion HCl Active Diaper Guard Active Social History Tobacco Use: [...] Problem Acquired hammer toe of left foot (1631856249658645) Other hammer toe(s) (acquired), left foot (M20.42) Active confirmed Problem 2139028410573284 Gouty arthritis of left foot (M10.9) Active confirmed Problem Localized, primary osteoarthritis of the ankle and/or foot (867428516) Arthritis of joint of lesser toe, left (M19.072) Active confirmed Vital Signs Height 5 ft 4 in in 04/22/2024 Weight 184 lbs 04/22/2024 BMI 31.58 kg/m2 04/22/2024 Encounters Encounter Location Date Provider Diagnosis [facility] [address] 04/22/2024 Kelsey Hess Pain in left toe(s) M79.675 ; Other hammer toe(s) (acquired), left foot M20.42 ; Arthritis of joint of lesser toe, left M19.072 ; Subluxation of metatarsophalangeal joint of toe, initial encounter S93.149A ; Onychomycosis B35.1 ; Pain in right toe(s) M79.674 and Gouty arthritis of left foot M10.[address] [facility] [address] 01/20/2024 Kelsey Hess Assessments Encounter Date Diagnosis (ICD Code) Assessment [...] X ray : Foot, left 3V 04/22/2024 Insurance Providers Payer Name Payer Address Payer Phone Subscriber Number Group Number Insured Name Patient Relationship to Insured Coverage Start Date Coverage End Date [employer] [address] [place] [phone] [id number] Lindsay Mace Self - patient is the insured Medical (General) History Medical History History ICD Code Anemia Arthritis Knee Pain Cataracts Depression Headaches/Migraines High blood pressure Kidney disease Osteoporosis Psychiatric disorder Sciatica Mumps Chicken pox Surgical History Surgery Date(Month/Year) gall stones
== END 2024-09-10 10:37 | disposition home or self-care (01) ==
PROVIDERS: PCP Internal Medicine
DX: J32.9 Chronic sinusitis, unspecified (principal); H66.90 Otitis media, unspecified, unspecified ear; R05.8 Other specified cough

== ENCOUNTER → 2024-09-10 09:26 | Outpatient (BNVA) | payer MEDICARE, SELFPAY | PROVIDERS: PCP Internal Medicine | DX: J32.9 Chronic sinusitis, unspecified (principal); H66.90 Otitis media, unspecified, unspecified ear; R05.8 Other specified cough | CPT/HCPCS: 96127; 99212 ==

== ENCOUNTER 2024-10-01 14:25 | Outpatient (REF) | payer MEDICARE, SELFPAY ==
[2024-10-01 14:43] LABS: MANUAL DIFF FLAG NO
[2024-10-01 15:09] LABS: Basophils Absolute Auto 0.1 X10*3/uL (0.0-0.2); Basophils Percent Auto 0.6 % (0-2); Eosinophils Absolute Auto 0.2 X10*3/uL (0.0-0.4); Eosinophils Percent Auto 2.4 % (0-4); Hemoglobin 12.1 g/dl (12.0-16.0); Imm Gran Abs Auto 0.02 X10*3/uL (0.00-0.03); Imm Gran Pct Auto 0.3 % (0.0-0.4); Lymphocytes Percent Auto 25.5 % (20-40); Mean Corpuscular HGB Conc 31.8 g/dl (31.0-35.0); Mean Corpuscular Hemoglobin 26.5 pg (27.0-33.0); Mean Corpuscular Volume 83.2 fL (80.0-98.0); Monocytes Absolute Auto 0.6 X10*3/uL (0.1-1.2); Neutrophils Percent Auto 63.2 % (45-73); Platelet Count 299 X10*3/uL (160-400); Red Blood Count 4.57 X10*6/uL (4.20-5.50)
[2024-10-01 15:19] LABS: Estimated Average Glucose 131 mg/dL; Hemoglobin A1c % 6.2 % (<6.0)
[2024-10-01 17:05] LABS: Alanine Aminotransferase 32 U/L (0-31); Albumin Level 4.1 g/dL (3.5-5.0); Alkaline Phosphatase 73 U/L (39-117); Anion Gap 16 (12-20); Aspartate Amino Transferase 33 U/L (5-31); Bilirubin Total 0.2 mg/dL (0.0-1.0); Blood Urea Nitrogen 17 mg/dL (9-16); Calcium 9.4 mg/dL (8.4-10.2); Carbon Dioxide 22 mmol/L (22-29); Chloride 109 mmol/L (96-108); Cholesterol 203 mg/dL (<200); Estimated Glomerular Filt Rate 55; Glucose Random 112 mg/dL (60-115); HDL Cholesterol 61 mg/dL (>40); LDL Cholesterol Calculated 104 mg/dL (<100); Potassium 4.3 mmol/L (3.3-5.1); Sodium 143 mmol/L (135-145); Total Protein 7.8 g/dL (6.5-8.0); Triglycerides 191 mg/dL (<150)
[2024-10-01 17:21] LABS: Thyroid Stimulating Hormone 7.49 uIU/mL (0.32-4.0)
--- OUTSIDE RECORDS SUMMARY | 2024-10-01 18:16 | XMS_ITS ---
Author Organization [facility] Naalber Shahley Address [address] [place] [address] Care Team Providers Care Coloring Room Man Name Role Phone Ishmael Zhou MD Primary Care Provider Kelsey Floyd Unavailable [phone] Allergies No Known Allergies REASON FOR VISIT [...] Problem Acquired hammer toe of left foot (0669530160689808) Other hammer toe(s) (acquired), left foot (M20.42) Active confirmed Problem Localized, primary osteoarthritis of the ankle and/or foot (544376099) Arthritis of joint of lesser toe, left (M19.072) Active confirmed Problem 2949788751893719 Gouty arthritis of left foot (M10.9) Active confirmed Vital Signs Height 5 ft 4 in in 04/22/2024 Weight 184 lbs 04/22/2024 BMI 31.58 kg/m2 04/22/2024 Encounters Encounter Location Date Provider Diagnosis [facility] [address] [address] 04/22/2024 Kelsey Hess Pain in left toe(s) [...] use of a nail nipper and/or dremel-type notch grinder, to a more viable healthy nail plate or bed tissue 1-5. Silver nitrate used for any petechial bleeding as necessary. Definitive antifungal treatment options have been reviewed and discussed with the patient. The patient chooses, no pharmaceutical tx - 66767 Progress Notes * Lindsay MACEDOB:1950 (73 yo F)Acc No.[id number]:04/22/2024 Progress Notes Patient:?Lindsay Mace Provider:?Kelsey Hess DPM :1950???Age:73 Y???Sex:Female D ate:04/22/2024 Address:[address] [place], [place] [address] Pcp:Ishmael Zhou MD Subjective: * Chief Complaints: [...] use of a nail nipper and/or dremel-type notch grinder, to a more viable healthy nail plate or bed tissue 1-5. Silver nitrate used for any petechial bleeding as necessary. Definitive antifungal treatment options have been reviewed and discussed with the patient. The patient chooses, no pharmaceutical tx - 15719.? * Procedure Codes:?07344 ADDISON ORTIZ, [id number] X-RAY EXAM OF LEFT FOOT 3V, Modifiers: [...] Hess DPM Date:?08/2023 Generated for Lorna franklin/Laura/eTransmitting on:?10/01/2024 06:16 PM EDT History and Physical Notes * HPI (History [...]
--- OUTSIDE RECORDS SUMMARY | 2024-10-01 18:17 | XMS_ITS | Patient Health Record ---
Author Organization [facility] Zuleika shereen ShahGary Address [address] [place] [address] Care Team Providers Care Plumbing Instructor Name Role Phone Abelardo ROSALES, Ishamel Primary Care Provider Kelsey Floyd Unavailable [phone] Allergies No Known Allergies Reason For Referral [...] Problem Acquired hammer toe of left foot ([id number]) Other hammer toe(s) (acquired), left foot (M20.42) Active confirmed Problem [id number] Gouty arthritis of left foot (M10.9) Active confirmed Problem Localized, primary osteoarthritis of the ankle and/or foot ([id number]) Arthritis of joint of lesser toe, left (M19.072) Active confirmed Vital Signs Height 5 ft 4 in in 04/22/2024 Weight 184 lbs 04/22/2024 BMI 31.58 kg/m2 04/22/2024 [facility]counters [facility]counter [facility] Date [facility] [address] [facility]/22/[facility]24 Kelsey Hess Pain in left toe(s) M79.675 ; Other hammer toe(s) (acquired), left foot M20.42 ; Arthritis of joint of lesser toe, left M19.072 ; Subluxation of metatarsophalangeal joint of toe, initial encounter S93.149A ; Onychomycosis B35.1 ; Pain in right toe(s) M79.674 and Gouty arthritis of left foot M10.9 [facility] [address] 01/20/2024 Kelsey Hess Assessments Encounter Date Diagnosis [...] Date Coverage End Date [employer] [id number] [place] [phone] [id number] Lindsay Mace Self - patient is the insured Medical (General) History Medical History History ICD Code Anemia Arthritis Knee Pain Cataracts Depression Headaches/Migraines High blood pressure Kidney disease Osteoporosis Psychiatric disorder Sciatica Mumps Chicken pox Surgical History Surgery Date(Month/Year) gall stones
--- OUTSIDE RECORDS SUMMARY | 2024-10-01 18:17 | XMS_ITS ---
Author Organization [facility] Address [address] [place] [address] Care Team Providers Care Plastering Supervisor Name Role Phone Ishmael Zhou MD Primary Care Provider Unavaila Kelsey Leach [phone] REASON FOR VISIT AUTOMATION ANALYST PPWK Entered Encounters Encounter Location Date Provider Diagnosis [facility] [address] [place] [address] 01/20/2024 Kelsey Hess Plan Of Treatment No Information Progress Notes * RODRILindsayDOB:1950 (73 yo F)Acc No.[id number]:01/20/2024 Patient:?Lindsay Mace :1950???Age:73 Y???Sex:Female Address:[address] [place] [address], [address] , [place], [place], * true * Date:? Generated for Printi ng/Fageorgeg/eTransmitting on:?10/01/2024 06:16 PM EDT
== END 2024-10-01 14:26 | disposition home or self-care (01) ==
LOC: HO.LAB 14:25
PROVIDERS: PCP Internal Medicine; Visit Provider Nurse Practitioner Psychiatric/Mental Health
DX: Z79.899 Other long term (current) drug therapy (principal)
CPT/HCPCS: 36415; 80053; 80061; 83036; 84443; 85025

== ENCOUNTER 2024-10-12 11:14 | Outpatient (AMB) | payer MEDICARE, SELFPAY ==
[2024-10-12 11:17] VITALS: BP 126/82; PULSE 81; O2SAT 97; BMI 35.6
--- NOTE | 2024-10-12 11:17 | MHC.PC.OV ---
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 Required: No Accompanied by: Self / Same As Patient Allergies No Known Allergies [No Known Allergies*] Allergy (Verified 10/12/24 11:53) Medication List - Last Reconciled 10/12/24 by SANDI Crenshaw amlodipine 5 mg PO DAILY amoxicillin-pot clavulanate 500-125 mg (Augmentin) 1 tab PO BID 7 days bupropion HCl XL 300 mg PO DAILY carbamazepine 200 mg PO BID citalopram 20 mg PO DAILY cyanocobalamin (vitamin B-12) 1,000 mcg sublingual DAILY cyanocobalamin (vitamin B-12) 1,000 mcg sublingual DAILY diaper,brief,adult,disposable (Jay Choice Comfort Protect Adult Diaper X-Large) As directed ferrous sulfate 325 mg PO DAILY fluticasone propionate 50 mcg/actuation 1 spray intranasal BID gabapentin 600 mg PO BID loratadine (Allergy Relief (loratadine)) 10 mg PO DAILY PRN mirtazapine 7.5 mg PO BEDTIME olanzapine 7.5 mg PO DAILY omeprazole 40 mg PO DAILY prednisone 10 mg PO DIRECTED [pull ups twice per day as needed] vibegron (Gemtesa) 75 mg PO DAILY 30 days Tobacco use date assessed: 10/12/24 Fall risk assessment: No Falls in past year Last assessed Fall Risk: 10/12/24 Dental Screening Dental Screen Date: 10/12/24 Did you have a dental visit in the last 12 months?: No Did you have a dental problem in the last 6 months where you did not have access to dental care?: No Was dental information given to patient?: Patient has dentist HPI DORENE DR Zhou/ 6 month f/u HPI Details Patient is a 74-year-old female with significant past medical history of back pain, erosive esophagitis, esophageal stricture Patient reports that her psychiatrist Dr. Allison vasquez labs last and it was noted that her TSH was elevated She reports that she was told in the past that she has to holds in her neck by ENT about [address] Noe who has retired Resident reports that she is still feels pain in her bilateral knee and have difficulty going upstairs Reports lower back pain as well and unable to sit for more than an hour The patient reports that she has seen Oncology and is receiving B12 injections She denies any shortness of breath or chest pain but reports that she feels fatigued. The patient is also on ferrous sulfate 325 mg daily She reports that she was given cortisone shots in the knees before about 3 years ago Reports that she had to have a cortisone shot in her back as well and was unable to walk prior to this shot [facility] Medical History (Updated 10/19/24 @ 23:05 by SANDI Crenshaw) Herniation of left side of L4-L5 intervertebral disc Bilateral primary osteoarthritis of knee Encounter for initial annual wellness visit (AWV) in Medicare patient Schizophrenia Surgical History History of esophagogastroduodenoscopy (EGD) Hx of colonoscopy History of laparoscopic cholecystectomy History of cardiac catheterization History of cataract surgery History of throat surgery History of bladder surgery Family History Father Past heart attack Diabetes Mother Past heart attack Paternal Grandmother Stomach cancer Other Mental health disorder Social History Household Members: None Housing: Apartment Are you a primary healthcare administration internship to a significant other at home: No Do you presently have visiting nurse or other home services: No Alcohol intake: never Patient Tobacco Use Status: Never used Tobacco Tobacco use type: Cigarette e-Cigarette/Vaping Use: Never Used Second Hand Smoke Exposure: No service: No Current occupational status: disabled Cognitive needs: Yes (cane) Hearing needs: No Vision needs: No Questionnaire PHQ-9 Over the last 2 weeks, how often have you been bothered by any of the following problems? 1. Little interest or pleasure in doing things: not at all 2. Feeling down, depressed, or hopeless: not at all 3. Trouble falling or staying asleep, or sleeping too much: not at all 4. Feeling tired or having little energy: not at all 5. Poor appetite or overeating: not at all 6. Feeling bad about yourself - or that you are a failure or have let yourself or your family down: not at all 7. Trouble concentrating on things, such as reading the newspaper or watching television: not at all 8. Moving or speaking so slowly that other people could have noticed. Or the opposite - being so fidgety or restless that you have been moving around a lot more than usual: not at all 9. Thoughts that you would be better off or of hurting yourself in some way: not at all Total score: 0 Depression Screening Interpretation: Negative Depression Screening Done: Yes Source: Developed by Drs. Jean Marie Granda, Poonam Mcclain, Brennan Duran and colleagues, with an educational leah from [email or web address]. Thrive Questionnaire Date Thrive assessed: 10/12/24 I am a: Patient What is your living situation today?: I have a steady place to live Within the past 12 months, did the food you bought not last and you didn't have the money to get more?: Never true Within the past 12 months, did you worry whether your food would run out before you got money to buy more?: Never true Do you have trouble paying for medicines?: No Do you have trouble getting transportation to medical appointments?: No Do you have trouble paying your heating and electricity bill?: No Do you have trouble taking care of your child, family member or friend?: No Do you have trouble with day-to-day activities such as bathing, preparing meals, shopping, managing finances, etc.?: No Are you currently unemployed and looking for a job?: No Are you interested in more education?: No Please select the resources that you would like help with: None Currently or been in a relationship where the following occur: No concerns reported THRIVE Score: 0 AUDIT C Alcohol Use Questionnaire (AUDIT-C) 1. How often do you have a drink containing alcohol?: Never Total Score: 0 Score Reviewed/Action Taken: Yes JULIO-7 AMB Questionnaire JULIO-7 Date JULIO - 7 assessed: 10/12/24 Feeling nervous, anxious, or on edge: 0 = Not at all Not being able to stop or control worryin = Not at all Worrying too much about different things: 0 = Not at all Trouble relaxin = Not at all Being so restless that it is hard to sit still: 0 = Not at all Becoming easily annoyed or irritable: 0 = Not at all Feeling afraid as if something awful might happen: 0 = Not at all Total JULIO-7 score (0-4 normal; 5-9 mild; 10-14 moderate; 15-21 severe): 0 Source: Developed by Drs. Jean Marie Granda, Poonam Mcclain, Brennan Duran and colleagues, with an educational leah from [email or web address]. Review of Systems Const Denies headache(s) Eyes Denies loss of vision ENT Denies vertigo, Denies dizziness, Denies headache(s) and Denies sore throat Card Denies chest pain, Denies leg edema and Denies lightheadedness Resp Denies cough, Denies hemoptysis and Denies wheezing GI Denies abdominal pain, Denies melena, Denies constipation, Denies diarrhea and Denies vomiting Denies urinary frequency, Denies dysuria and Denies urinary urgency Musc Reports back pain, Reports arthralgias (Bilateral knees), Denies joint swelling, Denies numbness and Denies tingling Neuro Denies Abnormal speech present, Denies behavioral changes, Denies vertigo, Denies dizziness, Denies headache(s), Denies loss of vision, Denies memory loss, Denies numbness and Denies tingling Psych Denies anxiety, Denies behavioral changes, Denies depression, Denies memory loss and Denies panic attacks Bandar/Lymph Denies easy bleeding and Denies easy bruising Aller/Immun Denies wheezing Physical exam (Primary Care) Vital Signs: Last Vital Signs Pulse 81 10/12/24 11:17 BP 126/82 10/12/24 11:17 Pulse Ox 97 10/12/24 11:17 Oxygen Delivery Method Room Air 10/12/24 11:17 BMI result Body Mass Index 35.6 Tobacco/Smoking Status: Tobacco use Status Tobacco use date assessed 10/12/24 10/12/24 11:22 Patient Tobacco Use Status Never used Tobacco 10/12/24 11:22 Tobacco use type Cigarette 10/12/24 11:22 e-Cigarette/Vaping Use Never Used 10/12/24 11:22 PHQ-9: PHQ-9 Score PHQ-9: Total score 0 10/12/24 11:55 Depression Screening Interpretation: Negative Thrive Assessment: Date of Thrive Assessment Date Thrive assessed 10/12/24 10/12/24 11:22 Currently or been in a relationship where the following occur: No concerns reported Const General: healthy appearing, no acute distress, alert and awake Nutritional Appearance: well nourished Orientation/consciousness: oriented to person, oriented to place and oriented to time HENMT Ears: TM's normal bilaterally General nose exam: Normal nasal mucous membranes and turbinates present Eyes Conjunctivae: conjunctivae normal Sclerae: sclerae normal Pupils: Equal, round and reactive pupils present Neck Neck: Yes no lymphadenopathy and Yes no JVD Thyroid: Thyroid normal Carotids: no bruits Resp Effort & Inspection: normal respiratory effort and not tachypneic Auscultation: no crackles, no rales, no rhonchi and no wheezes Cardio Rate: regular rate Rhythm: regular rhythm Heart sounds: no murmurs and normal S1 and S2 GI Palpation (GI): Soft to palpation, nontender, no hepatomegaly and no splenomegaly Auscultation: normal bowel sounds General: Yes no CVA tenderness Back/Spine/Pelvis Back: no CVA tenderness Skin General skin exam: no rashes or lesions noted and dry skin Neuro General: oriented to person, oriented to place and oriented to time Cranial nerves: Yes Equal, round and reactive pupils present Speech: No Abnormal speech present Gait exam (Neuro): Normal gait present Motor exam (neuro): no tremor noted Extrem Right upper extremity: full ROM Left upper extremity: full ROM Right lower extremity: full ROM and knee Details: normal ROM; no tenderness and no swelling; no edema Left lower extremity: full ROM and knee Details: normal ROM; no tenderness and no swelling; no edema Psych Mental Status: mental status grossly normal Speech and movement: Normal speech and movement present Affect: normal affect Attitude: cooperative Thought process: Normal thought process present Coding Level of Care Code Est Pt Level 4 (29530) Diagnoses Chronic fatigue R53.82 Fatigue type: chronic, unspecified Anemia, unspecified type D64.9 Anemia type: unspecified type Hypertension, unspecified type I10 Hypertension type: unspecified Dyspnea, unspecified type R06.00 Dyspnea type: unspecified Gastroesophageal reflux disease with esophagitis without hemorrhage K21.00 Esophagitis presence: with esophagitis Esophagitis bleeding: without hemorrhage Chronic idiopathic constipation K59.04 Chronic bilateral low back pain without sciatica M54.50; G89.29 Back pain location: low back pain Chronicity: chronic Back pain laterality: bilateral Sciatica presence: without sciatica Overactive bladder N32.81 Schizophrenia, unspecified type F20.9 Schizophrenia type: unspecified Time Spent (min) 43 Assessment & Plan Assessment & Plan (1) Fatigue: Code(s): R53.83 - Other fatigue Category: Medical Qualifiers: Fatigue type: chronic, unspecified Qualified Code(s): R53.82 - Chronic fatigue, unspecified Plan: Multifactorial the patient has a chronic anemia +sedentary lifestyle. We will continue to treat the anemia an encourage patient to be as active as tolerated. This is not easy for pain due to bilateral knee and lower back pain. (2) Anemia: Code(s): D64.9 - Anemia, unspecified Category: Medical Qualifiers: Anemia type: unspecified type Qualified Code(s): D64.9 - Anemia, unspecified Plan: Multifactorial anemia, and B12 deficiency, iron-deficiency and ACD. Patient is currently being treated by Hematology would B12 shots, continues ferrous sulfate 325 mg daily (3) Hypertension: Code(s): I10 - Essential (primary) hypertension Category: Medical Qualifiers: Hypertension type: unspecified Qualified Code(s): I10 - Essential (primary) hypertension Plan: Optimized. Continue amlodipine 5 mg daily. Reinforced low-sodium diet (4) Dyspnea: Comment: Stable Code(s): R06.00 - Dyspnea, unspecified Category: Medical Qualifiers: Dyspnea type: unspecified Qualified Code(s): R06.00 - Dyspnea, unspecified Plan: Stable. Suspected to be due to anemia and sedentary lifestyle. Patient expressed improvement. (5) GERD (gastroesophageal reflux disease): Code(s): K21.9 - Gastro-esophageal reflux disease without esophagitis Category: Medical Qualifiers: Esophagitis presence: with esophagitis Esophagitis bleeding: without hemorrhage Qualified Code(s): K21.00 - Gastro-esophageal reflux disease with esophagitis, without bleeding Plan: Reinforced dietary restriction. Continue omeprazole 40 mg daily (6) Chronic idiopathic constipation: Code(s): K59.04 - Chronic idiopathic constipation Category: Medical Plan: Multifactorial sedentary lifestyle, iron supplement due to anemia. Encouraged fluids intake and fiber and diet. Activity as tolerated (7) Back pain: Code(s): M54.9 - Dorsalgia, unspecified Category: Medical Qualifiers: Back pain location: low back pain Chronicity: chronic Back pain laterality: bilateral Sciatica presence: without sciatica Qualified Code(s): M54.50 - Low back pain, unspecified; G89.29 - Other chronic pain Plan: Avoid bed rest (including sitting in bed) and to simply limit painful activities; improvement usually occurs within a few weeks May use cool packs; may alternate cold and hot packs Exercises a santana (e.g., walking, swimming, cycling) as soon as possible, starting with 5-10 min and walk-in up to 20-30 minute q.day Abdominal core and back strengthening exercises may help to prevent future problems Continue gabapentin 600 mg b.i.d. (8) Overactive bladder: Code(s): N32.81 - Overactive bladder Category: Medical Plan: Continue Gemtesa 75 mg daily Follow up with Urology as scheduled (9) Schizophrenia: Code(s): F20.9 - Schizophrenia, unspecified Category: Medical Qualifiers: Schizophrenia type: unspecified Qualified Code(s): F20.9 - Schizophrenia, unspecified Plan: Encouraged CBT Continue Wellbutrin 200 mg daily, citalopram 20 mg daily, olanzapine 7.5 mg daily and mirtazapine 7.5 mg at bedtime Follow up with Psychiatry as scheduled Orders: Orders TSH reflex Free T4 10/13/24 R79.89 - Other specified abnormal findings of blood chemistry Iodine, Serum/Plasma 10/13/24 R79.89 - Other specified abnormal findings of blood chemistry Free T4 (Free Thyroxine) 10/13/24 R79.89 - Other specified abnormal findings of blood chemistry Medications: Refilled fluticasone propionate 50 mcg/actuation administer into each nostril 1 spray intranasal BID 16 grams 3RF R09.81 - Nasal congestion
== END 2024-10-12 12:20 | disposition home or self-care (01) ==
LOC: HO.HMCH 11:14
PROVIDERS: PCP Internal Medicine
DX: R53.82 Chronic fatigue, unspecified (principal); D64.9 Anemia, unspecified; I10 Essential (primary) hypertension; R06.00 Dyspnea, unspecified; K21.00 Gastro-esophageal reflux disease with esophagitis, without bleeding; K59.04 Chronic idiopathic constipation; M54.50 Low back pain, unspecified; G89.29 Other chronic pain; N32.81 Overactive bladder; F20.9 Schizophrenia, unspecified

== ENCOUNTER → 2024-10-12 11:14 | Outpatient (BNVA) | payer MEDICARE, SELFPAY | PROVIDERS: PCP Internal Medicine | DX: D64.9 Anemia, unspecified (principal); R53.82 Chronic fatigue, unspecified; I10 Essential (primary) hypertension; R06.00 Dyspnea, unspecified; K21.00 Gastro-esophageal reflux disease with esophagitis, without bleeding; K59.04 Chronic idiopathic constipation; M54.50 Low back pain, unspecified; G89.29 Other chronic pain; F20.9 Schizophrenia, unspecified; N32.81 Overactive bladder | CPT/HCPCS: 99212 ==

== ENCOUNTER 2024-10-13 11:44 | Outpatient (REF) | payer MEDICARE, SELFPAY ==
[2024-10-13 12:50] LABS: Free T4 (Free Thyroxine) 0.84 ng/dL (0.71-1.85); TSH reflex Free T4 3.71 uIU/mL (0.32-4.0)
[2024-10-16 10:23] LABS: Iodine, Serum/Plasma 57 mcg/L (52-109)
== END 2024-10-13 11:45 | disposition home or self-care (01) ==
LOC: HO.LAB 11:44
DX: R94.6 Abnormal results of thyroid function studies (principal)
CPT/HCPCS: 36415; 83789; 84439; 84443

== ENCOUNTER 2024-11-25 13:30 | Outpatient (AMB) | payer MEDICARE, SELFPAY ==
--- NOTE | 2024-11-25 13:34 | A.OFFVIS_ITS ---
Intake Visit Reasons: 3m follow up Intake Note: Patient presents today for follow up on: OAB and incontinence Urology Medications: Gemtesa Blood Thinner:none PVR: 48ml's Fitting Room Attendant Required: No Accompanied by: Self / Same As Patient Allergies No Known Allergies [No Known Allergies*] Allergy (Verified 11/25/24 14:41) Medication List - Last Reconciled 11/25/24 by VERONIQUE Miranda amlodipine 5 mg PO DAILY bupropion HCl XL 300 mg PO DAILY carbamazepine 200 mg PO BID citalopram 20 mg PO DAILY cyanocobalamin (vitamin B-12) 1,000 mcg sublingual DAILY cyanocobalamin (vitamin B-12) 1,000 mcg sublingual DAILY diaper,brief,adult,disposable (Pes[employer]um Choice Comfort Protect Adult Diaper X- Large) As directed ferrous sulfate 325 mg PO DAILY fluticasone propionate 50 mcg/actuation 1 spray intranasal BID gabapentin 600 mg PO BID loratadine (Allergy Relief (loratadine)) 10 mg PO DAILY PRN mirtazapine 7.5 mg PO BEDTIME olanzapine 7.5 mg PO DAILY omeprazole 40 mg PO DAILY [pull ups twice per day as needed] vibegron (Gemtesa) 75 mg PO DAILY 30 days HPI Comments Details: Lindsay is a very pleasant 74-year-old female patient of Dr. Zhou. She has a past medical history of schizophrenia. She presents to the office today for follow-up of her mixed urinary incontinence. In discussion with the patient today she reports to be doing and feeling well. She reports feeling Gemtesa has been extremely helpful in episodes of urinary urgency, urinary frequency, and nocturia she had been experiencing. Patient previously trialed Myrbetriq with no improvement. Previous workup has included a retroperitoneal ultrasound 05/14 noting bilateral benign Bosniak class 1 peripelvic renal cysts left greater than right which require no additional follow-up imaging per radiology report. She does have a previous history of trialing pelvic floor therapy with no improvement in her lower urinary tract symptoms. She also has a previous history of 1 vaginal of her daughter over 40 years ago. She reports labor was fast and her daughter was an average size babies. She denies hematuria, dysuria, foul smelling urine, changes to urinary stream, flank pain, fever, and or chills. In office urinalysis results reviewed with the patient today. PVR 48ml's. We discussed possible near future in office cystoscopy and or urodynamics for further assessment evaluation. She otherwise offers no other issues or concerns at this time. [facility] Medical History Herniation of left side of L4-L5 intervertebral disc Bilateral primary osteoarthritis of knee Encounter for initial annual wellness visit (AWV) in Medicare patient Schizophrenia Surgical History History of esophagogastroduodenoscopy (EGD) Hx of colonoscopy History of laparoscopic cholecystectomy History of cardiac catheterization History of cataract surgery History of throat surgery History of bladder surgery Family History Father Past heart attack Diabetes Mother Past heart attack Paternal Grandmother Stomach cancer Other Mental health disorder Social History Household Members: None Housing: Apartment Are you a primary managed care nurse to a significant other at home: No Do you presently have visiting nurse or other home services: No Alcohol intake: never Patient Tobacco Use Status: Never used Tobacco Tobacco use type: Cigarette e-Cigarette/Vaping Use: Never Used Second Hand Smoke Exposure: No service: No Current occupational status: disabled Cognitive needs: Yes (cane) Hearing needs: No Vision needs: No Review of Systems Const All systems reviewed & are unremarkable except as noted in HPI and below Physical Exam Const General: cooperative, healthy appearing, comfortable, no acute distress, well developed, alert and awake Nutritional Appearance: overweight Orientation/consciousness: patient oriented x3 Limitations: no limitations HEENT Head: Yes normal to inspection, Yes normocephalic and Yes atraumatic Ears: hearing grossly normal bilaterally Eyes General: appearance normal, both eyes and all related structures Neck Neck: Yes normal visual inspection and Yes trachea midline Chest Chest palpation & inspection: normal inspection of the chest Resp Effort & Inspection: normal respiratory effort and able to speak in complete sentences Cardio Rate: regular rate GI Inspection: Yes normal to inspection General: Yes no CVA tenderness Back/Spine/Pelvis Back: no CVA tenderness Skin General skin exam: no rashes or lesions noted Neuro General: patient oriented x3 Extrem General: Yes normal to inspection Psych Appearance: grossly normal and well kempt Mental Status: mental status grossly normal Speech and movement: Normal speech and movement present and Clear speech present Affect: normal affect Attitude: cooperative Thought process: Normal thought process present Thought content: Normal thought content present Insight: Fair insight present (Psych) Judgement: Fair judgement present (Psych) Office Procedures Post Void Residual Post Residual Void Post Void Residual (PVR): 48 66523-Rsyc Void Residual by ultrasound Results AMB Urinalysis, Automated UA Leukoctes 0 Jasmyn/uL Last Edit by [employer] on 11/25/24 14:04 UA Nitrite Last Edit by [employer] on 11/25/24 14:04 UA Urobilinogen 0.2 mg/dL Last Edit by [employer] on 11/25/24 14:04 UA Protein 0 mg/dL Last Edit by [employer] on 11/25/24 14:04 UA pH 6.0 Last Edit by [employer] on 11/25/24 14:04 UA Blood 0 Jose Angel/uL Last Edit by [employer] on 11/25/24 14:04 UA Specific [place] 1.025 Last Edit by [employer] on 11/25/24 14:04 UA Ketone Last Edit by [employer] on 11/25/24 14:04 UA Bilirubin 0 mg/dL Last Edit by [employer] on 11/25/24 14:04 UA Glucose 0 mg/dL Last Edit by [employer] on 11/25/24 14:04 Results Reviewed Results Reviewed: Laboratory Last Values Urine pH (Auto) 6.0 11/25/24 13:40 Specific [place] (Auto) 1.025 11/25/24 13:40 Urine Protein (Auto) 0 mg/dL 11/25/24 13:40 Glucose (UA)(Auto) 0 mg/dL 11/25/24 13:40 Urine Blood (Auto) 0 Jose Angel/uL 11/25/24 13:40 Urine Bilirubin (Auto) 0 mg/dL 11/25/24 13:40 Urine Urobilinogen (Auto) 0.2 mg/dL 11/25/24 13:40 Leukocyte Esterase (Auto) 0 Jasmyn/uL 11/25/24 13:40 Assessment & Plan Assessment & Plan (1) Overactive bladder: Code(s): N32.81 - Overactive bladder Category: Medical (2) Incontinence: Code(s): R32 - Unspecified urinary incontinence Category: Medical Plan In office urinalysis results reviewed the patient today; as noted above. PVR 48 mL. Continue Gemtesa. She reports be happy with her current voiding parameters on Gemtesa. Discussed near future in office cystoscopy and or urodynamics for further assessment evaluation if symptoms arise Follow-up in 6 months with PVR; or sooner with any issues, concerns, and or questions. Orders: Orders AMB Urinalysis Automated Today Z13.9 - Encounter for screening, unspecified AMB Post Void Residual by ultrasound Today R32 - Unspecified urinary incontinence Patient Instructions: The patient had an opportunity to ask questions regarding the treatment plan. All questions were answered. Physical exam, labs, and imaging were discussed and reviewed in detail. As well as risks, benefits, and discussion of treatment choices. No major barriers to understanding were identified. The patient expressed understanding and agreement with the above treatment plan. The patient was made aware they should contact our office by phone for worsening of their current condition, the appearance of new symptoms, or with any questions or concerns. Compliance is encouraged with any medications and follow up testing that is ordered. It is a privilege to be allowed the opportunity to participate in? your urological care.? Again, if you have any questions or concerns If you have any questions or concerns please do not hesitate to contact me. The office is [phone]. This note is constructed using voice recognition software. While every effort has been made to ensure accuracy playground equipment erector errors may have been included. Yours sincerely, JEAN Miranda Coding Level of Care Code Est Pt Level 3 (82269) Diagnoses Overactive bladder N32.81 Incontinence R32 CPT Codes Post Residual Void - PVR CPT Code: 49018-Vnke Void Residual by ultrasound ([id number])
--- OUTSIDE RECORDS SUMMARY | 2024-11-25 14:46 | XMS_ITS | Patient Health Record ---
[facility] Address [address] [facility] et [facility] [place] [address] Care Team Providers Care Vault Person Name Role Phone Abelardo ROSALES, Ishmael Primary Care Provider Kelsey Floyd Unavailable [phone] Allergies No Known Allergies Reason For Referral [...] Problem Acquired hammer toe of left foot (4103338177792856) Other hammer toe(s) (acquired), left foot (M20.42) Active confirmed Problem [id number] Gouty arthritis of left foot (M10.9) Active confirmed Problem Arthritis of joint of lesser toe, left (M19.072) Active confirmed Vital Signs Height 5 ft 4 in in 04/22/2024 Weight 184 lbs 04/22/2024 BMI 31.58 kg/m2 04/22/2024 Encounters Encounter Location Date [facility] [address] [address] 04/22/2024 Kelsey Hess Pain in left toe(s) M79.675 ; Other hammer toe(s) (acquired), left foot M20.42 ; Arthritis of joint of lesser toe, left M19.072 ; Subluxation of metatarsophalangeal joint of toe, initial encounter S93.149A ; Onychomycosis B35.1 ; Pain in right toe(s) M79.674 and Gouty arthritis of left foot M10.9 [facility] [address] [address] 01/20/2024 Kelsey Hess Assessments Encounter Date Diagnosis [...] Date Coverage End Date [employer] [address] [place] [phone] [id number] Lindsay Mace Self - patient is the insured Medical (General) History Medical History History ICD Code Anemia Arthritis Knee Pain Cataracts Depression Headaches/Migraines High blood pressure Kidney disease Osteoporosis Psychiatric disorder Sciatica Mumps Chicken pox Surgical History Surgery Date(Month/Year) gall stones
--- OUTSIDE RECORDS SUMMARY | 2024-11-25 14:46 | XMS_ITS ---
Author Organization [facility] Address [address] [place] [address] Care Team Providers Care Food Cart Attendant Name Role Phone Ishmael Zhou MD Primary Care Provider Unavaila Kelsey Leach [phone] REASON FOR VISIT FIRE HAZARD INSPECTOR PPWK Entered Encounters Encounter Location Date Provider Diagnosis [facility] [address] [place] [address] 01/20/2024 Kelsey Hess Plan Of Treatment No Information Progress Notes * RODRILindsayDOB:1950 (73 yo F)Acc No.[id number]:01/20/2024 Patient:?Lindsay Mace :1950???Age:73 Y???Sex:Female Address:[address] [place] [address], [address] , [place], [place], * true * Date:? Generated for Printi noemi/Laura/eTransmitting on:?11/25/2024 02:46 PM EDT
--- OUTSIDE RECORDS SUMMARY | 2024-11-25 14:46 | XMS_ITS ---
Author Organization [facility] Address [address] [place] [address] Care Team Providers Care Education Adviser Name Role Phone Ishmael Zhou MD Primary Care Provider Kelsey Floyd Unavailable [phone] Allergies No Known Allergies REASON FOR VISIT [...] Problem Acquired hammer toe of left foot ([id number]) Other hammer toe(s) (acquired), left foot (M20.42) Active confirmed Problem Arthritis of joint of lesser toe, left (M19.072) Active confirmed Problem 9544682762060918 Gouty arthritis of left foot (M10.9) Active confirmed Vital Signs Height 5 ft 4 in in 04/22/2024 Weight 184 lbs 04/22/2024 BMI 31.58 kg/m2 04/22/2024 Encounters Encounter Location Date Provider Diagnosis [facility] [place] [address] [place] [address] 04/22/2024 Kelsey Hess Pain in left toe(s) [...] use of a nail nipper and/or dremel-type white lead grinder, to a more viable healthy nail plate or bed tissue 1-5. Silver nitrate used for any petechial bleeding as necessary. Definitive antifungal treatment options have been reviewed and discussed with the patient. The patient chooses, no pharmaceutical tx - 66673 Progress Notes * Lindsay MACEDOB:1950 (73 yo F)Acc No.[id number]:04/22/2024 Progress Notes Patient:?Lindsay Mace Provider:?Kelsey Hess DPM :1950???Age:73 Y???Sex:Female D ate:04/22/2024 Address:[address] [place] [address], [address] Pcp:Ishmael Zhou MD Subjective: * Chief Complaints: [...] use of a nail nipper and/or dremel-type white lead grinder, to a more viable healthy nail plate or bed tissue 1-5. Silver nitrate used for any petechial bleeding as necessary. Definitive antifungal treatment options have been reviewed and discussed with the patient. The patient chooses, no pharmaceutical tx - 59827.? * Procedure Codes:?18261 ADDISON LUONG NAIL, 1-825781 X-RAY EXAM OF LEFT FOOT 3V, Modifiers: [...] Hess DPM Date:?08/2023 Generated for Lorna franklin/Laura/eTransmitting on:?11/25/2024 02:45 PM EDT History and Physical Notes * [...] Lateral tracking 1st MPJ nonreducible , B/L FOOTWEAR EVALUATION: shoe gear propertie s exacerbate patients foot/toe deformity DIGITAL DEFORMITIES: Digital [...]
== END 2024-11-25 14:16 | disposition home or self-care (01) ==
LOC: HO.HUSH 13:30
PROVIDERS: PCP Internal Medicine; Visit Provider Nurse Practitioner Family
DX: N32.81 Overactive bladder (principal); R32 Unspecified urinary incontinence; Z13.9 Encounter for screening, unspecified
CPT/HCPCS: 99213

== ENCOUNTER → 2024-11-25 13:30 | Outpatient (BNVA) | payer MEDICARE, SELFPAY | PROVIDERS: PCP Internal Medicine; Visit Provider Nurse Practitioner Family | DX: N32.81 Overactive bladder (principal); R32 Unspecified urinary incontinence | CPT/HCPCS: 51798; 81003; 99212 ==

== ENCOUNTER 2024-12-02 12:51 | Outpatient (AMB) | payer MEDICARE, MEDICAID, SELFPAY ==
--- OUTSIDE RECORDS SUMMARY | 2024-12-02 13:10 | XMS_ITS ---
Author Organization [facility] Address [address] [place] [place] [address] Care Team Providers Care Ballistics Expert Forensic Name Role Phone Ishmael Zhou MD Primary Care Provider Kelsey Floyd Unavailable [phone] Allergies No Known Allergies REASON FOR VISIT [...] Problem Acquired hammer toe of left foot (0706254897469496) Other hammer toe(s) (acquired), left foot (M20.42) Active confirmed Problem Localized, primary osteoarthritis of the ankle and/or foot (146505341) Arthritis of joint of lesser toe, left (M19.072) Active confirmed Problem 2449709707137558 Gouty arthritis of left foot (M10.9) Active confirmed Vital Signs Height 5 ft 4 in in 04/22/2024 Weight 184 lbs 04/22/2024 BMI 31.58 kg/m2 04/22/2024 Encounters Encounter Location Date Provider Diagnosis [facility] [address] [address] 04/22/2024 Kelsey Hess Pain in left toe(s) [...] use of a nail nipper and/or dremel-type stopper grinder, to a more viable healthy nail plate or bed tissue 1-5. Silver nitrate used for any petechial bleeding as necessary. Definitive antifungal treatment options have been reviewed and discussed with the patient. The patient chooses, no pharmaceutical tx - 59166 Progress Notes * Lindsay MACEDOB:1950 (73 yo F)Acc No.[id number]:04/22/2024 Progress Notes Patient:?Lindsay Mace Provider:?Kelsey Hess DPM :1950???Age:73 Y???Sex:Female D ate:04/22/2024 Address:[address] [place], [place] [address] Pcp:Ishmael Zhou MD Subjective: * Chief Complaints: [...] use of a nail nipper and/or dremel-type stopper grinder, to a more viable healthy nail plate or bed tissue 1-5. Silver nitrate used for any petechial bleeding as necessary. Definitive antifungal treatment options have been reviewed and discussed with the patient. The patient chooses, no pharmaceutical tx - 34488.? * Procedure Codes:?33884 ADDISON ORTIZ, [id number] X-RAY EXAM OF LEFT FOOT 3V, Modifiers: [...] * Provider:?Kelsey Hess DPM Date:?08/2023 Generated for Fransiscai noemi/Laura/eTransmitting on:?12/02/2024 01:10 PM EDT History and Physical Notes * [...]
--- OUTSIDE RECORDS SUMMARY | 2024-12-02 13:11 | XMS_ITS ---
Author Organization [facility] Address [address] [place] [address] Care Team Providers Care Health Sciences Manager Name Role Phone Ishmael Zhou MD Primary Care Provider Unavaila Kelsey Leach [phone] REASON FOR VISIT MUCKER COFFERDAM PPWK Entered Encounters Encounter Location Date Provider Diagnosis [facility] [address] [place] [address] 01/20/2024 Kelsey Hess Plan Of Treatment No Information Progress Notes * RODRILindsayDOB:1950 (73 yo F)Acc No.[id number]:01/20/2024 Patient:?Lindsay Mace :1950???Age:73 Y???Sex:Female Address:[address] [place] [address], [address] , [place], [place], * true * Date:? Generated for Printi ng/Fageorgeg/eTransmitting on:?12/02/2024 01:10 PM EDT
--- OUTSIDE RECORDS SUMMARY | 2024-12-02 13:11 | XMS_ITS | Patient Health Record ---
Author Organization [facility]reen [facility] Address [address] [facility] [place] [address] Care Team Providers Care Shipping And Receiving Name Role Phone Abelardo ROSALES, Ishmael Primary Care Provider Kelsey Floyd Unavailable [phone] Allergies No Known Allergies Reason For Referral [...] Problem Acquired hammer toe of left foot (1027788776475271) Other hammer toe(s) (acquired), left foot (M20.42) Active confirmed Problem [id number] Gouty arthritis of left foot (M10.9) Active confirmed Problem Localized, primary osteoarthritis of the ankle and/or foot (072530318) Arthritis of joint of lesser toe, left (M19.072) Active confirmed Vital Signs Height 5 ft 4 in in 04/22/2024 Weight 184 lbs 04/22/2024 BMI 31.58 kg/m2 04/22/2024 Encounters Encounter Location Date [facility] [address] 04/22/2024 Kelsey Hess Pain in left toe(s) M79.675 ; Other hammer toe(s) (acquired), left foot M20.42 ; Arthritis of joint of lesser toe, left M19.072 ; Subluxation of metatarsophalangeal joint of toe, initial encounter S93.149A ; Onychomycosis B35.1 ; Pain in right toe(s) M79.674 and Gouty arthritis of left foot M10.[address] [facility] [address] 01/20/2024 Kelsey Hess Assessments Encounter Date Diagnosis [...] Date Coverage End Date [employer] [address] [place] [phone] [id number] Lindsay Mace Self - patient is the insured Medical (General) History Medical History History ICD Code Anemia Arthritis Knee Pain Cataracts Depression Headaches/Migraines High blood pressure Kidney disease Osteoporosis Psychiatric disorder Sciatica Mumps Chicken pox Surgical History Surgery Date(Month/Year) gall stones
--- NOTE | 2024-12-02 13:36 | A.OFFVIS_ITS ---
Vital Signs 12/02/24 13:38 Height 5 ft 4 in Weight 207 lb 14.334 oz BMI 35.7 BP 130/64 Blood Pressure Location Lt brachial Position Sitting Pulse 79 Pulse Source Monitor Intake Visit Reasons: 6 mth f/up Intake Note: 6 mht f/up Time Study Technician Required: No Accompanied by: Self / Same As Patient Allergies No Known Allergies [No Known Allergies*] Allergy (Verified 11/25/24 14:41) Medication List - Last Reconciled 12/02/24 by Trell Key MD amlodipine 5 mg PO DAILY bupropion HCl XL 300 mg PO DAILY carbamazepine 200 mg PO BID citalopram 20 mg PO DAILY cyanocobalamin (vitamin B-12) 1,000 mcg sublingual DAILY cyanocobalamin (vitamin B-12) 1,000 mcg sublingual DAILY diaper,brief,adult,disposable ([place] Choice Comfort Protect Adult Diaper X- Large) As directed ferrous sulfate 325 mg PO DAILY fluticasone propionate 50 mcg/actuation 1 spray intranasal BID loratadine (Allergy Relief (loratadine)) 10 mg PO DAILY PRN mirtazapine 7.5 mg PO BEDTIME olanzapine 7.5 mg PO DAILY omeprazole 40 mg PO DAILY [pull ups twice per day as needed] vibegron (Gemtesa) 75 mg PO DAILY 30 days HPI Comments Details: 73-year-old female who is here follow-up. She has background history of dyspnea. She had anemia in the past which has been stable mostly. She also had coronary angiography for dyspnea on exertion which was unremarkable. She is returning and is complaining of fatigue and shortness of breath. She is quite sedentary at this stage and does not exercise regularly. Denying any other symptoms in particular no chest discomfort. Taking medications regularly and tolerating them well. Blood pressure control is good. 01/30/23: She returns for follow-up. She has been experiencing some pressure- like feeling at nighttime. His last for hours and does not happen during the day. She has significant issues with previous esophageal stricture as well as he has esophagitis. She has acid reflux. She is denying any chest discomfort shortness of breath with activity. 06/05/2023: She returns for follow-up. She has no chest pain or shortness of breath. She has run out of her amlodipine and has not been taking it for few weeks. Blood pressure continues to be good. We will send a script for her. She said she was in the emergency department with lower back pain. 05/27/2024: She is here for 1 year follow-up. She is complaining of shortness of breath with activities. She has known history of anemia and currently is on ferrous sulfate and vitamin B12. She is saying she may be getting some blood workup in the coming week. Physically not active and that is probably playing a big role in her dyspnea. 12/02/24: She is here for follow-up. She is complaining that she is more short of breath. No bleeding issues. She is saying she has not been anemic. No chest pains. Denying any orthopnea or PND. No peripheral [facility] Medical History Herniation of left side of L4-L5 intervertebral disc Bilateral primary osteoarthritis of knee Encounter for initial annual wellness visit (AWV) in Medicare patient Schizophrenia Surgical History History of esophagogastroduodenoscopy (EGD) Hx of colonoscopy History of laparoscopic cholecystectomy History of cardiac catheterization History of cataract surgery History of throat surgery History of bladder surgery Family History Father Past heart attack Diabetes Mother Past heart attack Paternal Grandmother Stomach cancer Other Mental health disorder Social History Household Members: None Housing: Apartment Are you a primary nurse healthcare manager to a significant other at home: No Do you presently have visiting nurse or other home services: No Alcohol intake: never Patient Tobacco Use Status: Never used Tobacco Tobacco use type: Cigarette e-Cigarette/Vaping Use: Never Used Second Hand Smoke Exposure: No service: No Current occupational status: disabled Cognitive needs: Yes (cane) Hearing needs: No Vision needs: No Review of Systems Const Denies chills, Denies fatigue, Denies fever(s), Denies frequent falls, Denies weakness, Denies weight gain and Denies weight loss ENT Denies dizziness Card Reports chest pain, Reports chest pain at rest, Reports chest pain with activity, Denies leg edema, Denies lightheadedness, Denies palpitations, Reports dyspnea and Reports dyspnea on exertion Resp Denies cough, Reports dyspnea and Reports dyspnea on exertion GI Denies hematochezia Musc Denies abnormal gait, Denies muscle weakness, Denies numbness, Denies radiating pain into limb and Denies tingling Neuro Denies abnormal gait, Denies dizziness, Denies frequent falls, Denies numbness, Denies tingling and Denies weakness Endo Denies fatigue and Denies palpitations Physical Exam Vital Signs: Last Vital Signs Pulse 79 12/02/24 13:38 BP 130/64 12/02/24 13:38 BMI result Body Mass Index 35.7 GENERAL APPEARANCE: in no acute distress, pleasant. NECK: no carotid bruit, no jugular venous distention. SKIN: no suspicious lesions, warm and dry. HEART: no murmurs, regular rate and rhythm. LUNGS: clear to auscultation bilaterally. ABDOMEN: soft, nontender. EXTREMITIES: no edema. PERIPHERAL PULSES: equal. NEUROLOGIC: No gross deficits, AAO X 3 Office Procedures EKG Details: Sinus rhythm 79 beats per minute, normal axis, poor R-wave progression, QTC 433 milliseconds. [id number], Complete Assessment & Plan Assessment & Plan (1) Hypertension: Code(s): I10 - Essential (primary) hypertension Category: Medical Qualifiers: Hypertension type: unspecified Qualified Code(s): I10 - Essential (primary) hypertension (2) Dyspnea: Comment: Stable Code(s): R06.00 - Dyspnea, unspecified Category: Medical Qualifiers: Dyspnea type: unspecified Qualified Code(s): R06.00 - Dyspnea, unspecified Plan Pleasant 74 year female who is here for follow-up. She has background history of hypertension. Blood pressure is well controlled. She also had dyspnea on exertion and Saturday which was thought to be secondary to anemia. She is saying she has not been anemic. She is going to get repeat blood workup soon. We will arrange an echocardiogram to rule out any structural issues/valvular pathology. Clinically her exam appears to be good and she does not have any signs of heart failure. Given progressive dyspnea and we will try to rule out any cardiovascular issues starting with echocardiography. She previously had angiography which was normal. Thank you for allowing me to participate in the care of your patient. Please feel free to contact me if you have any questions. Orders: Orders CA echo transthorac w con Today R06.00 - Dyspnea, unspecified Coding Level of Care Code Est Pt Level 4 (91144) Diagnoses Hypertension, unspecified type I10 Hypertension type: unspecified Dyspnea, unspecified type R06.00 Dyspnea type: unspecified CPT Codes EKG - CPT: 12964-[id number], Complete ([id number])
[2024-12-02 13:38] VITALS: BP 130/64; PULSE 79; BMI 35.7
== END 2024-12-02 14:17 | disposition home or self-care (01) ==
LOC: HO.HCS 12:52
PROVIDERS: PCP Internal Medicine; Visit Provider Internal Medicine Cardiovascular Disease
DX: I10 Essential (primary) hypertension (principal); R06.00 Dyspnea, unspecified
CPT/HCPCS: 93010; 99214

== ENCOUNTER → 2024-12-02 12:51 | Outpatient (BNVA) | payer MEDICARE, MEDICAID, SELFPAY | PROVIDERS: PCP Internal Medicine; Visit Provider Internal Medicine Cardiovascular Disease | DX: I10 Essential (primary) hypertension (principal); R06.00 Dyspnea, unspecified | CPT/HCPCS: 93005; 99212 ==

== ENCOUNTER 2025-01-11 13:31 | Outpatient (AMB) | payer MEDICARE, SELFPAY ==
--- NOTE | 2025-01-11 13:37 | MHC.PC.OV ---
Vital Signs 01/11/25 13:38 Height 5 ft 4 in Weight 202 lb BMI 34.7 BP 112/76 Blood Pressure Location Lt brachial Position Sitting Pulse 83 Pulse Source Pulse Oximeter Pulse Oximetry (%) 96 Oxygen Delivery Method Room Air Intake Visit Reasons: 3 Month F/U Money Position Officer Required: No Accompanied by: Self / Same As Patient Allergies No Known Allergies (No Known Allergies*) Allergy (Verified 01/11/25 14:14) Medication List - Last Reconciled 01/11/25 by VERONIQUE CrenshawC amlodipine 5 mg PO DAILY bupropion HCl XL 300 mg PO DAILY carbamazepine 200 mg PO BID citalopram 20 mg PO DAILY cyanocobalamin (vitamin B-12) 1,000 mcg sublingual DAILY cyanocobalamin (vitamin B-12) 1,000 mcg sublingual DAILY diaper,brief,adult,disposable ([place] [employer] Comfort Protect Adult Diaper X-Large) As directed ferrous sulfate 325 mg PO DAILY fluticasone propionate 50 mcg/actuation 1 spray intranasal BID loratadine (Allergy Relief (loratadine)) 10 mg PO DAILY PRN mirtazapine 7.5 mg PO BEDTIME olanzapine 7.5 mg PO DAILY omeprazole 40 mg PO DAILY [pull ups twice per day as needed] vibegron (Gemtesa) 75 mg PO DAILY 30 days Tobacco use date assessed: 01/11/25 Fall risk assessment: 2 + Falls in past year Last assessed Fall Risk: 01/11/25 Dental Screening Dental Screen Date: 01/11/25 Did you have a dental visit in the last 12 months?: No Did you have a dental problem in the last 6 months where you did not have access to dental care?: No Was dental information given to patient?: No HPI 3 Month F/U HPI Details The patient is 74 year old female presenting of follow appt Reports that she was given carbamazepine 200 mg left knee on and off goes out. Went out about 4 months ago. reports having injection 3 times between and it works. Will like to be seen by othropedic to see if she is candidate seeing her psychiatrist every 3 months [facility] Medical History Herniation of left side of L4-L5 intervertebral disc Bilateral primary osteoarthritis of knee Encounter for initial annual wellness visit (AWV) in Medicare patient Schizophrenia Surgical History History of esophagogastroduodenoscopy (EGD) Hx of colonoscopy History of laparoscopic cholecystectomy History of cardiac catheterization History of cataract surgery History of throat surgery History of bladder surgery Family History Father Past heart attack Diabetes Mother Past heart attack Paternal Grandmother Stomach cancer Other Mental health disorder Social History Household Members: None Housing: Apartment Are you a primary health care law specialist to a significant other at home: No Do you presently have visiting nurse or other home services: No Alcohol intake: never Patient Tobacco Use Status: Never used Tobacco Tobacco use type: Cigarette e-Cigarette/Vaping Use: Never Used Second Hand Smoke Exposure: No service: No Current occupational status: disabled Cognitive needs: Yes (cane) Hearing needs: No Vision needs: No Questionnaire PHQ-9 Over the last 2 weeks, how often have you been bothered by any of the following problems? 1. Little interest or pleasure in doing things: not at all 2. Feeling down, depressed, or hopeless: not at all 3. Trouble falling or staying asleep, or sleeping too much: not at all 4. Feeling tired or having little energy: not at all 5. Poor appetite or overeating: not at all 6. Feeling bad about yourself - or that you are a failure or have let yourself or your family down: not at all 7. Trouble concentrating on things, such as reading the newspaper or watching television: not at all 8. Moving or speaking so slowly that other people could have noticed. Or the opposite - being so fidgety or restless that you have been moving around a lot more than usual: not at all 9. Thoughts that you would be better off or of hurting yourself in some way: not at all Total score: 0 Source: Developed by Drs. Jean Marie Granda, Poonam Mcclain, Brennan Duran and colleagues, with an educational leah from [employer]. Thrive Questionnaire Date Thrive assessed: 01/11/25 I am a: Patient What is your living situation today?: I have a steady place to live Within the past 12 months, did the food you bought not last and you didn't have the money to get more?: Often true Within the past 12 months, did you worry whether your food would run out before you got money to buy more?: Sometimes True Do you have trouble paying for medicines?: Yes Do you have trouble getting transportation to medical appointments?: No Do you have trouble paying your heating and electricity bill?: No Do you have trouble taking care of your child, family member or friend?: No Do you have trouble with day-to-day activities such as bathing, preparing meals, shopping, managing finances, etc.?: No Are you currently unemployed and looking for a job?: No Are you interested in more education?: No Please select the resources that you would like help with: None Currently or been in a relationship where the following occur: I choose not to answer THRIVE Score: 2 AUDIT C Alcohol Use Questionnaire (AUDIT-C) 1. How often do you have a drink containing alcohol?: Never 3. How often do you have six or more drinks on one occasion?: Never Total Score: 0 JULIO-7 AMB Questionnaire JULIO-7 Date JULIO - 7 assessed: 01/11/25 Feeling nervous, anxious, or on edge: 0 = Not at all Not being able to stop or control worryin = Not at all Worrying too much about different things: 0 = Not at all Trouble relaxin = Not at all Being so restless that it is hard to sit still: 0 = Not at all Becoming easily annoyed or irritable: 0 = Not at all Feeling afraid as if something awful might happen: 0 = Not at all Total JULIO-7 score (0-4 normal; 5-9 mild; 10-14 moderate; 15-21 severe): 0 Source: Developed by Drs. Jean Marie Granda, Poonam Mcclain, Brennan Duran and colleagues, with an educational leah from [employer]. Physical exam (Primary Care) Vital Signs: Last Vital Signs Pulse 83 01/11/25 13:38 BP 112/76 01/11/25 13:38 Pulse Ox 96 01/11/25 13:38 Oxygen Delivery Method Room Air 01/11/25 13:38 BMI result Body Mass Index 34.7 Tobacco/Smoking Status: Tobacco use Status Tobacco use date assessed 01/11/25 01/11/25 14:34 Patient Tobacco Use Status Never used Tobacco 01/11/25 14:34 Tobacco use type Cigarette 01/11/25 14:34 e-Cigarette/Vaping Use Never Used 01/11/25 14:34 PHQ-9: PHQ-9 Score PHQ-9: Total score 0 01/12/25 00:14 Thrive Assessment: Date of Thrive Assessment Date Thrive assessed 01/11/25 01/11/25 14:34 Currently or been in a relationship where the following occur: I choose not to answer Coding Assessment & Plan Assessment & Plan Orders: Orders Hemoglobin A1c 01/11/25 E66.9 - Obesity, unspecified, E78.5 - Hyperlipidemia, unspecified, F20.9 - Schizophrenia, unspecified, I10 - Essential (primary) hypertension, K21.00 - Gastro-esophageal reflux disease with esophagitis, without bleeding, N32.81 - Overactive bladder, R53.82 - Chronic fatigue, unspecified, R79.89 - Other specified abnormal findings of blood chemistry Comprehensive [place]. Panel Fast 01/11/25 E66.9 - Obesity, unspecified, E78.5 - Hyperlipidemia, unspecified, F20.9 - Schizophrenia, unspecified, I10 - Essential (primary) hypertension, K21.00 - Gastro-esophageal reflux disease with esophagitis, without bleeding, N32.81 - Overactive bladder, R53.82 - Chronic fatigue, unspecified, R79.89 - Other specified abnormal findings of blood chemistry Lipid Panel 01/11/25 E66.9 - Obesity, unspecified, E78.5 - Hyperlipidemia, unspecified, F20.9 - Schizophrenia, unspecified, I10 - Essential (primary) hypertension, K21.00 - Gastro-esophageal reflux disease with esophagitis, without bleeding, N32.81 - Overactive bladder, R53.82 - Chronic fatigue, unspecified, R79.89 - Other specified abnormal findings of blood chemistry TSH reflex Free T4 01/11/25 E66.9 - Obesity, unspecified, E78.5 - Hyperlipidemia, unspecified, F20.9 - Schizophrenia, unspecified, I10 - Essential (primary) hypertension, K21.00 - Gastro-esophageal reflux disease with esophagitis, without bleeding, N32.81 - Overactive bladder, R53.82 - Chronic fatigue, unspecified, R79.89 - Other specified abnormal findings of blood chemistry UA CC w/rflx Micro + Cult 01/11/25 E66.9 - Obesity, unspecified, E78.5 - Hyperlipidemia, unspecified, F20.9 - Schizophrenia, unspecified, I10 - Essential (primary) hypertension, K21.00 - Gastro-esophageal reflux disease with esophagitis, without bleeding, N32.81 - Overactive bladder, R53.82 - Chronic fatigue, unspecified, R79.89 - Other specified abnormal findings of blood chemistry Free T4 (Free Thyroxine) 01/11/25 E66.9 - Obesity, unspecified, E78.5 - Hyperlipidemia, unspecified, F20.9 - Schizophrenia, unspecified, I10 - Essential (primary) hypertension, K21.00 - Gastro-esophageal reflux disease with esophagitis, without bleeding, N32.81 - Overactive bladder, R53.82 - Chronic fatigue, unspecified, R79.89 - Other specified abnormal findings of blood chemistry Vitamin D 25-OH Total 01/11/25 E66.9 - Obesity, unspecified, E78.5 - Hyperlipidemia, unspecified, F20.9 - Schizophrenia, unspecified, I10 - Essential (primary) hypertension, K21.00 - Gastro-esophageal reflux disease with esophagitis, without bleeding, N32.81 - Overactive bladder, R53.82 - Chronic fatigue, unspecified, R79.89 - Other specified abnormal findings of blood chemistry Vitamin B12 and Folate 01/11/25 E66.9 - Obesity, unspecified, E78.5 - Hyperlipidemia, unspecified, F20.9 - Schizophrenia, unspecified, I10 - Essential (primary) hypertension, K21.00 - Gastro-esophageal reflux disease with esophagitis, without bleeding, N32.81 - Overactive bladder, R53.82 - Chronic fatigue, unspecified, R79.89 - Other specified abnormal findings of blood chemistry Referrals Orthopedics Referral G89.29 - Other chronic pain, M25.562 - Pain in left knee Medications: New amoxicillin-pot clavulanate 875-125 mg 1 tab PO Q12H 14 tabs 0RF 7 days Refilled loratadine (Allergy Relief (loratadine)) 10 mg PO DAILY PRN 30 tabs 0RF allergy symptoms
[2025-01-11 13:38] VITALS: BP 112/76; PULSE 83; O2SAT 96; BMI 34.7
--- NOTE | 2025-01-11 14:34 | A.OFFPC_ITS ---
Vital Signs 01/11/25 13:38 Height 5 ft 4 in Weight 202 lb BMI 34.7 BP 112/76 Blood Pressure Location Lt brachial Position Sitting Pulse 83 Pulse Source Pulse Oximeter Pulse Oximetry (%) 96 Oxygen Delivery Method Room Air Intake Visit Reasons: 3 Month F/U Allergies No Known Allergies (No Known Allergies*) Allergy (Verified 01/11/25 14:14) Medication List - Last Reconciled 01/11/25 by SANDI Crenshaw amlodipine 5 mg PO DAILY bupropion HCl XL 300 mg PO DAILY carbamazepine 200 mg PO BID citalopram 20 mg PO DAILY cyanocobalamin (vitamin B-12) 1,000 mcg sublingual DAILY cyanocobalamin (vitamin B-12) 1,000 mcg sublingual DAILY diaper,brief,adult,disposable ([place] Choice Comfort Protect Adult Diaper X- Large) As directed ferrous sulfate 325 mg PO DAILY fluticasone propionate 50 mcg/actuation 1 spray intranasal BID loratadine (Allergy Relief (loratadine)) 10 mg PO DAILY PRN mirtazapine 7.5 mg PO BEDTIME olanzapine 7.5 mg PO DAILY omeprazole 40 mg PO DAILY [pull ups twice per day as needed] vibegron (Gemtesa) 75 mg PO DAILY 30 days Tobacco use date assessed: 01/11/25 Dental Screening Dental Screen Date: 01/11/25 Did you have a dental visit in the last 12 months?: No Did you have a dental problem in the last 6 months where you did not have access to dental care?: No Was dental information given to patient?: No HPI 3 Month F/U HPI Details The patient is a 74-year-old female presenting with oral pain and trigeminal neuralgia. She reports a history of dental issues for over 20 years, which have progressively worsened, leading to significant pain. Previous interventions included antibiotics, which provided only short-term relief, and medications for trigeminal neuralgia, which have not been effective. The patient also has a history of elevated liver enzymes and hyperlipidemia. Her liver enzymes are slightly elevated, and she is not currently on any medication for hyperlipidemia due to concerns about potential liver impact. Dietary modifications have been recommended to manage cholesterol levels. She reports knee arthritis, which has caused her knee to give out on occasion, leading to falls. She has previously undergone physical therapy and received injections, which were effective. The patient is considering further orthopedic evaluation for potential injections. Additionally, she has been diagnosed with an overactive bladder, for which she is taking medication. [facility] Medical History Herniation of left side of L4-L5 intervertebral disc Bilateral primary osteoarthritis of knee Encounter for initial annual wellness visit (AWV) in Medicare patient Schizophrenia Surgical History History of esophagogastroduodenoscopy (EGD) Hx of colonoscopy History of laparoscopic cholecystectomy History of cardiac catheterization History of cataract surgery History of throat surgery History of bladder surgery Family History Father Past heart attack Diabetes Mother Past heart attack Paternal Grandmother Stomach cancer Other Mental health disorder Social History Household Members: None Housing: Apartment Are you a primary ocular care technician to a significant other at home: No Do you presently have visiting nurse or other home services: No Alcohol intake: never Patient Tobacco Use Status: Never used Tobacco Tobacco use type: Cigarette e-Cigarette/Vaping Use: Never Used Second Hand Smoke Exposure: No service: No Current occupational status: disabled Cognitive needs: Yes (cailin) Hearing needs: No Vision needs: No Questionnaire PHQ-9 Over the last 2 weeks, how often have you been bothered by any of the following problems? 1. Little interest or pleasure in doing things: not at all 2. Feeling down, depressed, or hopeless: not at all 3. Trouble falling or staying asleep, or sleeping too much: not at all 4. Feeling tired or having little energy: not at all 5. Poor appetite or overeating: not at all 6. Feeling bad about yourself - or that you are a failure or have let yourself or your family down: not at all 7. Trouble concentrating on things, such as reading the newspaper or watching television: not at all 8. Moving or speaking so slowly that other people could have noticed. Or the opposite - being so fidgety or restless that you have been moving around a lot more than usual: not at all 9. Thoughts that you would be better off or of hurting yourself in some way: not at all Total score: 0 Source: Developed by Drs. Jean Marie Granda, Poonam Mcclain, Brennan Duran and colleagues, with an educational leah from [employer]. Thrive Questionnaire Date Thrive assessed: 01/11/25 I am a: Patient What is your living situation today?: I have a steady place to live Within the past 12 months, did the food you bought not last and you didn't have the money to get more?: Often true Within the past 12 months, did you worry whether your food would run out before you got money to buy more?: Sometimes True Do you have trouble paying for medicines?: Yes Do you have trouble getting transportation to medical appointments?: No Do you have trouble paying your heating and electricity bill?: No Do you have trouble taking care of your child, family member or friend?: No Do you have trouble with day-to-day activities such as bathing, preparing meals, shopping, managing finances, etc.?: No Are you currently unemployed and looking for a job?: No Are you interested in more education?: No Please select the resources that you would like help with: None Currently or been in a relationship where the following occur: I choose not to answer THRIVE Score: 2 AUDIT C Alcohol Use Questionnaire (AUDIT-C) 1. How often do you have a drink containing alcohol?: Never 3. How often do you have six or more drinks on one occasion?: Never Total Score: 0 JULIO-7 AMB Questionnaire JULIO-7 Date JULIO - 7 assessed: 01/11/25 Feeling nervous, anxious, or on edge: 0 = Not at all Not being able to stop or control worryin = Not at all Worrying too much about different things: 0 = Not at all Trouble relaxin = Not at all Being so restless that it is hard to sit still: 0 = Not at all Becoming easily annoyed or irritable: 0 = Not at all Feeling afraid as if something awful might happen: 0 = Not at all Total JULIO-7 score (0-4 normal; 5-9 mild; 10-14 moderate; 15-21 severe): 0 Source: Developed by Poonam Hernandez Kurt Kroenke and colleagues, with an educational leah from [employer]. Review of Systems Const Reports frequent falls (due to left knee giving out) and Denies headache(s) Eyes Denies loss of vision ENT Reports dental pain, Denies vertigo, Denies dizziness, Reports facial pain (left side on and off), Denies headache(s) and Denies sore throat Card Denies chest pain, Denies leg edema and Denies lightheadedness Resp Denies cough, Denies hemoptysis and Denies wheezing GI Denies abdominal pain, Denies melena, Denies constipation, Denies diarrhea and Denies vomiting Denies urinary frequency, Denies dysuria and Reports urinary urgency (overactive bladder) Musc Reports arthralgias (left knee-gives out at times), Denies joint swelling, Denies loss of height, Denies numbness and Denies tingling Neuro Denies Abnormal speech present, Denies behavioral changes, Denies vertigo, Denies dizziness, Reports frequent falls (due to left knee giving out), Denies headache(s), Denies loss of vision, Denies memory loss, Denies numbness and Denies tingling Psych Denies anxiety, Denies behavioral changes, Reports depression, Denies memory loss and Denies panic attacks Bandar/Lymph Denies easy bleeding and Denies easy bruising Aller/Immun Denies wheezing Physical exam (Primary Care) Vital Signs: Last Vital Signs Pulse 83 01/11/25 13:38 BP 112/76 01/11/25 13:38 Pulse Ox 96 01/11/25 13:38 Oxygen Delivery Method Room Air 01/11/25 13:38 BMI result Body Mass Index 34.7 Tobacco/Smoking Status: Tobacco use Status Tobacco use date assessed 01/11/25 01/11/25 14:34 Patient Tobacco Use Status Never used Tobacco 01/11/25 14:34 Tobacco use type Cigarette 01/11/25 14:34 e-Cigarette/Vaping Use Never Used 01/11/25 14:34 PHQ-9: PHQ-9 Score PHQ-9: Total score 0 01/12/25 00:09 Thrive Assessment: Date of Thrive Assessment Date Thrive assessed 01/11/25 01/11/25 14:34 Currently or been in a relationship where the following occur: I choose not to answer Const General: healthy appearing, no acute distress, alert and awake Nutritional Appearance: well nourished Orientation/consciousness: oriented to person, oriented to place and oriented to time HENMT Ears: TM's normal bilaterally General nose exam: Normal nasal mucous membranes and turbinates present Teeth and gingiva: gingiva abnormal edematous and diffusely erythematous and poor dentition Eyes Conjunctivae: conjunctivae normal Sclerae: sclerae normal Pupils: Equal, round and reactive pupils present Neck Neck: Yes no lymphadenopathy and Yes no JVD Thyroid: Thyroid normal Carotids: no bruits Resp Effort & Inspection: normal respiratory effort and not tachypneic Auscultation: no crackles, no rales, no rhonchi and no wheezes Cardio Rate: regular rate Rhythm: regular rhythm Heart sounds: no murmurs and normal S1 and S2 GI Palpation (GI): Soft to palpation, nontender, no hepatomegaly and no splenomegaly Auscultation: normal bowel sounds Skin General skin exam: no rashes or lesions noted and dry skin Neuro General: oriented to person, oriented to place and oriented to time Cranial nerves: Yes Equal, round and reactive pupils present Speech: No Abnormal speech present Gait exam (Neuro): Normal gait present Motor exam (neuro): no tremor noted Extrem Right upper extremity: full ROM Left upper extremity: full ROM Right lower extremity: full ROM; no edema Left lower extremity: full ROM and knee Details: no tenderness and no swelling; no edema Psych Mental Status: mental status grossly normal Speech and movement: Normal speech and movement present Affect: normal affect Attitude: cooperative Thought process: Normal thought process present Coding Level of Care Code Est Pt Level 4 (35182) Diagnoses Schizophrenia, unspecified type F20.9 Schizophrenia type: unspecified Hypertension, unspecified type I10 Hypertension type: unspecified Mixed hyperlipidemia E78.2 Hyperlipidemia type: mixed hyperlipidemia Elevated TSH R79.89 Class 1 obesity with serious comorbidity and body mass index (BMI) of 34.0 to 3 4.9 in adult, unspecified obesity type E66.811; Z68.34 Body mass index: BMI 34.0-34.9 Obesity classification: adult class 1 (BMI 30 - 34.9) Obesity type: unspecified obesity type Serious obesity comorbidity presence: with serious comorbidity Chronic idiopathic constipation K59.04 Overactive bladder N32.81 Anemia, unspecified type D64.9 Anemia type: unspecified type Tooth infection K04.7 Gastroesophageal reflux disease with esophagitis without hemorrhage K21.00 Esophagitis bleeding: without hemorrhage Esophagitis presence: with esophagitis Prediabetes R73.03 Depression, unspecified depression type F32.A Depression Type: unspecified Chronic pain of left knee M25.562; G89.29 Chronicity: chronic Time Spent (min) 39 Assessment & Plan Assessment & Plan (1) Schizophrenia: Code(s): F20.9 - Schizophrenia, unspecified Category: Medical Qualifiers: Schizophrenia type: unspecified Qualified Code(s): F20.9 - Schizophrenia, unspecified Plan: Continue olanzapine 7.5 mg daily Follow up with Psychiatry as scheduled (2) Hypertension: Code(s): I10 - Essential (primary) hypertension Category: Medical Qualifiers: Hypertension type: unspecified Qualified Code(s): I10 - Essential (primary) hypertension Plan: Blood pressure within goal Reinforced low-salt diet Continue amlodipine 5 mg daily (3) HLD (hyperlipidemia): Code(s): E78.5 - Hyperlipidemia, unspecified Category: Medical Qualifiers: Hyperlipidemia type: mixed hyperlipidemia Qualified Code(s): E78.2 - Mixed hyperlipidemia Plan: tri 191, t-chol 203, ldl 104, hdl 61 Reinforced low-cholesterol diet and activity as tolerated (4) Elevated TSH: Code(s): R79.89 - Other specified abnormal findings of blood chemistry Category: Medical Plan: tsh 3.71, Free t4 0.84 euthyroid Will monitor TFT (5) Obesity: Code(s): E66.9 - Obesity, unspecified Category: Medical Qualifiers: Body mass index: BMI 34.0-34.9 Obesity classification: adult class 1 (BMI 30 - 34.9) Obesity type: unspecified obesity type Serious obesity hever rbidity presence: with serious comorbidity Qualified Code(s): E66.811 - Obesity, class 1; Z68.34 - Body mass index [BMI] 34.0-34.9, adult Plan: Discussed lifestyle modifications including dietary changes and physical activity (6) Chronic idiopathic constipation: Code(s): K59.04 - Chronic idiopathic constipation Category: Medical Plan: Increase fiber in diet (fruits/vegetables 4-5 servings daily) Increase fluid intake and decrease caffeine/energy drinks (may cause mild dehydration) Encouraged regular exercise (e.g., biking, walking, running) (7) Overactive bladder: Code(s): N32.81 - Overactive bladder Category: Medical Plan: CONTINUE Gemtesa 75 mg daily Follow up with Urology as scheduled (8) Anemia: Code(s): D64.9 - Anemia, unspecified Category: Medical Qualifiers: Anemia type: unspecified type Qualified Code(s): D64.9 - Anemia, unspecified Plan: Stable H&H Continue ferrous sulfate 325 mg daily We will monitor CBC (9) Tooth infection: Code(s): K04.7 - Periapical abscess without sinus Category: Medical Plan: Augmentin 875-125 mg b.i.d. x7 days ordered (10) GERD (gastroesophageal reflux disease): Code(s): K21.9 - Gastro-esophageal reflux disease without esophagitis Category: Medical Qualifiers: Esophagitis bleeding: without hemorrhage Esophagitis presence: with esophagitis Qualified Code(s): K21.00 - Gastro-esophageal reflux disease with esophagitis, without bleeding Plan: Do not eat meals or drink carbonated beverages within 3 hr of bedtime Decrease the amount of fried, fatty, and spicy foods to decrease gastric acid production Raise the head of the bed using 4 to 6-inch blocks, especially if nocturnal symptoms are present Lose weight if indicated; avoid tight-fitting clothing, especially around the waist Avoid foods that relax the Lower esophageal sphincter (chocolate, peppermint, high-fat foods etc.,) Continue omeprazole 40 mg daily (11) Prediabetes: Code(s): R73.03 - Prediabetes Category: Medical Plan: A1c 6.2 % Reinforced low sugar/carbohydrate diet and activity as tolerated (12) Depression: Code(s): F32.A - Depression, unspecified Category: Medical Qualifiers: Depression Type: unspecified Qualified Code(s): F32.A - Depression, unspecified Plan: Continue bupropion XL 300 mg daily, citalopram 20 mg daily Follow up with Psychiatry as scheduled (13) Left knee pain: Code(s): M25.562 - Pain in left knee Category: Medical Qualifiers: Chronicity: chronic Qualified Code(s): M25.562 - Pain in left knee; G 89.29 - Other chronic pain Plan: Left knee giving out intermittently and causing recurrent falls, last time 4 months ago Reports receiving getting cortisone injects in the past with positive effect Will refer the pain to orthopedics Orders: Orders Hemoglobin A1c 01/11/25 E66.9 - Obesity, unspecified, E78.5 - Hyperlipidemia, unspecified, F20.9 - Schizophrenia, unspecified, I10 - Essential (primary) hypertension, K21.00 - Gastro-esophageal reflux disease with esophagitis, without bleeding, N32.81 - Overactive bladder, R53.82 - Chronic fatigue, unspecified, R79.89 - Other specified abnormal findings of blood chemistry Comprehensive [place]. Panel Fast 01/11/25 E66.9 - Obesity, unspecified, E78.5 - Hyperlipidemia, unspecified, F20.9 - Schizophrenia, unspecified, I10 - Essential (primary) hypertension, K21.00 - Gastro-esophageal reflux disease with esophagitis, without bleeding, N32.81 - Overactive bladder, R53.82 - Chronic fatigue, unspecified, R79.89 - Other specified abnormal findings of blood chem istry Lipid Panel 01/11/25 E66.9 - Obesity, unspecified, E78.5 - Hyperlipidemia, unspecified, F20.9 - Schizophrenia, unspecified, I10 - Essential (primary) hypertension, K21.00 - Gastro-esophageal reflux disease with esophagitis, without bleeding, N32.81 - Overactive bladder, R53.82 - Chronic fatigue, unspecified, R79.89 - Other specified abnormal findings of blood chemistry TSH reflex Free T4 01/11/25 E66.9 - Obesity, unspecified, E78.5 - Hyperlipidemia, unspecified, F20.9 - Schizophrenia, unspecified, I10 - Essential (primary) hypertension, K21.00 - Gastro-esophageal reflux disease with esophagitis, without bleeding, N32.81 - Overactive bladder, R53.82 - Chronic fatigue, unspecified, R79.89 - Other specified abnormal findings of blood chemistry UA CC w/rflx Micro + Cult 01/11/25 E66.9 - Obesity, unspecified, E78.5 - Hyperlipidemia, unspecified, F20.9 - Schizophrenia, unspecified, I10 - Essential (primary) hypertension, K21.00 - Gastro-esophageal reflux disease with esophagitis, without bleeding, N32.81 - Overactive bladder, R53.82 - Chronic fatigue, unspecified, R79.89 - Other specified abnormal findings of blood chemistry Free T4 (Free Thyroxine) 01/11/25 E66.9 - Obesity, unspecified, E78.5 - Hyperlipidemia, unspecified, F20.9 - Schizophrenia, unspecified, I10 - Essential (primary) hypertension, K21.00 - Gastro-esophageal reflux disease with esophagitis, without bleeding, N32.81 - Overactive bladder, R53.82 - Chronic fatigue, unspecified, R79.89 - Other specified abnormal findings of blood chemistry Vitamin D 25-OH Total 01/11/25 E66.9 - Obesity, unspecified, E78.5 - Hyperlipidemia, unspecified, F20.9 - Schizophrenia, unspecified, I10 - Essential (primary) hypertension, K21.00 - Gastro-esophageal reflux disease with esophagitis, without bleeding, N32.81 - Overactive bladder, R53.82 - Chronic fatigue, unspecified, R79.89 - Other specified abnormal findings of blood chemistry Vitamin B12 and Folate 01/11/25 E66.9 - Obesity, unspecified, E78.5 - Hyperlipidemia, unspecified, F20.9 - Schizophrenia, unspecified, I10 - Essential (primary) hypertension, K21.00 - Gastro-esophageal reflux disease with esophagitis, without bleeding, N32.81 - Overactive bladder, R53.82 - Chronic fatigue, unspecified, R79.89 - Other specified abnormal findings of blood chemistry Referrals Orthopedics Referral G89.29 - Other chronic pain, M25.562 - Pain in left knee Medications: New amoxicillin-pot clavulanate 875-125 mg 1 tab PO Q12H 14 tabs 0RF 7 days Refilled loratadine (Allergy Relief (loratadine)) 10 mg PO DAILY PRN 30 tabs 0RF allergy symptoms
--- OUTSIDE RECORDS SUMMARY | 2025-01-11 14:55 | XMS_ITS | Patient Health Record ---
Author Organization [facility] Zuleika shereen [place] Address [address] [place] [address] Care Team Providers Care Signals Officer Name Role Phone Abelardo ROSALES, Ishmael Primary Care Provider Kelsey Floyd Unavailable [phone] Allergies No Known Allergies Reason For Referral [...] Problem Acquired hammer toe of left foot ([id number]) Other hammer toe(s) (acquired), left foot (M20.42) Active confirmed Problem [id number] Gouty arthritis of left foot (M10.9) Active confirmed Problem Localized, primary osteoarthritis of the ankle and/or foot ([id number]) Arthritis of joint of lesser toe, left (M19.072) Active confirmed Vital Signs Height 5 ft 4 in in 04/22/2024 Weight 184 lbs 04/22/2024 BMI 31.58 kg/m2 04/22/2024 [facility]counters [facility]counter [facility] Date [facility] [address] [facility] Kelsey Hess Pain in left toe(s) M79.675 ; Other hammer toe(s) (acquired), left foot M20.42 ; Arthritis of joint of lesser toe, left M19.072 ; Subluxation of metatarsophalangeal joint of toe, initial encounter S93.149A ; Onychomycosis B35.1 ; Pain in right toe(s) M79.674 and Gouty arthritis of left foot M10.9 [facility] [address] 01/20/2024 Kelsey Hess Assessments Encounter Date Diagnosis [...] Date Coverage End Date [employer] [id number] [place] [phone] [id number] Lindsay Mace Self - patient is the insured Medical (General) History Medical History History ICD Code Anemia Arthritis Knee Pain Cataracts Depression Headaches/Migraines High blood pressure Kidney disease Osteoporosis Psychiatric disorder Sciatica Mumps Chicken pox Surgical History Surgery Date(Month/Year) gall stones
== END 2025-01-11 14:38 | disposition home or self-care (01) ==
LOC: HO.HMCH 13:32
DX: F20.9 Schizophrenia, unspecified (principal); I10 Essential (primary) hypertension; E78.2 Mixed hyperlipidemia; R79.89 Other specified abnormal findings of blood chemistry; E66.811 Obesity, class 1; Z68.34 Body mass index [BMI] 34.0-34.9, adult; K59.04 Chronic idiopathic constipation; N32.81 Overactive bladder; D64.9 Anemia, unspecified; K04.7 Periapical abscess without sinus; K21.00 Gastro-esophageal reflux disease with esophagitis, without bleeding; R73.03 Prediabetes; F32.A Depression, unspecified; M25.562 Pain in left knee; G89.29 Other chronic pain

== ENCOUNTER → 2025-01-11 13:31 | Outpatient (BNVA) | payer MEDICARE, SELFPAY | DX: M17.0 Bilateral primary osteoarthritis of knee (principal); F20.9 Schizophrenia, unspecified; I10 Essential (primary) hypertension; E78.2 Mixed hyperlipidemia; R79.89 Other specified abnormal findings of blood chemistry; E66.811 Obesity, class 1; K59.04 Chronic idiopathic constipation; N32.81 Overactive bladder; D64.9 Anemia, unspecified; K04.7 Periapical abscess without sinus; K21.00 Gastro-esophageal reflux disease with esophagitis, without bleeding; R73.03 Prediabetes; F32.A Depression, unspecified; M25.562 Pain in left knee; G89.29 Other chronic pain; Z68.34 Body mass index [BMI] 34.0-34.9, adult | CPT/HCPCS: 96127; 99212 ==

== ENCOUNTER → 2025-01-12 07:49 | Outpatient (REF) | payer MEDICARE, SELFPAY ==
--- NOTE | 2025-01-12 07:52 | CA_ITS ---
Transthoracic Echocardiogram Patient (Last, First, Middle): Lindsay Mace L Gender: Female Date of : 1950 Age: 74 Procedure Date: 01/12/2025 Procedure Type: Transthoracic Echocardiogram Location: OP Height: 162.56 cm Weight: 91.63 kg BSA: 1.96 m2 Heart Rate: bpm BP: 112 / 76 mmHg Regulatory Coordinator: CP/MORALES Referring MD: Trell Key MD Electronic Organ Technician: Trell Key MD Symptoms: R06.00 - Dyspnea, unspecified Study Quality: Adequate ECG Rhythm: Sinus Conclusions: - Normal left ventricular size, thickness, systolic function, and wall motion. The visually estimated ejection fraction is between 55-60%. Abnormal diastolic function is noted. Spectral Doppler is indicative of a pseudonormal filling pattern. Elevated filling pressures. - Normal right ventricular cavity size and systolic function. Findings Left Ventricle Normal left ventricular size, thickness, systolic function, and wall motion. The visually estimated ejection fraction is between 55-60%. Abnormal diastolic function is noted. Spectral Doppler is indicative of a pseudonormal filling pattern. Elevated filling pressures. Right Ventricle Normal right ventricular cavity size and systolic function. Atria The left atrium is likely dilated. The right atrium is normal in size. Aortic Valve Normal aortic valve structure and function. There is no aortic valve stenosis. There is no aortic valve regurgitation. Mitral Valve The mitral valve appears normal. There is no mitral valve regurgitation. There is no mitral valve stenosis. Pulmonic Valve The pulmonic valve is normal. There is trace pulmonic valve regurgitation. Tricuspid Valve Normal tricuspid valve structure. There is no tricuspid valve regurgitation. Normal right atrial pressure. There is no evidence of pulmonary hypertension. Great Vessels All visible segments of the aorta are normal in size. Venous The inferior vena cava is normal in size and collapses greater than 50% with inspiration. Pericardium/Pleural There is no evidence of pericardial effusion. Prior Study Comparison Changes noted compared to prior study dated: 07/03/2018. Elevated filling pressures. Measurements 2D Linear Measurements IVSd: 1.04 0.6-0.9/0.6-1.0 cm LVIDd: 3.87 3.9-5.3/4.2-5.9 cm LVIDd Index: 1.97 2.4-3.2/2.2-3.1 cm/m2 LVIDs: 2.54 2.0-3.6 cm LVPWd: 0.86 0.7-1.1 cm LA Diam: 2.50 2.7-3.8/3.0-4.0 cm LAIDs Index: 1.28 1.5-2.3 cm/m2 LV Mass: 139.30 67-162/88-224 g LV Mass Index: 71.07 43-95/49-115 g/m2 LVOT Diam: 1.90 3.0+(-)1.3 cm 2D Systolic Function EF 4C: 59.70 >55% EF 2C: 68.00 >55% EF BiP: 62.70 >55% Mitral Valve MV Pk E: 1.15 MV PK A: 1.14 MV Decel Time: 208.00 E/A: 1.00 E'Lateral: 6.31 E'Medial: 6.53 E/E' Med: 17.60 E/E' Lat: 18.20 PHT: 61.00 MVA PHT: 3.61 Decel [place]: 5.52 Aortic Valve AoV Pk Migel: 1.34 AoV Mn Migel: 1.00 AoV VTI: 0.31 AoV Pk Grad: 7.00 Aov Mn Grad: 4.00 CHELI Cont.VTI: 1.96 LVOT LVOT Pk Migel: 1.03 LVOT Mn Migel: 0.73 LVOT VTI: 0.21 LVOT Pk Grad: 4.00 LVOT Mn Grad: 2.00 LVOT Diam: 1.90 LVOT Area: 2.84 Diastolic Function MV Pk E: 1.15 MV Pk A: 1.14 E/A: 1.00 E'Medial: 6.53 E/E' Med: 17.60 E' Laterial: 6.31 E/E' Lat: 18.20 Right Ventricle TAPSE (mm): 23.50 TVS' Migel: 12.30 Tricuspid Valve TR Pk Migel: 2.19 TR Pk Grad: 19.00 RA Press: 3.00 RVSP: 22.00 Great Vessels Aorta Sinus of Valsalva: 3.10 2.0-3.5 cm Ao Asc: 3.00 2.1-3.4 cm Updated in Other Vendor System with Status of Final Trell Key MD electronically signed on 01/13/2025 9:52:23 AM with status of Final
--- OUTSIDE RECORDS SUMMARY | 2025-01-12 07:52 | XMS_ITS | Patient Health Record ---
Author Organization [facility] Zuleika shereen ShahGary Address [address] [place] [address] Care Team Providers Care Public Address System Operator Name Role Phone Abelardo ROSALES, Ishmael Primary Care Provider Kelsey Floyd Unavailable [phone] Allergies No Known Allergies Reason For Referral [...] Problem Acquired hammer toe of left foot ([id number]) Other hammer toe(s) (acquired), left foot (M20.42) Active confirmed Problem [id number] Gouty arthritis of left foot (M10.9) Active confirmed Problem Localized, primary osteoarthritis of the ankle and/or foot (228861283) Arthritis of joint of lesser toe, left (M19.072) Active confirmed Vital Signs Height 5 ft 4 in in 04/22/2024 Weight 184 lbs 04/22/2024 BMI 31.58 kg/m2 04/22/2024 Encounters Encounter Location Date Provider Diagnosis [facility] [address] 04/22/2024 Kelsey Hess Pain in left toe(s) M79.675 ; Other hammer toe(s) (acquired), left foot M20.42 ; Arthritis of joint of lesser toe, left M19.072 ; Subluxation of metatarsophalangeal joint of toe, initial encounter S93.149A ; Onychomycosis B35.1 ; Pain in right toe(s) M79.674 and Gouty arthritis of left foot M10.9 [facility] [address] 01/20/2024 Kelsey Hess Assessments Encounter Date Diagnosis [...] Date Coverage End Date [employer] [address] [place] [phone] [id number] Lindsay Mace Self - patient is the insured Medical (General) History Medical History History ICD Code Anemia Arthritis Knee Pain Cataracts Depression Headaches/Migraines High blood pressure Kidney disease Osteoporosis Psychiatric disorder Sciatica Mumps Chicken pox Surgical History Surgery Date(Month/Year) gall stones
== END ==
LOC: HO.CARD 07:49
PROVIDERS: Visit Provider Internal Medicine Cardiovascular Disease
DX: R06.00 Dyspnea, unspecified (principal)
CPT/HCPCS: 93306

== ENCOUNTER → 2025-01-12 07:52 | Outpatient (BNV) | payer MEDICARE, SELFPAY | PROVIDERS: Visit Provider Internal Medicine Cardiovascular Disease | DX: I51.89 Other ill-defined heart diseases (principal) | CPT/HCPCS: 93306 ==

== ENCOUNTER 2025-03-23 10:30 | Outpatient (REF) | payer MEDICARE, SELFPAY ==
[2025-03-23 11:18] LABS: Hemoglobin A1C 122.6767 umol/L; Total Hemoglobin (HGBA1C) 2661.0364 umol/L
[2025-03-23 12:22] LABS: Alanine Aminotransferase 21 U/L (0-31); Albumin Level 4.1 g/dL (3.5-5.0); Alkaline Phosphatase 68 U/L (39-117); Anion Gap 14 (12-20); Aspartate Amino Transferase 24 U/L (5-31); Blood Urea Nitrogen 15 mg/dL (9-16); Calcium 8.9 mg/dL (8.4-10.2); Carbon Dioxide 23 mmol/L (22-29); Chloride 107 mmol/L (96-108); Cholesterol 157 mg/dL (<200); Estimated Glomerular Filt Rate 50; Free T4 (Free Thyroxine) 0.92 ng/dL (0.71-1.85); HDL Cholesterol 48 mg/dL (>40); Potassium 4.2 mmol/L (3.3-5.1); Sodium 140 mmol/L (135-145); Total Protein 6.9 g/dL (6.5-8.0); Triglycerides 103 mg/dL (<150)
[2025-03-23 12:24] LABS: Folate 6.7 ng/mL (> or = 4.0); Vitamin B12 952 pg/mL (200-900)
== END 2025-03-23 10:31 | disposition home or self-care (01) ==
LOC: HO.LAB 10:30
DX: I10 Essential (primary) hypertension (principal); F20.9 Schizophrenia, unspecified; R79.89 Other specified abnormal findings of blood chemistry; E66.9 Obesity, unspecified; K21.00 Gastro-esophageal reflux disease with esophagitis, without bleeding; N32.81 Overactive bladder; E78.5 Hyperlipidemia, unspecified; R53.82 Chronic fatigue, unspecified
CPT/HCPCS: 36415; 80053; 80061; 82306; 82607; 82746; 83036; 84439; 84443

== ENCOUNTER 2025-03-29 13:00 | Outpatient (AMB) | payer MEDICARE, MEDICAID, SELFPAY ==
[2025-03-29 13:26] VITALS: BP 132/68; PULSE 86; BMI 34.8
--- NOTE | 2025-03-29 13:26 | MHC.OFFVIS ---
Vital Signs 03/29/25 13:26 Height 5 ft 4 in Weight 202 lb 13.204 oz BMI 34.8 BP 132/68 Blood Pressure Location Lt brachial Position Sitting Pulse 86 Pulse Source Pulse Oximeter Intake Visit Reasons: 4 mth f/up-echo Accompanied by: Self / Same As Patient Allergies No Known Allergies (No Known Allergies*) Allergy (Verified 03/29/25 13:30) Medication List - Last Reconciled 03/29/25 by Irasema Medrano MANAGER APPLICATION DEVELOPMENT-C bupropion HCl XL 300 mg PO DAILY carbamazepine 200 mg PO BID citalopram 20 mg PO DAILY cyanocobalamin (vitamin B-12) 1,000 mcg sublingual DAILY cyanocobalamin (vitamin B-12) 1,000 mcg sublingual DAILY diaper,brief,adult,disposable ([place] Choice Comfort Protect Adult Diaper X-Large) As directed ferrous sulfate 325 mg PO DAILY fluticasone propionate 50 mcg/actuation 1 spray intranasal BID gabapentin 600 mg (2 x 300 mg) PO BID 90 days loratadine (Allergy Relief (loratadine)) 10 mg PO DAILY PRN losartan 25 mg PO DAILY mirtazapine 7.5 mg PO BEDTIME olanzapine 7.5 mg PO DAILY omeprazole 40 mg PO DAILY [pull ups twice per day as needed] HPI HPI 4 mth f/up-echo: Details: Lindsay is a 74-year-old female with past medical history of schizophrenia, prediabetes, hypertension, hyperlipidemia, obesity, who presents for follow-up. Today she reports that she has been getting some sharp pains in her chest that occur mostly at night. She says she does not sleep well during the night and she is usually awake when this occurs. It last sec and resolves. It does not wake her from sleep. She does not get chest discomfort in the daytime. She does have shortness of breath with walking that she says is newer for her in the last 6 months. No PND, orthopnea or edema. No lightheadedness, presyncope, syncope, falls. She reports compliance with medications. She tells me that her father had a four-vessel coronary artery bypass grafting done at age 75, and her sister who is 3 years older had recent coronary stent placement. [facility] Medical History Herniation of left side of L4-L5 intervertebral disc Bilateral primary osteoarthritis of knee Encounter for initial annual wellness visit (AWV) in Medicare patient Schizophrenia Surgical History History of esophagogastroduodenoscopy (EGD) Hx of colonoscopy History of laparoscopic cholecystectomy History of cardiac catheterization History of cataract surgery History of throat surgery History of bladder surgery Family History Father Past heart attack Diabetes Mother Past heart attack Paternal Grandmother Stomach cancer Other Mental health disorder Social History Household Members: None Housing: Apartment Are you a primary child care education coordinator to a significant other at home: No Do you presently have visiting nurse or other home services: No Alcohol intake: never Patient Tobacco Use Status: Never used Tobacco Tobacco use type: Cigarette e-Cigarette/Vaping Use: Never Used Second Hand Smoke Exposure: No service: No Current occupational status: disabled Cognitive needs: Yes (cane) Hearing needs: No Vision needs: No Review of Systems Const All systems reviewed & are unremarkable except as noted in HPI and below Denies daytime sleepiness, Denies difficulty sleeping, Denies snoring, Denies stops breathing during sleep and Denies weakness Card Reports chest pain, Denies rapid heart rate, Denies irregular heart rhythm, Denies claudication, Denies leg edema, Denies lightheadedness, Denies palpitations, Reports dyspnea, Reports dyspnea on exertion, Denies orthopnea, Denies paroxysmal nocturnal dyspnea and Denies slow heart rate Resp Denies cough, Reports dyspnea, Reports dyspnea on exertion and Denies snoring GI Reports no additional complaints, Denies hematochezia, Denies change in stool character and Denies dyspepsia Musc Denies abnormal gait, Denies muscle weakness and Denies numbness Neuro Denies abnormal gait, Denies numbness and Denies weakness Endo Denies palpitations Physical Exam Vital Signs: Last Vital Signs Pulse 86 03/29/25 13:26 BP 132/68 03/29/25 13:26 BMI result Body Mass Index 34.8 Const Other: pale skin tone. obese General: cooperative, healthy appearing, comfortable and no acute distress Orientation/consciousness: patient oriented x3 Neck Neck: Yes normal visual inspection Resp Effort & Inspection: normal respiratory effort Auscultation: clear to auscultation bilaterally, no crackles, no rales, no rhonchi and no wheezes Cardio Rate: regular rate Rhythm: regular rhythm Heart sounds: S1 normal heart sound present, S2 normal heart sound present, no gallops, no murmurs and no rubs Neuro General: patient oriented x3 Extrem General: Yes normal to inspection, No no pedal edema and No calf tenderness Psych Appearance: grossly normal Mental Status: mental status grossly normal Speech and movement: Normal speech and movement present Assessment & Plan Assessment & Plan (1) Chest pain: Code(s): R07.9 - Chest pain, unspecified Category: Medical Plan: Reports of atypical sounding chest discomfort. Also reports of shortness of breath with exertion which could be cardiac. She does have cardiac risk factors of obesity, hypertension, hyperlipidemia, prediabetes, family history. Echocardiogram done 01/12/2025 showed EF 55-60%, normal RV. EKG done 12/02/2024 showed sinus rhythm with septal Q-wave, rate 79. Will check a pharmacological nuclear stress test for further evaluation. She ambulates with a cane and tells me she will not be able to walk on a treadmill. Plan to call her with results. Cardiology follow-up will be determined following test results. If test is normal then we can see her as needed. If stress test abnormal then further evaluation will be warranted. Continue with risk factor modification either way. (2) Shortness of breath: Code(s): R06.02 - Shortness of breath Category: Medical Plan: As above (3) Hypertension: Code(s): I10 - Essential (primary) hypertension Category: Medical Qualifiers: Hypertension type: unspecified Qualified Code(s): I10 - Essential (primary) hypertension Plan: Blood pressure goal less than 130/80. Controlled at this time. Continue losartan. Plan Time spent on chart review, documentation, interview and assessment Orders: Orders CA lexiscan stress w morena Today R06.00 - Dyspnea, unspecified, R07.9 - Chest pain, unspecified NM cardiolite stress test Today R06.02 - Shortness of breath, R07.9 - Chest pain, unspecified Coding Level of Care Code Est Pt Level 4 (30638) Complex EM visit Add On G2211 Diagnoses Chest pain R07.9 Shortness of breath R06.02 Hypertension, unspecified type I10 Hypertension type: unspecified Time Spent (min) 28
--- OUTSIDE RECORDS SUMMARY | 2025-03-29 15:10 | XMS_ITS | Patient Health Record ---
Author Organization [facility] Address [address] [place] [address] Care Team Providers Care Supervisor Loading Name Role Phone Ishmael Zhou MD Primary Care Provider Unavaila Guillermo Feliz Jr Unavailable Reason For Referral No Information Medications Medication SIG (Take, Route, Frequency, Duration) Notes Start Date End Date Status Wellbutrin XL 300 MG 1 tablet in the mor mehnaz Orally Once a day Active Colyte with Flavor Packs 240 GM As directed Orally Over the specified time. for 1 day(s) 03/18/2019 Active buPROPion HCl ER (XL) 300 MG TK 1 T PO Q AM Oral Once a day Active OLANZapine 7.5 MG TK 1 T PO HS Oral for 30 Active Colyte with Flavor Packs 240 GM As directed Orally Over the specified time. for 1 day(s) 03/18/2019 Active Colyte with Flavor Packs 240 GM As directed Orally Over the specified time. for 1 day(s) 01/01/2019 Active FeroSul 325 (65 Fe) MG TK 1 T PO BID Ora l twice a day Active Citalopram Hydrobromide 20 MG TK 1 T PO QD Oral Once a day Active Cyanocobalamin 1000 MCG/15ML 1 ml Injection monthly Active Immunizations Vaccine Route Administration Date Status Comme nts Flu vaccine no Preserv 3 and > Unknown 03/26/2017 Admin istered Influenza Unknown 05/01/2018 Administered Problems Problem Type SNOMED Code ICD Code Onset Dates Problem Status W/U Status Risk Notes Problem 528081829 Colon cancer screening (Z12.11) Active confirmed Problem 162585569 Gastroesophageal reflux disease with esophagitis (K21.0) Active confirmed Problem 63150188 Iron deficiency anemia, unspecified iron deficiency anemia type (D50.9) Active confirmed Problem 85926538 Hypertension, unspecified type (I10) Active confirmed Plan Of Treatment Future Test Test Name Order Date COLONOSCOPY 01/01/2019 Insurance Providers Payer Name Payer Address Payer Phone Subscriber Number Group Number Insured Name Patient Relationship to Insured Coverage Start Date Coverage End Date MEDICARE OF [place] [address] [place] [address] [id number] ABEL DUMONT Self - patient is the insured MED[employer] OF [employer] [facility] [address] [place] [address] [id number] ABEL DUMONT Self - patient is the insured Medical (General) History Medical History History ICD Code colonoscopy 11-17-2008 depression history of postprandial vomiting which w as associated with nausea Denies ND,DM,CVA,Lung disease,renal dise ase sciatica urinary incontinence Surgical History Surgery Date(Month/Year) cholecystectomy 11/24/2017 Bladder suspension
--- OUTSIDE RECORDS SUMMARY | 2025-03-29 15:10 | XMS_ITS | Patient Health Record ---
Author Organization [facility] Zuleika shereen Vega Address [address] [place] [address] Care Team Providers Care Manufacturing Process Engineer Name Role Phone Abelardo ROSALES, Ishmael Primary Care Provider Kelsey Floyd Unavailable [phone] Allergies No Known Allergies Reason For Referral [...] Problem Acquired hammer toe of left foot ([id number]) Other hammer toe(s) (acquired), left foot (M20.42) Active confirmed Problem Gouty arthritis of left foot (1657627471674161) Gouty arthritis of left foot (M10.9) Active confirmed Problem Localized, primary osteoarthritis of the ankle and/or foot (499735615) Arthritis of joint of lesser toe, left (M19.072) Active confirmed Vital Signs Height 5 ft 4 in in 04/22/2024 Weight 184 lbs 04/22/2024 BMI 31.58 kg/m2 04/22/2024 Encounters Encounter Location Date Provider Diagnosis [facility] [address] [place] [address] 04/22/2024 Kelsey Hess Pain in left toe(s) [...] Date Coverage End Date [employer] [address] [place] [phone] [id number] Lindsay Mace Self - patient is the insured Medical (General) History Medical History History ICD Code Anemia Arthritis Knee Pain Cataracts Depression Headaches/Migraines High blood pressure Kidney disease Osteoporosis Psychiatric disorder Sciatica Mumps Chicken pox Surgical History Surgery Date(Month/Year) gall stones
== END 2025-03-29 13:54 | disposition home or self-care (01) ==
LOC: HO.HCS 13:01
PROVIDERS: PCP Internal Medicine; Visit Provider Nurse Practitioner Family
DX: R07.9 Chest pain, unspecified (principal); R06.02 Shortness of breath; I10 Essential (primary) hypertension
CPT/HCPCS: 99214; G2211

== ENCOUNTER → 2025-03-29 13:00 | Outpatient (BNVA) | payer MEDICARE, MEDICAID, SELFPAY | PROVIDERS: PCP Internal Medicine; Visit Provider Nurse Practitioner Family | DX: R06.02 Shortness of breath (principal); I10 Essential (primary) hypertension; R07.9 Chest pain, unspecified; R06.00 Dyspnea, unspecified | CPT/HCPCS: 99212 ==

== ENCOUNTER 2025-04-19 12:53 | Outpatient (AMB) | payer MEDICARE, SELFPAY ==
[2025-04-19 12:55] VITALS: BP 132/78; PULSE 77; RESP 18; TEMP 36.2; O2SAT 98; BMI 33.7
--- NOTE | 2025-04-19 12:55 | MHC.PC.OV ---
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 Accompanied by: Self / Same As Patient Allergies No Known Allergies (No Known Allergies*) Allergy (Verified 04/19/25 13:38) Medication List - Last Reconciled 04/19/25 by SANDI Crenshaw bupropion HCl XL 300 mg PO DAILY carbamazepine 200 mg PO BID citalopram 20 mg PO DAILY cyanocobalamin (vitamin B-12) 1,000 mcg sublingual DAILY cyanocobalamin (vitamin B-12) 1,000 mcg sublingual DAILY diaper,brief,adult,disposable ([place] [employer] Comfort Protect Adult Diaper X-Large) As directed ferrous sulfate 325 mg PO DAILY fluticasone propionate 50 mcg/actuation 1 spray intranasal BID gabapentin 600 mg (2 x 300 mg) PO BID 90 days loratadine (Allergy Relief (loratadine)) 10 mg PO DAILY PRN losartan 25 mg PO DAILY mirtazapine 7.5 mg PO BEDTIME olanzapine 7.5 mg PO DAILY omeprazole 40 mg PO DAILY [pull ups twice per day as needed] Tobacco use date assessed: 04/19/25 Fall risk assessment: No Falls in past year Last assessed Fall Risk: 04/19/25 Dental Screening Dental Screen Date: 04/19/25 Did you have a dental visit in the last 12 months?: No Did you have a dental problem in the last 6 months where you did not have access to dental care?: No Was dental information given to patient?: No HPI htn, anemia, hld HPI Details The patient is a 74-year-old female presenting with jaw pain due to infection and dyspnea. The jaw infection has been present for an unspecified duration, and the patient has not yet seen a dentist due to financial constraints. Antibiotics have been prescribed as a temporary measure, but the patient is aware that this does not resolve the underlying issue. The patient reports dyspnea, which has been affecting her daily activities, she is being followed by cardiology who wants the patient to complete a cardiac stress test. The patient is concerns that her claustrophobia will be on issue. Explained the the patient that she will not be placed in a machine to do this test. Reports that she will contact them to go through with the test. The patient has a history of anemia, with recent lab results indicating a drop in hemoglobin from 12 to 9.8 g/dL. She is currently taking iron supplements, which will be increased to twice daily to address the anemia. She patient denies noticing any blood in the stool. She report that she is compliant with taking the iron supplement. The patient verbalized her financial difficulties/stresses, and reports that she has a hard time paying all the copays to go to the other doctors. She is requesting a scooter so she could start visiting the mall again. Reports that he left knee pain and giving out and dyspnea with exertion prevents her from going to the mall because she needs to sit and rest frequently. Vitamin B12 levels are elevated, and the patient receives monthly B12 injections in addition to oral supplements. The oral B12 supplementation will be adjusted to every other day to manage the elevated levels. A heart murmur was noted during the examination, but no further details were provided. [facility] Medical History Herniation of left side of L4-L5 intervertebral disc Bilateral primary osteoarthritis of knee Encounter for initial annual wellness visit (AWV) in Medicare patient Schizophrenia Surgical History History of esophagogastroduodenoscopy (EGD) Hx of colonoscopy History of laparoscopic cholecystectomy History of cardiac catheterization History of cataract surgery History of throat surgery History of bladder surgery Family History Father Past heart attack Diabetes Mother Past heart attack Paternal Grandmother Stomach cancer Other Mental health disorder Social History Household Members: None Housing: Apartment Are you a primary healthcare consultant to a significant other at home: No Do you presently have visiting nurse or other home services: No Alcohol intake: never Patient Tobacco Use Status: Never used Tobacco Tobacco use type: Cigarette e-Cigarette/Vaping Use: Never Used Second Hand Smoke Exposure: No service: No Current occupational status: disabled Cognitive needs: Yes (cane) Hearing needs: No Vision needs: No Questionnaire Thrive Questionnaire Date Thrive assessed: 01/11/25 I am a: Patient What is your living situation today?: I have a steady place to live Within the past 12 months, did the food you bought not last and you didn't have the money to get more?: Often true Within the past 12 months, did you worry whether your food would run out before you got money to buy more?: Sometimes True Do you have trouble paying for medicines?: Yes Do you have trouble getting transportation to medical appointments?: No Do you have trouble paying your heating and electricity bill?: No Do you have trouble taking care of your child, family member or friend?: No Do you have trouble with day-to-day activities such as bathing, preparing meals, shopping, managing finances, etc.?: No Are you currently unemployed and looking for a job?: No Are you interested in more education?: No Please select the resources that you would like help with: None Currently or been in a relationship where the following occur: I choose not to answer THRIVE Score: 2 JULIO-7 AMB Questionnaire JULIO-7 Date JULIO - 7 assessed: 01/11/25 Source: Developed by Drs. Jean Marie Granda, Poonam Mcclain, Brennan Duran and colleagues, with an educational leah from [employer]. Review of Systems Const Reports frequent falls (because of left knee given out; this has improved) and Denies headache(s) Eyes Denies loss of vision ENT Reports dental pain (left upper mouth), Denies vertigo, Denies dizziness, Denies headache(s) and Denies sore throat Card Denies chest pain, Denies leg edema and Denies lightheadedness Resp Denies cough, Denies hemoptysis and Denies wheezing GI Denies abdominal pain, Denies melena, Denies constipation, Denies diarrhea and Denies vomiting Denies urinary frequency, Denies dysuria and Reports urinary urgency (overactive bladder) Musc Reports arthralgias (left knee-frequently giving out), Denies joint swelling, Denies numbness and Denies tingling Skin/Breast Denies lesions and Denies rash Neuro Denies Abnormal speech present, Denies behavioral changes, Denies vertigo, Denies dizziness, Reports frequent falls (because of left knee given out; this has improved), Denies headache(s), Denies loss of vision, Denies memory loss, Denies numbness and Denies tingling Psych Denies anxiety, Denies behavioral changes, Reports depression, Denies memory loss and Denies panic attacks Bandar/Lymph Denies easy bleeding and Denies easy bruising Aller/Immun Denies wheezing Physical exam (Primary Care) Vital Signs: Last Vital Signs Temp 97.1 F 04/19/25 12:55 Pulse 77 04/19/25 12:55 Resp 18 04/19/25 12:55 BP 132/78 04/19/25 12:55 Pulse Ox 98 04/19/25 12:55 Oxygen Delivery Method Room Air 04/19/25 12:55 BMI result Body Mass Index 33.7 Tobacco/Smoking Status: Tobacco use Status Tobacco use date assessed 04/19/25 04/19/25 13:01 Patient Tobacco Use Status Never used Tobacco 04/19/25 13:01 Tobacco use type Cigarette 04/19/25 13:01 e-Cigarette/Vaping Use Never Used 04/19/25 13:01 Thrive Assessment: Date of Thrive Assessment Date Thrive assessed 01/11/25 04/19/25 13:01 Currently or been in a relationship where the following occur: I choose not to answer Const General: healthy appearing, no acute distress, alert and awake Nutritional Appearance: well nourished Orientation/consciousness: oriented to person, oriented to place and oriented to time HENMT Ears: TM's normal bilaterally General nose exam: Normal nasal mucous membranes and turbinates present Teeth and gingiva: gingiva abnormal edematous, diffusely erythematous and tender Eyes Conjunctivae: conjunctivae normal Sclerae: sclerae normal Pupils: Equal, round and reactive pupils present Neck Neck: Yes no lymphadenopathy and Yes no JVD Thyroid: Thyroid normal Carotids: no bruits Resp Effort & Inspection: normal respiratory effort and not tachypneic Auscultation: no crackles, no rales, no rhonchi and no wheezes Cardio Rate: regular rate Rhythm: regular rhythm Heart sounds: no murmurs and normal S1 and S2 GI Palpation (GI): Soft to palpation, nontender, no hepatomegaly and no splenomegaly Auscultation: normal bowel sounds Skin General skin exam: no rashes or lesions noted and dry skin Neuro General: oriented to person, oriented to place and oriented to time Cranial nerves: Yes Equal, round and reactive pupils present Speech: No Abnormal speech present Gait exam (Neuro): Normal gait present Motor exam (neuro): no tremor noted Extrem Right upper extremity: full ROM Left upper extremity: full ROM Right lower extremity: full ROM; no edema Left lower extremity: full ROM and knee Details: no tenderness and no swelling; no edema Psych Mental Status: mental status grossly normal Speech and movement: Normal speech and movement present Affect: normal affect Attitude: cooperative Thought process: Normal thought process present Results Reviewed Results Reviewed: Laboratory Tests 03/23/25 04/05/25 10:48 13:40 WBC 8.4 RBC 4.33 Hgb 9.8 L Hct 31.8 L MCV 73.4 L MCH 22.6 L MCHC 30.8 L RDW 16.8 H Plt Count 316 Sodium 140 Potassium 4.3 Chloride 107 Carbon Dioxide 25 Anion Gap 12 BUN 20 H Creatinine 1.16 Estim Creat Clear Calc 47.6 Estimated GFR 46 Random Glucose 199 H Fasting Glucose 142 H Estimat Average Glucose 137 Hemoglobin A1c % 6.4 H Calcium 9.3 Ferritin 15 Total Bilirubin 0.2 AST 27 ALT 23 Alkaline Phosphatase 73 Total Protein 7.1 Albumin 4.2 Triglycerides 103 Cholesterol 157 LDL Cholesterol, Calc 89 HDL Cholesterol 48 Vitamin B12 952 H 25-OH Vitamin D Total 24.7 L Folate 6.7 TSH 5.14 H Free T4 0.92 Coding Level of Care Code Est Pt Level 4 (18988) Diagnoses Schizophrenia, unspecified type F20.9 Schizophrenia type: unspecified Hypertension, unspecified type I10 Hypertension type: unspecified Mixed hyperlipidemia E78.2 Hyperlipidemia type: mixed hyperlipidemia Elevated TSH R79.89 Class 1 obesity with serious comorbidity and body mass index (BMI) of 34.0 to 34.9 in adult, unspecified obesity type E66.811; Z68.34 Body mass index: BMI 34.0-34.9 Obesity classification: adult class 1 (BMI 30 - 34.9) Obesity type: unspecified obesity type Serious obesity comorbidity presence: with serious comorbidity Chronic idiopathic constipation K59.04 Overactive bladder N32.81 Anemia, unspecified type D64.9 Anemia type: unspecified type Tooth infection K04.7 Gastroesophageal reflux disease with esophagitis without hemorrhage K21.00 Esophagitis bleeding: without hemorrhage Esophagitis presence: with esophagitis Prediabetes R73.03 Depression, unspecified depression type F32.A Depression Type: unspecified Chronic pain of left knee M25.562; G89.29 Chronicity: chronic Elevated vitamin B12 level R79.89 Time Spent (min) 43 Assessment & Plan Assessment & Plan (1) Schizophrenia: Code(s): F20.9 - Schizophrenia, unspecified Category: Medical Qualifiers: Schizophrenia type: unspecified Qualified Code(s): F20.9 - Schizophrenia, unspecified Plan: Continue olanzapine 7.5 mg daily Follow up with Psychiatry as scheduled (2) Hypertension: Code(s): I10 - Essential (primary) hypertension Category: Medical Qualifiers: Hypertension type: unspecified Qualified Code(s): I10 - Essential (primary) hypertension Plan: Blood pressure within goal Reinforced low-salt diet Continue losartan 25 mg daily (3) HLD (hyperlipidemia): Code(s): E78.5 - Hyperlipidemia, unspecified Category: Medical Qualifiers: Hyperlipidemia type: mixed hyperlipidemia Qualified Code(s): E78.2 - Mixed hyperlipidemia Plan: Triglycerides 102, total cholesterol 157, LDL 89, HDL 48 Reinforced low-cholesterol diet and activity as tolerated We will repeat lipid panel in 3 months (4) Elevated TSH: Code(s): R79.89 - Other specified abnormal findings of blood chemistry Category: Medical Plan: TSH 5.14, free T4 0.92 Will repeat TFTs in 3 months (5) Obesity: Code(s): E66.9 - Obesity, unspecified Category: Medical Qualifiers: Body mass index: BMI 34.0-34.9 Obesity classification: adult class 1 (BMI 30 - 34.9) Obesity type: unspecified obesity type Serious obesity comorbidity presence: with serious comorbidity Qualified Code(s): E66.811 - Obesity, class 1; Z68.34 - Body mass index [BMI] 34.0-34.9, adult Plan: Discussed lifestyle modifications including dietary changes and physical activity (6) Chronic idiopathic constipation: Code(s): K59.04 - Chronic idiopathic constipation Category: Medical Plan: Increase fiber in diet (fruits/vegetables 4-5 servings daily) Increase fluid intake and decrease caffeine/energy drinks (may cause mild dehydration) Encouraged regular exercise (e.g., biking, walking, running) Patient denies constipation in office today. We will continue to monitor (7) Overactive bladder: Code(s): N32.81 - Overactive bladder Category: Medical Plan: The patient was on Gemtesa 75 mg daily. Apparently, this was discontinued because the patient reports that she is now longer taking it. Follow up with Urology as scheduled (8) Anemia: Code(s): D64.9 - Anemia, unspecified Category: Medical Qualifiers: Anemia type: unspecified type Qualified Code(s): D64.9 - Anemia, unspecified Plan: The patient hemoglobin decreased from 12.1-9.8 and hematocrit decreased from 38-31.8. The patient MVC also decreased from 83.2 to 73.4 and MCH from 26.5 to 22.6 in six-months. Patient reports that she is taking her iron supplement. She denies any blood in his stool or any other signs of bleeding. The patient is followed by Hematology and has an upcoming appointment. The patient reports that she has difficulty making her copays for the specialities. Explained to the patient that she needs to follow up with hematology at least because of the significant drop in her H&H. Ferrous sulfate was increased to BID. We will repeat CBC in 3 months (9) Tooth infection: Code(s): K04.7 - Periapical abscess without sinus Category: Medical Plan: Recurrent dental infection. The patient was instructed to follow up with her dentist on previous visit. This has not happened yet, per patient, she is having financial difficulty and that is the reason why she has not. Augmentin 875-125 mg b.i.d. x7 days ordered (10) GERD (gastroesophageal reflux disease): Code(s): K21.9 - Gastro-esophageal reflux disease without esophagitis Category: Medical Qualifiers: Esophagitis bleeding: without hemorrhage Esophagitis presence: with esophagitis Qualified Code(s): K21.00 - Gastro-esophageal reflux disease with esophagitis, without bleeding Plan: Do not eat meals or drink carbonated beverages within 3 hr of bedtime Decrease the amount of fried, fatty, and spicy foods to decrease gastric acid production Raise the head of the bed using 4 to 6-inch blocks, especially if nocturnal symptoms are present Lose weight if indicated; avoid tight-fitting clothing, especially around the waist Avoid foods that relax the Lower esophageal sphincter (chocolate, peppermint, high-fat foods etc.,) Continue omeprazole 40 mg daily (11) Prediabetes: Code(s): R73.03 - Prediabetes Category: Medical Plan: The patient fasting glucose is 142 and A1c 6.4% Reinforced low sugar/carbohydrate diet Explained to the patient that if her blood sugar continues to increase, she will need to be started on medication We will rechecked fasting glucose and A1c in 3 months (12) Depression: Code(s): F32.A - Depression, unspecified Category: Medical Qualifiers: Depression Type: unspecified Qualified Code(s): F32.A - Depression, unspecified Plan: Continue bupropion XL 300 mg daily, citalopram 20 mg daily Follow up with Psychiatry as scheduled (13) Left knee pain: Code(s): M25.562 - Pain in left knee Category: Medical Qualifiers: Chronicity: chronic Qualified Code(s): M25.562 - Pain in left knee; G89.29 - Other chronic pain Plan: Left knee giving out intermittently and causing recurrent pain Reports receiving getting cortisone injects in the past with positive effect She was referred to Orthopedics on previous visit, but does not look like she has been seen as yet. However, the patient has been having difficulty paying her copays (not sure if this is part of the reason why she has not been seen). The patient is accident for a scooter to assist her with long distance mobility. Reports that she would like to visit the mall again. (14) Elevated vitamin B12 level: Code(s): R79.89 - Other specified abnormal findings of blood chemistry Category: Medical Plan: Patient B12 level is elevated at 952. Patient reports that she is getting B12 to injection monthly and she is taking B12 p.o. daily. Instruct the patient to take the p.o. B12 every other day and continue her monthly injection. We will recheck her B12 levels in 3 months. Orders: Orders Complete Blood Count Auto Diff 3 Months D64.9 - Anemia, unspecified, E66.811 - Obesity, class 1, E78.2 - Mixed hyperlipidemia, F20.9 - Schizophrenia, unspecified, F32.A - Depression, unspecified, I10 - Essential (primary) hypertension, K21.00 - Gastro-esophageal reflux disease with esophagitis, without bleeding, R06.00 - Dyspnea, unspecified, R53.82 - Chronic fatigue, unspecified, R73.03 - Prediabetes, R79.89 - Other specified abnormal findings of blood chemistry, Z68.34 - Body mass index [BMI] 34.0-34.9, adult Lipid Panel 3 Months D64.9 - Anemia, unspecified, E66.811 - Obesity, class 1, E78.2 - Mixed hyperlipidemia, F20.9 - Schizophrenia, unspecified, F32.A - Depression, unspecified, I10 - Essential (primary) hypertension, K21.00 - Gastro-esophageal reflux disease with esophagitis, without bleeding, R06.00 - Dyspnea, unspecified, R53.82 - Chronic fatigue, unspecified, R73.03 - Prediabetes, R79.89 - Other specified abnormal findings of blood chemistry, Z68.34 - Body mass index [BMI] 34.0-34.9, adult UA CC w/rflx Micro + Cult 3 Months D64.9 - Anemia, unspecified, E66.811 - Obesity, class 1, E78.2 - Mixed hyperlipidemia, F20.9 - Schizophrenia, unspecified, F32.A - Depression, unspecified, I10 - Essential (primary) hypertension, K21.00 - Gastro-esophageal reflux disease with esophagitis, without bleeding, R06.00 - Dyspnea, unspecified, R53.82 - Chronic fatigue, unspecified, R73.03 - Prediabetes, R79.89 - Other specified abnormal findings of blood chemistry, Z68.34 - Body mass index [BMI] 34.0-34.9, adult TSH reflex Free T4 3 Months D64.9 - Anemia, unspecified, E66.811 - Obesity, class 1, E78.2 - Mixed hyperlipidemia, F20.9 - Schizophrenia, unspecified, F32.A - Depression, unspecified, I10 - Essential (primary) hypertension, K21.00 - Gastro-esophageal reflux disease with esophagitis, without bleeding, R06.00 - Dyspnea, unspecified, R53.82 - Chronic fatigue, unspecified, R73.03 - Prediabetes, R79.89 - Other specified abnormal findings of blood chemistry, Z68.34 - Body mass index [BMI] 34.0-34.9, adult Vitamin D 25-OH Total 3 Months D64.9 - Anemia, unspecified, E66.811 - Obesity, class 1, E78.2 - Mixed hyperlipidemia, F20.9 - Schizophrenia, unspecified, F32.A - Depression, unspecified, I10 - Essential (primary) hypertension, K21.00 - Gastro-esophageal reflux disease with esophagitis, without bleeding, R06.00 - Dyspnea, unspecified, R53.82 - Chronic fatigue, unspecified, R73.03 - Prediabetes, R79.89 - Other specified abnormal findings of blood chemistry, Z68.34 - Body mass index [BMI] 34.0-34.9, adult Comprehensive [place]. Panel Fast 3 Months D64.9 - Anemia, unspecified, E66.811 - Obesity, class 1, E78.2 - Mixed hyperlipidemia, F20.9 - Schizophrenia, unspecified, F32.A - Depression, unspecified, I10 - Essential (primary) hypertension, K21.00 - Gastro-esophageal reflux disease with esophagitis, without bleeding, R06.00 - Dyspnea, unspecified, R53.82 - Chronic fatigue, unspecified, R73.03 - Prediabetes, R79.89 - Other specified abnormal findings of blood chemistry, Z68.34 - Body mass index [BMI] 34.0-34.9, adult Vitamin B12 and Folate 3 Months D64.9 - Anemia, unspecified, E66.811 - Obesity, class 1, E78.2 - Mixed hyperlipidemia, F20.9 - Schizophrenia, unspecified, F32.A - Depression, unspecified, I10 - Essential (primary) hypertension, K21.00 - Gastro-esophageal reflux disease with esophagitis, without bleeding, R06.00 - Dyspnea, unspecified, R53.82 - Chronic fatigue, unspecified, R73.03 - Prediabetes, R79.89 - Other specified abnormal findings of blood chemistry, Z68.34 - Body mass index [BMI] 34.0-34.9, adult IRON PROFILE 3 Months D64.9 - Anemia, unspecified, E66.811 - Obesity, class 1, E78.2 - Mixed hyperlipidemia, F20.9 - Schizophrenia, unspecified, F32.A - Depression, unspecified, I10 - Essential (primary) hypertension, K21.00 - Gastro-esophageal reflux disease with esophagitis, without bleeding, R06.00 - Dyspnea, unspecified, R53.82 - Chronic fatigue, unspecified, R73.03 - Prediabetes, R79.89 - Other specified abnormal findings of blood chemistry, Z68.34 - Body mass index [BMI] 34.0-34.9, adult PT Evaluation and Treatment Today G89.29 - Other chronic pain, M25.562 - Pain in left knee, R06.00 - Dyspnea, unspecified Medications: New amoxicillin-pot clavulanate 875-125 mg 1 tab PO BID 14 tabs 0RF 7 days cholecalciferol (vitamin D3) 25 mcg PO DAILY 90 caps 3RF polyethylene glycol 3350 (Miralax) 17 grams PO DAILY 238 grams 3RF [motorized scooter] As directed 1 ea 0RF G89.29 - Other chronic pain, M25.562 - Pain in left knee, R06.00 - Dyspnea, unspecified Changed From ferrous sulfate 325 mg PO DAILY 60 tabs 5RF To ferrous sulfate 325 mg PO BID 180 tabs 3RF 90 days
--- OUTSIDE RECORDS SUMMARY | 2025-04-19 14:02 | XMS_ITS | Patient Health Record ---
Author Organization [facility] Address [address] [place] [address] Care Team Providers Care Reliability Specialist Name Role Phone Ishmael Zhou MD Primary Care Provider Unavaila Guillermo Feliz Jr Unavailable [phone] Reason For Referral No Information Medications Medication [...] Problem Status W/U Status Risk Notes Problem [id number] Colon cancer screening (Z12.11) Active confirmed Problem [id number] Gastroesophageal reflux disease with esophagitis (K21.0) Active confirmed Problem [id number] Iron deficiency anemia, unspecified iron deficiency anemia type (D50.9) Active confirmed Problem [id number] Hypertension, unspecified type (I10) Active confirmed Plan Of Treatment Future Test Test Name Order Date COLONOSCOPY 01/01/2019 Insurance Providers Payer Name Payer Address Payer Phone Subscriber Number Group Number Insured Name Patient Relationship to Insured Coverage Start Date Coverage End Date MEDICARE OF [place] [address] [place] [address] [id number] ABEL DUMONT Self - patient is the insured [id number] [address] [place] [address] [id number] ABEL DUMONT Self - patient is the insured Medical (General) History Medical History History ICD Code colonoscopy 11-17-2008 depression history of postprandial vomiting which w as associated with nausea Denies NV,DM,CVA,Lung disease,renal dise ase sciatica urinary incontinence Surgical History Surgery Date(Month/Year) cholecystectomy 11/24/2017 Bladder suspension
--- OUTSIDE RECORDS SUMMARY | 2025-04-19 14:02 | XMS_ITS | Patient Health Record ---
Author Organization [facility] Zuleika shereen Vega Address [address] [facility] [place] [address] Care Team Providers Care Hall Cleaner Name Role Phone Abelardo ROSALES, Ishmael Primary Care Provider Kelsey Floyd Unavailable [phone] Allergies No Known Allergies Reason For Referral [...] Problem Acquired hammer toe of left foot ([id number]) Other hammer toe(s) (acquired), left foot (M20.42) Active confirmed Problem Gouty arthritis of left foot (1388026354804615) Gouty arthritis of left foot (M10.9) Active confirmed Problem Localized, primary osteoarthritis of the ankle and/or foot (883764832) Arthritis of joint of lesser toe, left (M19.072) Active confirmed Vital Signs Height 5 ft 4 in in 04/22/2024 Weight 184 lbs 04/22/2024 BMI 31.58 kg/m2 04/22/2024 Encounters Encounter Location Date Provider Diagnosis [facility] [place] [address] [place] [address] 04/22/2024 Kelsey Hess Pain in left toe(s) [...] Date Coverage End Date Aetna [address] [place] [phone] [id number] Lindsay Mace Self - patient is the insured Medical (General) History Medical History History ICD Code Anemia Arthritis Knee Pain Cataracts Depression Headaches/Migraines High blood pressure Kidney disease Osteoporosis Psychiatric disorder Sciatica Mumps Chicken pox Surgical History Surgery Date(Month/Year) gall stones
== END 2025-04-19 14:02 | disposition home or self-care (01) ==
LOC: HO.HMCH 12:53
DX: F20.9 Schizophrenia, unspecified (principal); I10 Essential (primary) hypertension; E78.2 Mixed hyperlipidemia; R79.89 Other specified abnormal findings of blood chemistry; E66.811 Obesity, class 1; Z68.34 Body mass index [BMI] 34.0-34.9, adult; K59.04 Chronic idiopathic constipation; N32.81 Overactive bladder; D64.9 Anemia, unspecified; K04.7 Periapical abscess without sinus; K21.00 Gastro-esophageal reflux disease with esophagitis, without bleeding; R73.03 Prediabetes; F32.A Depression, unspecified; M25.562 Pain in left knee; G89.29 Other chronic pain

== ENCOUNTER → 2025-04-19 12:53 | Outpatient (BNVA) | payer MEDICARE, SELFPAY | DX: E78.2 Mixed hyperlipidemia (principal); R06.00 Dyspnea, unspecified; D64.9 Anemia, unspecified; F20.9 Schizophrenia, unspecified; I10 Essential (primary) hypertension; R79.89 Other specified abnormal findings of blood chemistry; E66.811 Obesity, class 1; K59.04 Chronic idiopathic constipation; N32.81 Overactive bladder; K04.7 Periapical abscess without sinus; K21.00 Gastro-esophageal reflux disease with esophagitis, without bleeding; R73.03 Prediabetes; F32.A Depression, unspecified; M25.562 Pain in left knee; G89.29 Other chronic pain; Z68.34 Body mass index [BMI] 34.0-34.9, adult | CPT/HCPCS: 99212 ==

== ENCOUNTER 2025-05-24 12:40 | Outpatient (AMB) | payer MEDICARE, SELFPAY ==
--- NOTE | 2025-05-24 12:46 | MHC.OFFVIS ---
Intake Visit Reasons: 6m/ PVR Intake Note: Patient is present for PVR Urology Med: Gemtesa Antibiotic Allergy:None Blood Thinner: None PVR: 0ml Bail Attacher Required: No Accompanied by: Self / Same As Patient Allergies No Known Allergies (No Known Allergies*) Allergy (Verified 05/24/25 13:13) Medication List - Last Reconciled 05/24/25 by ALE Miranda- amoxicillin-pot clavulanate 875-125 mg 1 tab PO BID 7 days bupropion HCl XL 300 mg PO DAILY carbamazepine 200 mg PO BID cholecalciferol (vitamin D3) 25 mcg PO DAILY citalopram 20 mg PO DAILY cyanocobalamin (vitamin B-12) 1,000 mcg sublingual DAILY cyanocobalamin (vitamin B-12) 1,000 mcg sublingual DAILY diaper,brief,adult,disposable ([place] Choice Comfort Protect Adult Diaper X-Large) As directed ferrous sulfate 325 mg PO BID 90 days fluticasone propionate 50 mcg/actuation 1 spray intranasal BID gabapentin 600 mg (2 x 300 mg) PO BID 90 days loratadine (Allergy Relief (loratadine)) 10 mg PO DAILY PRN losartan 25 mg PO DAILY mirtazapine 7.5 mg PO BEDTIME [motorized scooter As directed] olanzapine 7.5 mg PO DAILY omeprazole 40 mg PO DAILY polyethylene glycol 3350 (Miralax) 17 grams PO DAILY [pull ups twice per day as needed] vibegron (Gemtesa) 75 mg PO DAILY 90 days HPI Comments Details: Lindsay is a very pleasant 74-year-old female patient of Dr. Zhou. She has a past medical history of schizophrenia. She presents to the office today for follow-up of her mixed urinary incontinence. In discussion with the patient today she reports to be doing and feeling well. She reports feeling Gemtesa has been extremely helpful in episodes of urinary urgency, urinary frequency, and nocturia she had been experiencing. Patient previously trialed Myrbetriq with no improvement. Previous workup has included a retroperitoneal ultrasound 05/14 noting bilateral benign Bosniak class 1 peripelvic renal cysts left greater than right which require no additional follow-up imaging per radiology report. She does have a previous history of attending pelvic floor therapy with no improvement in her lower urinary tract symptoms. She also has a previous history of 1 vaginal of her daughter over 40 years ago. She reports labor was fast and her daughter was an average size babies. She denies hematuria, dysuria, foul smelling urine, changes to urinary stream, flank pain, fever, and or chills. Unable to obtain urine for urinalysis today as patient unable to void however PVR 0 mL. She does discuss having recently followed up with cardiology for ongoing issues of chest pain she has been experiencing in his due to undergo stress test later this week. We discussed possible near future in office cystoscopy and or urodynamics for further assessment evaluation if symptoms arise. She otherwise offers no other issues or concerns at this time. [facility] Medical History Herniation of left side of L4-L5 intervertebral disc Bilateral primary osteoarthritis of knee Encounter for initial annual wellness visit (AWV) in Medicare patient Schizophrenia Surgical History History of esophagogastroduodenoscopy (EGD) Hx of colonoscopy History of laparoscopic cholecystectomy History of cardiac catheterization History of cataract surgery History of throat surgery History of bladder surgery Family History Father Past heart attack Diabetes Mother Past heart attack Paternal Grandmother Stomach cancer Other Mental health disorder Social History Household Members: None Housing: Apartment Are you a primary customer care assistant to a significant other at home: No Do you presently have visiting nurse or other home services: No Alcohol intake: never Patient Tobacco Use Status: Never used Tobacco Tobacco use type: Cigarette e-Cigarette/Vaping Use: Never Used Second Hand Smoke Exposure: No service: No Current occupational status: disabled Cognitive needs: Yes (cane) Hearing needs: No Vision needs: No Review of Systems Const All systems reviewed & are unremarkable except as noted in HPI and below Physical Exam Const General: cooperative, healthy appearing, comfortable, no acute distress, well developed, alert and awake Nutritional Appearance: overweight Orientation/consciousness: patient oriented x3 Limitations: no limitations HEENT Head: Yes normal to inspection, Yes normocephalic and Yes atraumatic Ears: hearing grossly normal bilaterally Eyes General: appearance normal, both eyes and all related structures Neck Neck: Yes normal visual inspection and Yes trachea midline Chest Chest palpation & inspection: normal inspection of the chest Resp Effort & Inspection: normal respiratory effort and able to speak in complete sentences Cardio Rate: regular rate GI Inspection: Yes normal to inspection General: Yes no CVA tenderness Back/Spine/Pelvis Back: no CVA tenderness Skin General skin exam: no rashes or lesions noted Neuro General: patient oriented x3 Extrem General: Yes normal to inspection Psych Appearance: grossly normal and well kempt Mental Status: mental status grossly normal Speech and movement: Normal speech and movement present and Clear speech present Affect: normal affect Attitude: cooperative Thought process: Normal thought process present Thought content: Normal thought content present Insight: Fair insight present (Psych) Judgement: Fair judgement present (Psych) Office Procedures Post Void Residual Post Residual Void Post Void Residual (PVR): 0 [id number]-[id number] Void Residual by ultrasound Assessment & Plan Assessment & Plan (1) Overactive bladder: Code(s): N32.81 - Overactive bladder Category: Medical (2) Incontinence: Code(s): R32 - Unspecified urinary incontinence Category: Medical Plan Unable to obtain urine for urinalysis as patient unable to void however PVR 0 mL. She currently denies any bothersome urinary issues. Continue Gemtesa as discussed and prescribed. We discussed the importance of following up with cardiology as planned. She denies any UTI like symptoms. Will continue with surveillance monitoring. Will provide prescription for 2 adult diapers per day to Jaswinder. Follow-up in 6 months with PVR; or sooner with any issues, concerns, and or questions. Orders: Orders AMB Post Void Residual by ultrasound Today N32.81 - Overactive bladder Medications: New vibegron (Gemtesa) 75 mg PO DAILY 90 tabs 3RF 90 days Patient Instructions: The patient had an opportunity to ask questions regarding the treatment plan. All questions were answered. Physical exam, labs, and imaging were discussed and reviewed in detail. As well as risks, benefits, and discussion of treatment choices. No major barriers to understanding were identified. The patient expressed understanding and agreement with the above treatment plan. The patient was made aware they should contact our office by phone for worsening of their current condition, the appearance of new symptoms, or with any questions or concerns. Compliance is encouraged with any medications and follow up testing that is ordered. It is a privilege to be allowed the opportunity to participate in? your urological care.? Again, if you have any questions or concerns If you have any questions or concerns please do not hesitate to contact me. The office is [phone]. This note is constructed using voice recognition software. While every effort has been made to ensure accuracy healthcare economics manager errors may have been included. Yours sincerely, JEAN Miranda Coding Level of Care Code Est Pt Level 3 (59792) Complex EM visit Add On G2211 Diagnoses Overactive bladder N32.81 Incontinence R32 CPT Codes Post Residual Void - PVR CPT Code: 30546-Tyra Void Residual by ultrasound ([id number])
--- OUTSIDE RECORDS SUMMARY | 2025-05-24 16:02 | XMS_ITS | Patient Health Record ---
Author Organization [facility] Zuleika shereen Vega Address [address] [facility] [place] [address] Care Team Providers Care Stain Applicator Name Role Phone Abelardo ROSALES, Ishmael Primary Care Provider Kelsey Floyd Unavailable [phone] Allergies No Known Allergies Reason For Referral [...] Problem Acquired hammer toe of left foot (7831002782741024) Other hammer toe(s) (acquired), left foot (M20.42) Active confirmed Problem Gouty arthritis of left foot (4098321851705241) Gouty arthritis of left foot (M10.9) Active confirmed Problem Localized, primary osteoarthritis of the ankle and/or foot (625941965) Arthritis of joint of lesser toe, left (M19.072) Active confirmed Plan Of Treatment Pending Test Test Name Order Date *Uric Acid, Serum 04/22/2024 *CBC With Differential/Platelet 04/22/20 ESR 04/22/2024 X ray : Foot, left 3V 04/22/2024 Insurance Providers Payer Name Payer Address Payer Phone Subscriber Number Group Number Insured Name Patient Relationship to Insured Coverage Start Date Coverage End Date Aetna [address] [place] [phone] [id number] Lindsay Mace Self - patient is the insured Medical (General) History Medical History History ICD Code Anemia Arthritis Knee Pain Cataracts Depression Headaches/Migraines High blood pressure Kidney disease Osteoporosis Psychiatric disorder Sciatica Mumps Chicken pox Surgical History Surgery Date(Month/Year) gall stones
--- OUTSIDE RECORDS SUMMARY | 2025-05-24 16:02 | XMS_ITS | Patient Health Record ---
Author Organization [facility] Address [address] [place] [address] Care Team Providers Care Maintenance Assistant Name Role Phone Ishmael Zhou MD Primary Care Provider Unavaila Guillermo Feliz Jr Unavailable Reason For Referral No Information Medications Medication SIG (Take, Route, Frequency, Duration) Notes Start Date End Date Status Wellbutrin XL 300 MG 1 tablet in the mor mehnaz Orally Once a day Active Colyte with Flavor Packs 240 GM As directed Orally Over the specified time.; Duration: 1 day(s) 03/18/2019 Active buPROPion HCl ER (XL) 300 MG TK 1 T PO Q AM Oral Once a day Active OLANZapine 7.5 MG TK 1 T PO HS Oral; Duration: 30 Active Colyte with Flavor Packs 240 GM As directed Orally Over the specified time.; Duration: 1 day(s) 03/18/2019 Active Colyte with Flavor Packs 240 GM As directed Orally Over the specified time.; Duration: 1 day(s) 01/01/2019 Active FeroSul 325 (65 [...] Problem Status W/U Status Risk Notes Problem Colon cancer screening (719474786) Colon cancer screening (Z12.11) Active confirmed Problem Gastroesophageal reflux disease with esophagitis (713826201) Gastroesophageal reflux disease with esophagitis (K21.0) Active confirmed Problem Iron deficiency anemia (10923781) Iron deficiency anemia, unspecified iron deficiency anemia type (D50.9) Active confirmed Problem Essential hypertension (83787738) Hypertension, unspecified type (I10) Active confirmed Plan Of Treatment Future Test Test Name Order Date COLONOSCOPY 01/01/2019 Insurance Providers Payer Name Payer Address Payer Phone Subscriber Number Group Number Insured Name Patient Relationship to Insured Coverage Start Date Coverage End Date MEDICARE OF [place] [address] [place] [id number] ABEL DUMONT Self - patient is the insured [facility]ICAID [facility] [address] [place] [address] [id number] ABEL DUMONT Self - patient is the insured Medical (General) History Medical History History ICD Code colonoscopy 11-17-2008 depression history of postprandial vomiting which w as associated with nausea Denies HI,DM,CVA,Lung disease,renal dise ase sciatica urinary incontinence Surgical History Surgery Date(Month/Year) cholecystectomy 11/24/2017 Bladder suspension
--- OUTSIDE RECORDS SUMMARY | 2025-05-24 16:02 | XMS_ITS | Clinical Summary ---
Author Organization [facility] Address [address] [place] [address] Phone Care Team Providers Care Gang Pusher Name Role Phone Uzair Bearden NP Primary Care Provider Encounters Date Type Department Care Team Description 05/05/2025 Transcribe Orders [facility] [address] [place] [address] [place], [place] [id number] Uzair Bearden NP Encounter for rehabilitation (Primary Dx) from Last 3 Months Social History Tobacco Use Types Packs/Day Years Used Date Smoking Tobacco: Never Assessed Education Answer Date Recorded Are you interested in more education? Not on urmila e 05/05/2025 Are you concerned about learning? Not on file 05/05/2025 No 05/05/2025 No 05/05/2025 Digital Access Answer Date Recorded No 05/05/2025 No 05/05/2025 Reliable internet access at home? Not on file 05/05/2025 Device with a working camera? Not on file Comments Unknown Sex and Gender Information Value Date Recorded Sex Assigned at Not on file Legal Sex Female 1:06 PM EDT Gender Identity Not on file Sexual Orientation Not on file Plan of Treatment Upcoming Encounters Date Type Department Care Team (Late st Contact Info) Description 06/01/2025 10:00 AM EST Office Visit [facility] [address] [place] [id number] Uzair Bearden NP [address] [place] [address] Marcy Chavez OT [address] [place] [address] [email or web address] Health Maintenance Due Date Last Done Comments Adult Td,Tdap Booster 1952 LIPID PANEL 1952 DEPRESSION SCREENING 1964 SMOKING Hx and SMOKELESS TOB ACCO SCREENING 1965 HEPATITIS C SCREENING 1970 MAMMOGRAM 1992 COLOGUARD 1997 COLONOSCOPY 1997 COLORECTAL CANCER SCREENING 1997 FIT TEST 1997 FOBT 1997 SIGMOIDOSCOPY 1997 VIRTUAL COLONOSCOPY 1997 PNEUMOCOCCAL VACCINES (50+ y ears) (1 of 1 - PCV) 2002 ZOSTER VACCINES (1 of 2) 2002 OSTEOPOROSIS SCREENING INITI AL (ONE-TIME) 2017 INFLUENZA VACCINE (#1) 2025 COVID-19 VACCINE (1 - 2024-2 6 season) 2025 RSV VACCINE (1 - 1-dose 75+ series) 2027 HEPATITIS A VACCINES Aged Out No long er eligible based on patient's age to complete this topic HIB VACCINES Aged Out No longer eligi ble based on patient's age to complete this topic MENINGOCOCCAL VACCINES (ACWY) Aged Out No longer eligible based on patient's age to complete this topic MENINGOCOCCAL VACCINES (B) Aged Out N o longer eligible based on patient's age to complete this topic Medical Devices Not on file Insurance AETNA PPO MEDICARE REPLACEMENT AETNA PPO MEDICARE REPLACEMENT AETNA PPO MEDICARE REPLACEMENT AETNA PPO MEDICARE REPLACEMENT AETNA PPO MEDICARE REPLACEMENT AETNA PPO MEDICARE REPLACEMENT Care Teams Gang Pusher Relationship Specialty Start Date End Date Uzair Bearden NP [address] [place] [address] [address] [place] [address] PCP - General Nurse Practitioner 04/30/25 Additional Source Comments The information contained in this document represents components of the legal health record. It is not the complete legal health record.[facility]
== END 2025-05-24 13:12 | disposition home or self-care (01) ==
LOC: HO.HUSH 12:40
PROVIDERS: PCP Internal Medicine; Visit Provider Nurse Practitioner Family
DX: N32.81 Overactive bladder (principal); R32 Unspecified urinary incontinence
CPT/HCPCS: 99213; G2211

== ENCOUNTER → 2025-05-24 12:40 | Outpatient (BNVA) | payer MEDICARE, SELFPAY | PROVIDERS: PCP Internal Medicine; Visit Provider Nurse Practitioner Family | DX: N32.81 Overactive bladder (principal); R32 Unspecified urinary incontinence | CPT/HCPCS: 51798; 99212 ==

== ENCOUNTER → 2025-05-27 07:42 | Outpatient (REF) | payer MEDICARE, SELFPAY ==
--- OUTSIDE RECORDS SUMMARY | 2025-05-27 07:45 | XMS_ITS | Patient Health Record ---
Author Organization [facility] Zuleika shereen Vega Address [address] [facility] [place] [address] Care Team Providers Care Floor Layer Name Role Phone Abelardo ROSALES, Ishmael Primary Care Provider Kelsey Floyd Unavailable [phone] Allergies No Known Allergies Reason For Referral [...] Problem Acquired hammer toe of left foot (7417652334133669) Other hammer toe(s) (acquired), left foot (M20.42) Active confirmed Problem Gouty arthritis of left foot (9937607056710684) Gouty arthritis of left foot (M10.9) Active confirmed Problem Localized, primary osteoarthritis of the ankle and/or foot (800160083) Arthritis of joint of lesser toe, left (M19.072) Active confirmed Plan Of Treatment Pending Test Test Name Order Date *Uric Acid, Serum 04/22/2024 *CBC With Differential/Platelet 04/22/20 24 ESR 04/22/2024 X ray : Foot, left 3V 04/22/2024 Next Appt Details Provider Name:Joslyn garcia, 05/31/2025 01:30:00 PM, [address] [place], [address], Insurance Providers Payer Name Payer Address Payer Phone Subscriber Number Group Number Insured Name Patient Relationship to Insured Coverage Start Date Coverage End Date Aetna [address] [place] [phone] [id number] Lindsay Mace Self - patient is the insured Medical (General) History Medical History History ICD Code Anemia Arthritis Knee Pain Cataracts Depression Headaches/Migraines High blood pressure Kidney disease Osteoporosis Psychiatric disorder Sciatica Mumps Chicken pox Surgical History Surgery Date(Month/Year) gall stones
--- OUTSIDE RECORDS SUMMARY | 2025-05-27 07:45 | XMS_ITS | Patient Health Record ---
Author Organization [facility] Address [address] [place] [address] Care Team Providers Care Rn Quality Name Role Phone Ishmael Zhou MD Primary [...] Status Risk Notes Problem Colon cancer screening (510233828) Colon cancer screening (Z12.11) Active confirmed Problem Gastroesophageal reflux disease with esophagitis (197913106) Gastroesophageal reflux disease with esophagitis (K21.0) Active confirmed Problem Iron deficiency anemia (39537321) Iron deficiency anemia, unspecified iron deficiency anemia type (D50.9) Active confirmed Problem Essential hypertension (73963964) Hypertension, unspecified type (I10) Active confirmed Plan Of Treatment Future Test Test Name Order Date COLONOSCOPY 01/01/2019 Insurance Providers Payer Name Payer Address Payer Phone Subscriber Number Group Number Insured Name Patient Relationship to Insured Coverage Start Date Coverage End Date MEDICARE OF [place] [address] [place] [address] [id number] ABEL DUMONT Self - patient is the insured [facility]ICAID [facility] [address] [place] [address] [id number] ABEL DUMONT Self - patient is the insured Medical (General) History Medical History History ICD Code colonoscopy 11-17-2008 depression history of postprandial vomiting which w as associated with nausea Denies DE,DM,CVA,Lung disease,renal dise ase sciatica urinary incontinence Surgical History Surgery Date(Month/Year) cholecystectomy 11/24/2017 Bladder suspension
--- OUTSIDE RECORDS SUMMARY | 2025-05-27 07:45 | XMS_ITS | Clinical Summary ---
Author Organization [facility] Address [address] [place] [address] Phone Care Team Providers Care Hearing Aid Assembly Supervisor Name Role Phone Uzair Bearden NP Primary Care Provider Encounters Date Type Department Care Team Description 05/05/2025 Transcribe Orders [facility] [address] [place] [address] [place], [place] [phone] Uzair Bearden NP Encounter for rehabilitation (Primary [...] Description 06/01/2025 10:00 AM EST Office Visit [facility] [address] [place] [id number] Uzair Bearden NP [address] [place] [address] Marcy Chavez OT [address] [place] [address] [email or web address] Health Maintenance Due Date Last Done Comments [...] REPLACEMENT AETNA PPO MEDICARE REPLACEMENT Care Teams Hearing Aid Assembly Supervisor Relationship Specialty Start Date End Date Uzair Bearden NP [address] [place] [address] [address] [place] [address] PCP - General Nurse Practitioner 04/30/25 Additional Source Comments The information contained in this document represents components of the legal health record. It is not the complete legal health record.[facility]
== END ==
LOC: HO.CARD 07:42
PROVIDERS: Visit Provider Nurse Practitioner Family
DX: Z13.89 Encounter for screening for other disorder (principal)

== ENCOUNTER 2025-05-29 16:56 | Emergency (ER) | payer MEDICARE, SELFPAY ==
--- NOTE | ~2025-05-29 | XR_ITS ---
CLINICAL HISTORY: chest pain 2 view chest x-ray. Comparison: 06/04/2022 Findings: No consolidation or effusion. Cardiac and mediastinal contours are stable. Similar fairly large hiatal hernia. Bones unremarkable. Impression: 1. No acute pulmonary disease. This document has been electronically signed by: Jose Mabry MD on 05/29/2025 18:53:23
--- NOTE | ~2025-05-29 | CT_ITS ---
CLINICAL HISTORY: R sided Abd Tenderness; N V D CT abdomen and pelvis with contrast Comparison: None provided Findings: Large paraesophageal hernia in the retrocardiac position. Prior cholecystectomy. The solid organs are within normal limits. No renal stones. The adrenals are within normal limits. No bowel obstruction, pneumoperitoneum, or pneumatosis. Bilateral extrarenal pelvis. There is diffuse fecal material seen throughout the colon. Diverticulosis. Pelvic contents unremarkable. Normal appendix. The bones are intact. The uterus is mildly atrophic. Endometrial thickness of 0.6 cm. Mild osteopenia. IMPRESSION: 1. Large paraesophageal hernia in the retrocardiac position. 2. Endometrial hyperplasia. Clinical correlation suggested. 3. Diverticulosis. 4. Constipation. This document has been electronically signed by: Raza Saunders MD on 05/29/2025 23:31:06
--- NOTE | 2025-05-29 16:59 | ECG_ITS ---
Test Reason : COUGH Blood Pressure : */* mmHG Vent. Rate : 84 BPM Atrial Rate : 84 BPM P-R Int : 156 ms QRS Dur : 86 ms QT Int : 376 ms P-R-T Axes : 60 -36 59 degrees QTcB Int : 444 ms Normal sinus rhythm Left axis deviation Minimal voltage criteria for LVH, may be normal variant ( Ty product ) Abnormal ECG When compared with ECG of 03-Jun-2022 23:54, QRS axis Shifted left Referred By: Generic ED Physician Electronically Signed By: Trell Key
[2025-05-29 17:24] VITALS: BP 152/69; PULSE 87; RESP 18; TEMP 36.9; O2SAT 98; BMI 30.8
--- NOTE | 2025-05-29 17:28 | ED_ITS ---
HPI - Chest Pain General Chief Complaint: Chest Pain Stated Complaint: chest pain for about a month Time Seen by Provider: 05/29/25 20:03 Source: patient Mode of arrival: ambulatory Limitations: no limitations History of Present Illness ED Provider: Pradeep PATEL HPI narrative: The patient is a 74-year-old female with a history of depression, hyperlipidemia, schizophrenia, obesity, anemia, hypertension, and GERD presenting to the ED for evaluation of left parasternal chest pain. Patient initially reported during triage that the pain has been going on intermittently for the past month, worse in the morning, without reproducibility, and without cough. During this provider's exam the patient reports the chest pain has been going on only for the past 4 days and is worse with palpation, movement, deep respiration, and cough. Patient reports she has been experiencing 4 days of cough productive of white sputum and also reports 4 days ago she experienced multiple episodes of nonbloody, bilious vomiting, with the associated diarrhea. The patient denies associated hematochezia or melena. The patient denies associated objective fever/chills, hemoptysis, sinus congestion, dysuria, or hematuria, patient does report however she has been urinating very small amounts, with a sensation of incomplete voiding. Related Data Home Medications ?Medication ?Instructions ?Recorded ?Confirmed omeprazole 40 mg capsule,delayed 40 mg PO DAILY 05/24/25 release mirtazapine 7.5 mg tablet 7.5 mg PO BEDTIME 04/14/24 1 07/24/24 carbamazepine 200 mg tablet 200 mg PO BID 05/27/2410/13 Previous Rx's ?Medication ?Instructions ?Recorded diaper,brief,adult,disposable #10 ea 08/30/22 ([place] Choice Comfort Protect Adult Diaper X-Large) bupropion HCl 300 mg 24 hr tablet, 300 mg PO DAILY #60 tabs 02/21/24 extended release citalopram 20 mg tablet 20 mg PO DAILY #60 tabs 01/13 fluticasone propionate 50 1 spray intranasal BID #16 g jessy 10/12/24 mcg/actuation nasal spray,suspension olanzapine 7.5 mg tablet 7.5 mg PO DAILY #60 tabs 06/15 loratadine 10 mg tablet (Allergy 10 mg PO DAILY PRN al lergy 01/11/25 Relief (loratadine)) symptoms #30 tabs losartan 25 mg tablet 25 mg PO DAILY #60 tabs 12/21 12/13 cyanocobalamin (vitamin B-12) 1,000 mcg sublingual ZE LY #90 ea 03/19/25 1,000 mcg sublingual lozenge cholecalciferol (vitamin D3) 25 25 mcg PO DAILY #90 ca ps 04/19/25 mcg (1,000 unit) capsule ferrous sulfate 325 mg (65 mg 325 mg PO BID 90 days #1 80 tabs 04/19/25 iron) tablet polyethylene glycol 3350 17 17 g PO DAILY #238 grams 0 04/19/25 gram/dose oral powder (Miralax) motorized scooter #1 ea 04/20/25 cyanocobalamin (vitamin B-12) 1,000 mcg sublingual ZE LY 04/30/25 1,000 mcg sublingual tablet gabapentin 300 mg capsule 600 mg (2 x 300 mg) PO BID 9 0 days 05/18/25 #360 caps pull ups #70 ea 05/24/25 vibegron 75 mg tablet (Gemtesa) 75 mg PO DAILY 90 days #90 tabs 05/24/25 Allergies Allergy/AdvReac Type Severity Reaction Status Date / Time cat dander (cats) Allergy Itching Verified 05/29/25 17:27 Review of Systems 2 Review of Systems: Yes all other systems are reviewed and are negative [facility] Past Medical History Medical History Herniation of left side of L4-L5 intervertebral disc Bilateral primary osteoarthritis of knee Encounter for initial annual wellness visit (AWV) in Medicare patient Schizophrenia Surgical History History of esophagogastroduodenoscopy (EGD) Hx of colonoscopy History of laparoscopic cholecystectomy History of cardiac catheterization History of cataract surgery History of throat surgery History of bladder surgery Family History Family History Father Past heart attack Diabetes Mother Past heart attack Paternal Grandmother Stomach cancer Other Mental health disorder Social History Social History Household Members: None Housing: Apartment Are you a primary reproductive healthcare assistant to a significant other at home: No Do you presently have visiting nurse or other home services: No Alcohol intake: never Patient Tobacco Use Status: Never used Tobacco Tobacco use type: Cigarette e-Cigarette/Vaping Use: Never Used Second Hand Smoke Exposure: No Advance Directives: No Advance Directives Information Provided: No service: No Current occupational status: disabled Cognitive needs: Yes (cane) Hearing needs: No Vision needs: No Physical Exam 2 Vital Signs: Vital Signs: Last Vital Signs Temp 97.6 F 05/30/25 01:00 Pulse 76 05/30/25 01:00 Resp 18 05/30/25 01:00 BP 146/63 H 05/30/25 01:00 Pulse Ox 97 05/30/25 01:00 O2 Del Method Room Air 05/30/25 01:00 BMI result Body Mass Index 30.8 CONSTITUTIONAL: The patient appears non-toxic, well nourished and in no acute distress. Vital signs as documented. HEAD: Atraumatic, normocephalic. EYES: EOMs grossly intact, pupils equal, conjunctiva clear, no exudate. ENT: Nares patent, no discharge. Airway patent, no audible stridor, visible mucosa is pink and moist without noted lesions. NECK: Trachea is midline, no obvious masses or gross abnormalities. CHEST: Symmetric movement, normal appearance. There is tenderness to palpation of the left sternal border which fully reproduces the patient's pain. LUNGS: LS present and CTAB, no w/r/r. Non-labored work of breathing. CARDIAC: Regular Rhythm, S1/S2 appreciated, no murmurs, rubs or gallops. ABDOMEN: Abdomen soft x4 quadrants, positive tenderness to palpation of the right upper and lower quadrants, negative Rovsing, negative Jackson's, negative rebound, no palpable masses or organomegaly. : Deferred. EXTREMITIES: Normal tone, moves all extremities spontaneously without reported pain. No obvious acute injury or deformity noted. NEURO: Alert and oriented x3, CN II-XII appear grossly intact. Cerebellar Functioning grossly intact. No obvious sensory or motor deficits. Speech clear and appropriate. PSYCH: normal affect, appropriate eye contact, fluid speech, with appropriate response to questioning. No reported suicidality or homicidality. SKIN: Warm, dry, color appropriate, normal turgor. No rashes noted. Medications Administered Discontinued Medications Generic Name Dose Route Start Last Admin Trade Name Yanni PRN Reason Stop Dose Admin Acetaminophen 975 mg 05/29/25 23:51 05/29/25 23:58 Acetaminophen 325 Mg Tablet PO 05/29/25 23:52 975 mg ONCE ONE Administration Sodium Chloride 1,000 mls @ 999 mls/hr 05/29/25 21:15 05/30/25 01:00 Ns IV 05/29/25 22:15 Infused .Q1H1M ALISSA Infusion Iohexol 100 ml 05/29/25 22:16 05/29/25 22:16 Iohexol 350 Mg/Ml 100 Ml Infus..Btl IV 05/29/25 22:17 85 ml ONCE ONE Administration Ketorolac Tromethamine 15 mg 05/29/25 23:51 05/29/25 23:59 Ketorolac Tromethamine 15 Mg/Ml Vial IVPUSH 05/29/25 23:52 15 mg ONCE ONE Administration Medical Decision Making Medical Decision Making MDM Narrative: 9:14 PM 05/29/2025 (Kate APTEL): The patient is a 74-year-old female with a history of depression, hyperlipidemia, schizophrenia, obesity, anemia, hypertension, and GERD presenting to the ED for evaluation of left parasternal chest pain. Patient initially reported during triage that the pain has been going on intermittently for the past month, worse in the morning, without reproducibility, and without cough. During this provider's exam the patient reports the chest pain has been going on only for the past 4 days and is worse with palpation, movement, deep respiration, and cough. Patient reports she has been experiencing 4 days of cough productive of white sputum and also reports 4 days ago she experienced multiple episodes of nonbloody, bilious vomiting, with the associated diarrhea. The patient denies associated hematochezia or melena. The patient denies associated objective fever/chills, hemoptysis, sinus congestion, dysuria, or hematuria, patient does report however she has been urinating very small amounts, with a sensation of incomplete voiding. On exam the patient has no adventitious lung sounds, however does have reproducible left sternal chest pain with palpation, additionally patient reports right-sided upper and lower abdominal tenderness, negative Jackson's, negative Rovsing's, negative rebound. The patient's laboratory evaluation demonstrates no leukocytosis, significant anemia, electrolyte abnormality, or MAYE. The patient's troponin is negative, EKG is nonischemic, chest x-ray shows no focal consolidation. We will add on LFTs, lipase, urinalysis, and viral swabs. Additionally we will obtain CT abdomen and pelvis to rule out intra-abdominal pathology in the setting of right-sided tenderness with nausea, bilious vomiting, and diarrhea. 11:49 PM 05/29/2025 (Kate PATEL): The patient's CT abdomen and pelvis shows no acute intra-abdominal pathology, there is diverticulosis without diverticulitis, constipation, endometrial hyperplasia, and an unchanged hiatal hernia. LFTs, lipase, and viral swabs are unremarkable. The patient's vital signs remained stable and patient appears in no acute distress. The patient has a history of incontinence, patient will undergo straight catheterization for urinalysis. Patient is also requesting pain management for her reproducible chest pain, we will treat with Tylenol, Toradol, and reassess following urinalysis results. 12:39 AM 05/30/2025 (Kate PATEL): Patient's urinalysis is unremarkable. There was no evidence of acute emergent process. The patient will be discharged with supportive care and outpatient follow up. Admission/Observation Consideration of admission/observation: Escalation of care including admission/observation considered Lab Data MDM Lab Attestation statement: I reviewed the patient's lab results. 05/29/25 18:37 05/29/25 18:37 Labs: Lab Results 05/29/25 05/29/25 05/30/25 Range/Units 18:37 21:27 00:07 WBC 9.3 (4.8-10.8) X10*3/uL RBC 4.21 (4.20-5.50) X10*6/uL Hgb 9.4 L (12.0-16.0) g/dl Hct 32.1 L (37.0-47.0) % MCV 76.2 L (80.0-98.0) fL MCH 22.3 L (27.0-33.0) pg MCHC 29.3 L (31.0-35.0) g/dl RDW 17.7 H (11.0-16.0) % Plt Count 393 (160-400) X10*3/uL MPV 8.9 L (9.4-12.3) fL Immature Gran % (Auto) 0.5 H (0.0-0.4) % Neut % (Auto) 72.4 (45-73) % Lymph % (Auto) 16.0 L (20-40) % Billings % (Auto) 7.8 (2-11) % Eos % (Auto) 2.5 (0-4) % Baso % (Auto) 0.8 (0-2) % Lymph # (Auto) 1.5 (1.2-4.9) X10*3/uL Billings # (Auto) 0.7 (0.1-1.2) X10*3/uL Eos # (Auto) 0.2 (0.0-0.4) X10*3/uL Baso # (Auto) 0.1 (0.0-0.2) X10*3/uL Abs Immat Gran (auto) 0.05 H (0.00-0.03) X10*3/uL Absolute Neuts (auto) 6.7 (2.0-8.3) x10*3/uL Absolute Nucleated RBC 0.000 (0.0-0.012) X10*3/uL Nucleated RBC % (auto) 0.0 (0.0-0.2) /100WBC Sodium 139 (135-145) mmol/L Potassium 4.4 (3.3-5.1) mmol/L Chloride 108 (96-108) mmol/L Carbon Dioxide 22 (22-29) mmol/L Anion Gap 13 (12-20) BUN 15 (9-16) mg/dL Creatinine 0.85 (0.5-1.4) mg/dL Estim Creat Clear Calc 66.3 Estimated GFR > 60 Random Glucose 138 H (60-115) mg/dL Calcium 9.1 (8.4-10.2) mg/dL Total Bilirubin 0.2 (0.0-1.0) mg/dL Direct Bilirubin < 0.2 (0.0-0.5) mg/dL AST 20 (5-31) U/L ALT 17 (0-31) U/L Alkaline Phosphatase 64 (39-117) U/L Troponin I High Sens < 2.7 (<3.5-17.0) ng/L Total Protein 7.3 (6.5-8.0) g/dL Albumin 4.3 (3.5-5.0) g/dL Lipase 30 (8-78) U/L Urine Color Yellow Urine Appearance Clear Urine pH 5.5 (5.0-9.0) Ur Specific Ellerbe >= 1.030 H (1.005-1.025) Urine Protein Negative (Neg-Trace) mg/dL Urine Glucose (UA) 100 H (Negative) mg/dL Urine Ketones Negative (Negative) mg/dL Urine Blood Negative (Negative) Urine Nitrite Negative (Negative) Ur Leukocyte Esterase Negative (Negative) Influenza Type A (PCR) NEGATIVE (Negative) Influenza Type B (PCR) NEGATIVE (Negative) RSV RNA Qual (PCR) NEGATIVE (Negative) SARS-CoV-2 RNA (RT-PCR) NEGATIVE (Negative) Independent Interpretation I performed an independent interpretation of an: EKG (EKG shows sinus rhythm with a rate of 84, with left axis deviation, no evidence of acute ischemia, no ST elevation, no ectopy. QTC 444. Compared to previous on 06/03/2022 left axis deviation is new. ) Radiology Impression Discussion of test interpretation with radiology: I have reviewed the radiologist's reading. Radiologist Impression: CLINICAL HISTORY: chest pain 2 view chest x-ray. Comparison: 06/04/2022 Findings: No consolidation or effusion. Cardiac and mediastinal contours are stable. Similar fairly large hiatal hernia. Bones unremarkable. Impression: 1. No acute pulmonary disease. This document has been electronically signed by: Jose Mabry MD on 05/29/2025 18:53:23 CT abdomen and pelvis with contrast Comparison: None provided Findings: Large paraesophageal hernia in the retrocardiac position. Prior cholecystectomy. The solid organs are within normal limits. No renal stones. The adrenals are within normal limits. No bowel obstruction, pneumoperitoneum, or pneumatosis. Bilateral extrarenal pelvis. There is diffuse fecal material seen throughout the colon. Diverticulosis. Pelvic contents unremarkable. Normal appendix. The bones are intact. The uterus is mildly atrophic. Endometrial thickness of 0.6 cm. Mild osteopenia. IMPRESSION: 1. Large paraesophageal hernia in the retrocardiac position. 2. Endometrial hyperplasia. Clinical correlation suggested. 3. Diverticulosis. 4. Constipation. This document has been electronically signed by: Raza Saunders MD on 05/29/2025 23:31:06 External Record Review External record reviewed: Outpatient record and Prior outpatient labs Discharge Plan Discharge Clinical Impression: Acute viral syndrome Patient Disposition: Home, Self-Care Instructions: Viral Syndrome (ED) Additional Instructions: Thank you for choosing [facility]'s Emergency Department for your care today. Thankfully your laboratory evaluation, abdominal CT, chest x-ray, EKG, urinalysis, viral swabs, vital signs, and exam today show no evidence of an acute emergent process responsible for your symptoms. At this time there is no indication for admission to the hospital or continued ED observation, and it is safe to discharge you home. Your workup showed no evidence of pneumonia, systemic infection, anemia, kidney dysfunction, electrolyte abnormality, liver abnormality, pancreatic inflammation, heart attack, urinary tract infection, COVID, flu, RSV, or other dangerous cause for your symptoms. Your symptoms are most likely due to a viral illness causing your cough, nausea, vomiting, and diarrhea. You should take alternating (staggered) doses of ibuprofen 600mg and Tylenol 1000mg every 4 hours as needed for any additional pain. Please stay well hydrated and get plenty of rest. Please follow up with your primary care physician for re-evaluation, additional management of your symptoms, and continued preventative care. If you do not have a primary care physician, please call the [facility] at [phone] to establish a new primary care physician. While waiting to establish your new primary care physician, you can call our Walk[facility]in [facility] at [phone] for non-emergency needs. Please return to the emergency department if you develop a severe or sudden change in your symptoms, a fever over 100.4 that does not improve with Tylenol or Ibuprofen, recurrent vomiting, or any other new or worsening symptoms or concerns. Prescriptions: No Action (DME) [place] Choice Comf Protect XL Misc See Rx Instructions .ROUTE .MEDSUPPLY Qty: 10 8RF Rx Instructions: As directed bupropion HCl 300 mg tablet extended release 24 hr 300 mg PO DAILY Qty: 60 6RF citalopram 20 mg tablet 20 mg PO DAILY Qty: 60 0RF olanzapine 7.5 mg tablet 7.5 mg PO DAILY Qty: 60 11RF losartan 25 mg tablet 25 mg PO DAILY Qty: 60 3RF cyanocobalamin (vitamin B-12) 1,000 mcg tablet, sublingual 1,000 mcg sublingual DAILY 4RF gabapentin 300 mg capsule 600 mg PO BID 90 Days Qty: 360 0RF Rx Instructions: take two capsules by mouth twice daily at 9am and 5pm (DME) pull ups large See Rx Instructions .Route .MEDSUPPLY Qty: 70 0RF Rx Instructions: twice per day as needed carbamazepine 200 mg tablet 200 mg PO BID cyanocobalamin (vitamin B-12) 1,000 mcg Lozenge 1,000 mcg SUBLINGUAL DAILY Qty: 90 4RF omeprazole 40 mg capsule,delayed release(DR/EC) 40 mg PO DAILY fluticasone propionate 50 mcg/actuation spray,suspension 1 spray intranasal BID Qty: 16 3RF Rx Instructions: administer into each nostril loratadine [Allergy Relief (loratadine)] 10 mg tablet 10 mg PO DAILY PRN (Reason: allergy symptoms) Qty: 30 0RF mirtazapine 7.5 mg tablet 7.5 mg PO BEDTIME Gemtesa 75 mg tablet 75 mg PO DAILY 90 Days Qty: 90 3RF cholecalciferol (vitamin D3) 25 mcg (1,000 unit) capsule 25 mcg PO DAILY Qty: 90 3RF ferrous sulfate 325 mg (65 mg iron) tablet 325 mg PO BID 90 Days Qty: 180 3RF polyethylene glycol 3350 [Miralax] 17 gram/dose powder 17 g PO DAILY Qty: 238 3RF (DME) motorized scooter See Rx Instructions .Route .MEDSUPPLY Qty: 1 0RF Rx Instructions: As directed Referrals: Uzair Bearden FNP-C [Primary Care Provider, Internal Medicine] Clinical Impression: Acute viral syndrome Interventions: ED Discharge Assessment Last Done: 05/30/25 01:00 Discharge Date/Time: 05/30/25 01:05 Print Language: Mohawk
[2025-05-29 18:43] LABS: MANUAL DIFF FLAG NO
[2025-05-29 18:57] LABS: Anion Gap 13 (12-20); Blood Urea Nitrogen 15 mg/dL (9-16); Calcium 9.1 mg/dL (8.4-10.2); Carbon Dioxide 22 mmol/L (22-29); Chloride 108 mmol/L (96-108); Creatinine Clr Calc Pharmacy 66.3; Estimated Glomerular Filt Rate > 60; Potassium 4.4 mmol/L (3.3-5.1); Sodium 139 mmol/L (135-145)
[2025-05-29 19:07] LABS: Troponin-I High Sensitivity < 2.7 ng/L (<3.5-17.0)
--- OUTSIDE RECORDS SUMMARY | 2025-05-29 20:07 | XMS_ITS | Clinical Summary ---
Author Organization [facility] Address [address] [place] [address] Phone Care Team Providers Care System Engineer Name Role Phone Uzair Bearden NP Primary Care Provider Encounters Date Type Department Care Team Description 05/05/2025 Transcribe Orders [facility] [address] [place] [address] [place], [place] [id number] Uzair Bearden NP Encounter for rehabilitation (Primary [...] Description 06/01/2025 10:00 AM EST Office Visit [facility] [address] [place] [id number] Uzair Bearden NP [address] [place] [id number] Marcy Chavez OT [address] [place] [address] [email or web address] Health Maintenance Due Date Last Done Comments [...] REPLACEMENT [employer] PPO MEDICARE REPLACEMENT Care Teams System Engineer Relationship Specialty Start Date End Date Uzair Bearden NP [address] [place] [address] [address] [place] [address] PCP - General Nurse Practitioner 04/30/25 Additional Source Comments The information contained in this document represents components of the legal health record. It is not the complete legal health record.[facility]
--- OUTSIDE RECORDS SUMMARY | 2025-05-29 20:07 | XMS_ITS | Patient Health Record ---
Author Organization [facility] Address [address] [place] [address] Care Team Providers Care Reel Man Name Role Phone Ishmael Zhou MD [...] Status Risk Notes Problem Colon cancer screening (096403756) Colon cancer screening (Z12.11) Active confirmed Problem Gastroesophageal reflux disease with esophagitis (535568942) Gastroesophageal reflux disease with esophagitis (K21.0) Active confirmed Problem Iron deficiency anemia (19751115) Iron deficiency anemia, unspecified iron deficiency anemia type (D50.9) Active confirmed Problem Essential hypertension (23673467) Hypertension, unspecified type (I10) Active confirmed Plan Of Treatment Future Test Test Name Order Date COLONOSCOPY 01/01/2019 Insurance Providers Payer Name Payer Address Payer Phone Subscriber Number Group Number Insured Name Patient Relationship to Insured Coverage Start Date Coverage End Date MEDICARE OF [place] [address] [place] [address] [id number] ABEL DUMONT Self - patient is the insured [facility] [address] [place] [address] [id number] ABEL DUMONT Self - patient is the insured Medical (General) History Medical History History ICD Code colonoscopy 11-17-2008 depression history of postprandial vomiting which w as associated with nausea Denies SD,DM,CVA,Lung disease,renal dise ase sciatica urinary incontinence Surgical History Surgery Date(Month/Year) cholecystectomy 11/24/2017 Bladder suspension
--- OUTSIDE RECORDS SUMMARY | 2025-05-29 20:07 | XMS_ITS | Patient Health Record ---
Author Organization [facility] [place] Address [address] [address] Care Team Providers Care Glass Installer Technician Name Role Phone Abelardo ROSALES, Ishmael Primary Care Provider Kelsey Floyd Unavailable [phone] Allergies No Known Allergies Reason For Referral [...] Problem Acquired hammer toe of left foot (3100430794874981) Other hammer toe(s) (acquired), left foot (M20.42) Active confirmed Problem Gouty arthritis of left foot (2166290148699757) Gouty arthritis of left foot (M10.9) Active confirmed Problem Localized, primary osteoarthritis of the ankle and/or foot (119839686) Arthritis of joint of lesser toe, left (M19.072) Active confirmed Plan Of Treatment Pending Test Test Name Order Date *Uric Acid, Serum 04/22/2024 *CBC With Differential/Platelet 04/22/20 24 ESR 04/22/2024 X ray : Foot, left 3V 04/22/2024 Next Appt Details Provider Name:Joslyn garcia, 05/31/2025 01:30:00 PM, [address] [place], [address], Insurance Providers Payer Name Payer Address Payer Phone Subscriber Number Group Number Insured Name Patient Relationship to Insured Coverage Start Date Coverage End Date [employer] [address] [place] [phone] [id number] Lindsay Mace Self - patient is the insured Medical (General) History Medical History History ICD Code Anemia Arthritis Knee Pain Cataracts Depression Headaches/Migraines High blood pressure Kidney disease Osteoporosis Psychiatric disorder Sciatica Mumps Chicken pox Surgical History Surgery Date(Month/Year) gall stones
[2025-05-29 20:16] LABS: Hematocrit 32.1 % (37.0-47.0); Hemoglobin 9.4 g/dl (12.0-16.0); Imm Gran Abs Auto 0.05 X10*3/uL (0.00-0.03); Imm Gran Pct Auto 0.5 % (0.0-0.4); Lymphocytes Absolute Auto 1.5 X10*3/uL (1.2-4.9); Mean Corpuscular HGB Conc 29.3 g/dl (31.0-35.0); Mean Corpuscular Hemoglobin 22.3 pg (27.0-33.0); Mean Corpuscular Volume 76.2 fL (80.0-98.0); NRBC Abs Auto 0.000 X10*3/uL (0.0-0.012); NRBC Pct Auto 0.0 /100WBC (0.0-0.2); Platelet Count 393 X10*3/uL (160-400); Red Blood Count 4.21 X10*6/uL (4.20-5.50); White Blood Count 9.3 X10*3/uL (4.8-10.8)
[2025-05-29 20:32] VITALS: BP 146/68; PULSE 73; RESP 18; TEMP 36.4; O2SAT 100
--- NOTE | 2025-05-29 21:24 | PC.NURSE ---
20 g IV placed in the right AC
[2025-05-29] MEDS: iohexoL 350 MG/ML 100 ML INFUS..BTL IV (22:16)
[2025-05-29 22:20] LABS: Resp Syncy Virus RNA Qual PCR NEGATIVE (Negative); SARS COV2 PCR INHOUSE NEGATIVE (Negative)
[2025-05-29 22:46] VITALS: BP 151/54; PULSE 75; RESP 18; TEMP 36.4; O2SAT 98
[2025-05-30 00:15] LABS: Appearance Urine Clear; Glucose Urine UA 100 mg/dL (Negative); PH 5.5 (5.0-9.0); Specific Gravity - Urine >= 1.030 (1.005-1.025)
[2025-05-30 00:18] VITALS: BP 146/63; PULSE 76; RESP 18; TEMP 36.4; O2SAT 97
--- NOTE | 2025-05-30 00:54 | PC.NURSE ---
this RN went into ed5 to educate patient on discharge regarding all testing being negative and possible cause for symptoms being a viral illness. patient proceeded to ask for a pain medication to treat this viral illness. educated pt that viral illnesses require supportive care including lots of fluid/rest and taking staggered doses of ibuprofen/tylenol as needed for pain per Pradeep PATEL discharge instructions. patient then proceeded to state tylenol, what will tylenol do, nothing. and also asked for a medication that will put her to sleep. this RN educated that patient can follow up with pcp regarding home medication adjustments to help her with her sleep. patient then stated bitch. and then stated well I was hoping to have to stay at least one night. this RN notified Pradeep PATEL of all above and he went in to educate her again on discharge instructions. patient is axox4 ambulatory and drove herself and had previously stated she can drive herself home at discharge.
[2025-05-30 01:00] VITALS: BP 146/63; PULSE 76; RESP 18; TEMP 36.4; O2SAT 97
== END 2025-05-30 01:05 | disposition home or self-care (01) ==
PROVIDERS: Physician Assistant; Emergency Provider Emergency Medicine
DX: B34.9 Viral infection, unspecified (principal); R10.819 Abdominal tenderness, unspecified site; I10 Essential (primary) hypertension; Z03.818 Encounter for observation for suspected exposure to other biological agents ruled out
CPT/HCPCS: 36415; 51701; 71046; 74177; 80048; 80076; 81003; 83690; 84484; 85025; 87637; 93005; 96361; 96374; 99285; J1885; Q9967

== ENCOUNTER → 2025-05-29 16:59 | Outpatient (BNV) | payer MEDICARE, SELFPAY | PROVIDERS: Emergency Provider Emergency Medicine; Visit Provider Internal Medicine Cardiovascular Disease | DX: R94.31 Abnormal electrocardiogram [ECG] [EKG] (principal); R05.9 Cough, unspecified | CPT/HCPCS: 93010 ==

== ENCOUNTER → 2025-05-29 17:29 | Outpatient (BNV) | payer MEDICARE, SELFPAY | PROVIDERS: Visit Provider Radiology Diagnostic Radiology | DX: K44.0 Diaphragmatic hernia with obstruction, without gangrene (principal); N85.00 Endometrial hyperplasia, unspecified; K57.92 Diverticulitis of intestine, part unspecified, without perforation or abscess without bleeding; K59.00 Constipation, unspecified | CPT/HCPCS: 71046; 74177 ==

== ENCOUNTER 2025-06-23 13:27 | Outpatient (AMB) | payer MEDICARE, SELFPAY ==
--- NOTE | 2025-06-23 14:20 | A.OFFVIS_ITS ---
Intake Visit Reasons: Follow up appt Allergies cat dander (cats) Allergy (Verified 05/29/25 17:27) Itching Medication List - Last Reconciled 06/23/25 by Edelmira Camilo MD bupropion HCl XL 300 mg PO DAILY carbamazepine 200 mg PO BID cholecalciferol (vitamin D3) 25 mcg PO DAILY citalopram 20 mg PO DAILY cyanocobalamin (vitamin B-12) 1,000 mcg sublingual DAILY diaper,brief,adult,disposable ([employer] Comfort Protect Adult Diaper X- Large) As directed ferrous sulfate 325 mg PO BID 90 days fluticasone propionate 50 mcg/actuation 1 spray intranasal BID gabapentin 600 mg PO TID loratadine (Allergy Relief (loratadine)) 10 mg PO DAILY PRN losartan 25 mg PO DAILY mirtazapine 7.5 mg PO BEDTIME [motorized scooter As directed] olanzapine 7.5 mg PO DAILY omeprazole 40 mg PO DAILY polyethylene glycol 3350 (Miralax) 17 grams PO DAILY [pull ups twice per day as needed] vibegron (Gemtesa) 75 mg PO DAILY 90 days HPI Comments Details: complaining of 6/10 pain in left maxillary area. Getting some dental work done. Taking Gabapentin 600mg bid . No side effects from medication. Continues to use cold packs at night. Pain was previously under control with Carbamazepine until it was switched to a different sharepoint solutions developer. MRI showed no trigeminal lesion and no sinus lesions. . For the last 50+ years, she has had left facial pain mostly over the left maxillary area which is continuous and constant and is worse when she lies down at night and has some pressure on the left face. All of her top teeth were removed in 2014, but this has not had any impact on the pain. She tried Aleve and Tylenol for the pain. She had a CT scan of her sinuses which was normal. There is no history of facial trauma or fractures. ?Numbness to R 4th and 5th finger has resolved. 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 Herniation of left side of L4-L5 intervertebral disc Bilateral primary osteoarthritis of knee Encounter for initial annual wellness visit (AWV) in Medicare patient Schizophrenia Surgical History History of esophagogastroduodenoscopy (EGD) Hx of colonoscopy History of laparoscopic cholecystectomy History of cardiac catheterization History of cataract surgery History of throat surgery History of bladder surgery Family History Father Past heart attack Diabetes Mother Past heart attack Paternal Grandmother Stomach cancer Other Mental health disorder Social History Household Members: None Housing: Apartment Are you a primary youth care specialist to a significant other at home: No Do you presently have visiting nurse or other home services: No Alcohol intake: never Patient Tobacco Use Status: Never used Tobacco Tobacco use type: Cigarette e-Cigarette/Vaping Use: Never Used Second Hand Smoke Exposure: No service: No Current occupational status: disabled Cognitive needs: Yes (cane) Hearing needs: No Vision needs: No Review of Systems Const Details: General/Constitutional:? Change in appetite?denies.? Chills?denies.? Fatigue?denies.? Fever?denies .? Weight gain?admits.? Weight loss?denies.? ?? Sleep:? Difficulty getting to sleep?admits.? Difficulty maintaining sleep?denies? .? Urge to move legs?denies.? Teeth grinding?admits.? Shouting or Kicking during sleep?admits.? Abnormal behavior during sleep?denies.? Excessive sleep?admits.? Snoring?denies.? Daytime sleepiness?denies.? ?? Respiratory:? Shortness of breath?admits.? Chest pain?denies.? Cough?denies.? ?? Cardiovascular:? Chest pain at rest?denies.? Chest pain with exertion?denies.? Claudication?denies.? Dizziness?denies.? Fluid accumulation in the legs?denies.? Irregular heartbeat?denies.? Palpitations?denies.? ?? Gastrointestinal:? Abdominal pain?denies.? Constipation?denies.? Diarrhea?denies.? Difficulty swallowing?denies.? Heartburn?denies.? Nausea?denies.? Rectal bleeding?denies.? ?? Genitourinary:? Frequent urination?admits.? Urgency?denies.? Incontinence?denies.? Erectile Dysfunction?denies.? ?? Musculoskeletal:? Neck pain?denies.? Back pain?denies.? Muscle aches?denies.? Painful joints?admits.? Sciatica?denies.? Weakness?denies.? ?? Neurologic:? Difficulty swallowing?denies.? Balance difficulty?denies.? Coordination? normal.? Difficulty speaking?admits.? Dizziness?denies.? Fainting?denies.? Gait abnormality?denies.? Headache?denies.? Loss of strength?denies.? Loss of use of extremity?denies.? Low back pain?denies.? Memory loss?admits.? Seizures?denies.? Tics?denies.? Tingling/Numbness?denies.? Transient loss of vision?denies.? Tremor?denies.? ?? Psychiatric:? Anxiety?admits.? Auditory/visual hallucinations?denies.? Delusions?denies .? Depressed mood?admits.? Stressors?denies.? Substance abuse?denies.? Suicidal thoughts?denies.? ?? Physical Exam Neuro Other: Neurological: ? Abnormal neurological findings:?slight tenderness left maxillary area.? Mental Status:?alert and oriented X 3,?Normal attention, orientation, memory and affect.? Cranial Nerves:?Pupils are equal, round and reactive to light. Fundoscopy shows normal disc bilaterally. External occular muscles are intact. Visual darby are full, no ptosis. Face is symmetrical, no facial weakness or droop. Facial sensations are normal. Tongue protrudes in midline. Palate elevates symmetrically. Shoulder shrugging is normal..? Motor Examination:?Normal muscle tone, bulk and strength,?No atrophy or fasciculations,?No drift of the extended upper extremities,?Deep tendon reflexes are 2+?,?Plantars are flexor?.? Straight Leg Raising:?90 degrees.? Sensory Exam:?Normal light touch, temperature, pinprick, vibration and joint-position sensations?,?Rhomberg sign is absent.? Coordination:?no ataxia,?no titubation,?ernekk-go-fhnr, firz-akwc-ozaq test and rapid alternating movements were normal.? Gait Exam:?Within normal limits.? Cerebellar Signs:?Zddcar-yk-hxwh and hchv-nj-drfc is normal,?no dysdiadochokinesia?.? Extrapyramidal System:?No tremor, rigidity with normal facial expressions,?No bradykinesia, no bradyphrenia. Normal arm swing and posture. No propulsion or retropulsion.? Speech:?Normal,?no dysphasia or dysarthria..? Mini Mental Status Exam: ? Level of Consciousness:?Alert.? Orientation:?Knows correct year, month, date, day and season,?Knows correct city, county and state. Knows correct location and floor.? Registration:?Able to register 3 objects.? Attention:?Serial 7's performed accurately.? Recall:?Able to recall 3 out of 3 objects.? Language:?Normal spontaneous speech, fluency, repetition,naming, comprehension, reading and writing.? Total Score:?30/30.? General Examination: ? GENERAL APPEARANCE:??normal,?in no acute distress.? HEART:??S1, S2 normal,?no murmurs.? LUNGS:??clear anteriorly and posteriorly.? MUSCULOSKELETAL:??normal.? EXTREMITIES:??no edema.? PSYCH:??alert, oriented,?cognitive function intact,?cooperative with exam.? Assessment & Plan Assessment & Plan (1) Facial pain syndrome: Comment: 10/24/22 MRI Brain : chronic ischemic microangiopathy in the white matter of both cerebral hemispheres. No acute intracranial process. Bilateral mastoid effusions and right middle ear cavity fluid with associated with some mastoid enhancement enhancement suggesting inflammatory changes. Code(s): G50.0 - Trigeminal neuralgia Category: Medical Plan Refill Gabapentin Capsule, 300 MG, 2 capsules, Orally, tid, 90 days, 540 Capsule, Refills 1 Facial pain : Increase gabapentin to 600mg tid. ?? Medications: Changed From gabapentin 600 mg PO TID To gabapentin take two capsules by mouth twice daily at 9am and 5pm 600 mg (2 x 300 mg) PO TID 540 caps 1RF 90 days Coding Level of Care Code Est Pt Level 4 (32712) Diagnoses Facial pain syndrome G50.0
--- OUTSIDE RECORDS SUMMARY | 2025-06-23 16:02 | XMS_ITS | Patient Health Record ---
Author Organization [facility] Zuleika shereen Vega Address [address] [place] [address] Care Team Providers Care Pressurization Mechanic Name Role Phone Kelsey Hess Unavailable [phone] Joslyn Winston Unavailable [phone] Allergies No Known Allergies Reason For Referral No Information Medications Medication SIG (Take, Route, Fr equency, Duration) Notes Start Date End Date Status buPROPion HCl Active Omeprazole Active Cyanocobalamin Activ e Citalopram Hydrobromide Active Ferrous Sulfate Acti ve carBAMazepine Active Diaper Guard Active amLODIPine Besylate Active Immunizations Vaccine Route Administration Date Status Comme nts Influenza Unknown 04/21/2025 Administered Social History Tobacco Use: Social History Observation Description Date Details (start date - stop date) Never Smoker NA - NA Alcohol Screen Question Answer Notes Did you have a drink containing alcohol in the p ast year? No Points 0 Interpretation Negative Tobacco use other than smoking: Question Answer Notes Are you an other tobacco user? No Tobacco Control (Standard) Question Answer Notes Tobacco use: Nonsmoker AUDIT-C (Standard) Question Answer Notes Did you have a drink containing alcohol in the p ast year? No Points 0 Interpretation Negative Problems Problem Type SNOMED Code ICD Code Onset Dates Problem Status W/U Status Risk Notes Problem Acquired hammer toe of left foot (3963253566096090) Other hammer toe(s) (acquired), left foot (M20.42) Active confirmed Problem Gouty arthritis of left foot (6789596186671848) Gouty arthritis of left foot (M10.9) Active confirmed Problem Localized, primary osteoarthritis of the ankle and/or foot (050394096) Arthritis of joint of lesser toe, left (M19.072) Active confirmed Vital Signs Blood pressure diastolic 74 mm Hg 05/31/2025 Height 5ft4in in 05/31/2025 Blood pressure systolic 120 mm Hg 05/31/2025 Weight 195 lbs 05/31/2025 BMI 33.47 kg/m2 05/31/2025 Procedures Procedure Date Ordered Date Performed Result Body Sit e 03605-Pluoihmj Plate 05/31/2025 N/A Encounters Encounter Location Date Provider Diagnosis [facility] [address] [place] [address] 05/31/2025 Joslyn Winston Ingrown nail L60.0 Assessments Encounter Date Diagnosis (ICD Code) Assessment Notes Treatment Notes Treatment Clinical Notes Section Notes 05/31/2025 Ingrown nail (ICD-10 - L60.0) Plan Of Treatment Pending Test Test Name Order Date *Uric Acid, Serum 04/22/2024 *CBC With Differential/Platelet 04/22/20 24 ESR 04/22/2024 X ray : Foot, left 3V 04/22/2024 88113-Ytaylyne Plate 05/31/2025 Next Appt Details Provider Name:Joslyn garcia, 08/23/2025 03:15:00 PM, [address] [place] [address], [id number], Insurance Providers Payer Name Payer Address Payer Phone Subscriber Number Group Number Insured Name Patient Relationship to Insured Coverage Start Date Coverage End Date [employer] [address] [place] [phone] [id number] Lindsay Mace Self - patient is the insured Medical (General) History Medical History History ICD Code Anemia Arthritis Knee Pain Cataracts Depression Headaches/Migraines High blood pressure Kidney disease Osteoporosis Psychiatric disorder Sciatica Mumps Chicken pox Surgical History Surgery Date(Month/Year) gall stones Hospitalization History Reason Date(Month/Year) viral infection 06/15
--- OUTSIDE RECORDS SUMMARY | 2025-06-23 16:02 | XMS_ITS | Clinical Summary ---
Author Organization [facility] Address [address] [place] [phone] Phone Care Team Providers Care Combining Machine Operator Name Role Phone Uzair Bearden NP Primary Care Provider Encounters Date Type Department Care Team Description 06/01/2025 10:00 AM EST Office Visit [facility] [address] [address] Uzair Bearden NP Vaine, Samantha OT Dyspnea, unspecified type (Primary Dx) 05/05/2025 Transcribe Orders [facility] [address] [place] [address] Uzair Bearden NP Encounter for rehabilitation (Primary [...] Orientation Not on file Plan of Treatment Health Maintenance Due Date Last Done Comments [...] Medical Devices Not on file Insurance AETNA [facility] MEDICARE REPLACEMENT AETNA [facility] MEDICARE REPLACEMENT AETNA PPO MEDICARE REPLACEMENT AETNA PPO MEDICARE REPLACEMENT AETNA PPO MEDICARE REPLACEMENT AETNA PPO MEDICARE REPLACEMENT Care Teams Combining Machine Operator Relationship Specialty Start Date End Date Uzair Bearden NP [address] [place] [address] PCP - General Nurse Practitioner 04/30/25 Additional Source Comments The information contained in this document represents components of the legal health record. It is not the complete legal health record.[facility]
== END 2025-06-23 14:34 | disposition home or self-care (01) ==
LOC: HO.HSM 13:28
PROVIDERS: Visit Provider Psychiatry & Neurology Neurology
DX: G50.0 Trigeminal neuralgia (principal)
CPT/HCPCS: 99214

== ENCOUNTER → 2025-06-23 13:27 | Outpatient (BNVA) | payer MEDICARE, SELFPAY | PROVIDERS: Visit Provider Psychiatry & Neurology Neurology | DX: G50.0 Trigeminal neuralgia (principal); Z79.899 Other long term (current) drug therapy | CPT/HCPCS: 99212 ==